=== PATIENT | male | born 1990 | race Caucasian/White ===

== ENCOUNTER 2016-05-25 19:27 | Emergency (ER) | payer MEDICARE, MEDICAID ==
[2016-05-25 19:42] VITALS: BP 166/86
[2016-05-25] MEDS ORDERED: NS 0.9% 1000 ML* 2,000 ML IV ONE (20:24)
[2016-05-25 20:45] LABS: Comments Flag Yes; Hematocrit 37 % (42-52); Hemoglobin 12.3 g/dl (14.0-18.0); Mean Corpuscular HGB Conc 33 g/dl (31-36); Mean Corpuscular Hemoglobin 24 pg (27-31); Mean Platelet Volume 8 um3 (7.4-10.4); Red Blood Count 5.07 10^6/ul (4.0-5.4); Red Cell Distribution Width 15 % (10.5-15); White Blood Count 4.5 10^3/ul (3.5-10.8)
[2016-05-25 20:46] LABS: Mean Corpuscular Volume 74 fL (80-94)
[2016-05-25 20:56] LABS: ALT 237 U/L (7-52); AST 94 U/L (13-39); Albumin 3.8 g/dL (3.2-5.2); Alkaline Phosphatase 223 U/L (34-104); Anion Gap 8 mmol/L (2-11); BUN/Creatinine Ratio 11.4 (8-20); Blood Urea Nitrogen 9 mg/dL (6-24); C Reactive Protein 17.75 mg/L (< 5.00); CO2 Carbon Dioxide 28 mmol/L (22-32); Calcium 9.4 mg/dL (8.6-10.3); Chloride 97 mmol/L (101-111); Creatine Kinase 63 U/L (10-223); EGFR Non-African American 120.5 (>60); Globulin 3.5 g/dL (2-4); Glucose 148 mg/dL (70-100); Lipase 14 U/L (11.0-82.0); Potassium 3.7 mmol/L (3.5-5.0); Sodium 133 mmol/L (133-145); Total Protein 7.3 g/dL (6.4-8.9)
[2016-05-25 20:56] LABS: Urine Bacteria Absent (Absent); Urine Bilirubin 2+ (Negative); Urine Glucose Negative (Negative); Urine Nitrite Negative (Negative)
[2016-05-25 20:59] LABS: Acetaminophen < 15 mcg/mL
[2016-05-25] MEDS ORDERED: Iodixanol 320 (CONTRAST) 100 ML SDV IV ONE (21:17)
--- NOTE | 2016-05-25 21:47 | RAD ---
INDICATION: Painless jaundice, history of hepatitis. COMPARISON: There are no prior studies available for comparison. TECHNIQUE: A CT scan of the abdomen and pelvis was performed with intravenous and without oral contrast following intravenous injection of 141 ml of Visipaque 320 nonionic contrast. Contiguous axial sections were obtained from the lung bases through the symphysis pubis. Images were reconstructed in the coronal and sagittal planes. FINDINGS: The lung bases are clear. No pleural effusion is present. The liver and spleen are markedly enlarged. The liver is decreased in attenuation consistent with fatty infiltration. No significant focal abnormality is seen. There appear to be varices in the splenic hilum. No calcified gallstones are seen. There is mild gallbladder wall thickening. The pancreas appears to be within normal limits. The kidneys and adrenal glands are normal in size. No hydronephrosis is seen. No significant focal renal abnormality is seen. The aorta is normal in caliber and demonstrates homogeneous contrast opacification. There are enlarged periportal lymph nodes measuring up to 2.5 cm in transverse dimension. There are also mildly prominent retroperitoneal lymph nodes in the upper abdomen measuring up to 1.0 cm in transverse dimension. The stomach, small and large bowel appear nondistended. The appendix is within normal limits. There is mild descending and sigmoid diverticulosis without evidence for diverticulitis. No free intraperitoneal air or fluid is seen. No significant focal osseous abnormality is seen. IMPRESSION: MARKED HEPATOSPLENOMEGALY. THERE IS MILD GALLBLADDER WALL THICKENING AND PERIPORTAL AND MILD RETROPERITONEAL LYMPHADENOPATHY. THESE FINDINGS ARE NONSPECIFIC ALTHOUGH WOULD RAISE THE POSSIBILITY OF HEPATITIS. IN ADDITION SPLENIC HILUM VARICES CONCERNING FOR THE POSSIBILITY OF PORTAL HYPERTENSION. AN ALTERNATIVE AND LESS LIKELY POSSIBILITY THAT WOULD ACCOUNT FOR MOST OF THESE FINDINGS WOULD BE LYMPHOMA. RECOMMEND CLINICAL CORRELATION.
--- NOTE | 2016-05-25 23:59 | ED ---
Lee Raza Billy, scribed for Sage Dumont MD on 05/25/16 at 2002 . GI/ HPI - HPI Summary HPI Summary: Patient is a 25 year-old male coming to [facility] for evaluation of dark, tea- colored urine for the last 2 days. Patient also reports that he has been constipated for a similar duration. He also noticed recently that his eyes appear to have a yellowish tint. Patient states that he has been using IV opiates intermittently for the last several years. He was also tested positive for hepatitis in the past. - History of Current Complaint Chief Complaint: EDUrogenitalProblems Time Seen by Provider: 05/25/16 19:54 Stated Complaint: DARK URINATION/JOINT PAIN Hx Obtained From: Patient Onset/Duration: Started Days Ago Timing: Constant Severity: Moderate Current Severity: Moderate Pain Intensity: 0 Associated Signs and Symptoms: Positive: Constipation, Other: - discolored urine , yellowish tint in eyes, Aggravating Factor(s): Nothing Alleviating Factor(s): Nothing - Additional Pertinent History Primary Care Physician: [id number] - Allergy/Home Medications Allergies/Adverse Reactions: Allergies Allergy/AdvReac Type Severity Reaction Status Date / Time Acetaminophen [From Tylenol] Allergy Intermediate Hives Verified 05/25/16 19:40 PMH/Surg Hx/FS Hx/Imm Hx Endocrine/Hematology History: Reports: Hx Diabetes - Type II Denies: Hx Thyroid Disease Cardiovascular History: Denies: Hx Hypertension Respiratory History: Denies: Hx Asthma, Hx Chronic Obstructive Pulmonary Disease (COPD) GI History: Denies: Hx Ulcer Musculoskeletal History: Reports: Hx Back Problems Denies: Hx Scoliosis Neurological History: Denies: Hx Headaches, Other Neuro Impairments/Disorders Psychiatric History: Reports: Hx Substance Abuse - IV drug use - Surgical History Surgery Procedure, Year, and Place: Abcess I+D bilateral AC's. Pleuracentesis Infectious Disease History: Yes Infectious Disease History: Reports: Hx of Known/Suspected MRSA - Left AC, History Other Infectious Disease - MRSA Denies: Hx Hepatitis, Hx Human Immunodeficiency Virus (HIV), Traveled Outside the [place] in Last 30 Days - Family History Known Family History: Positive: Hypertension, Diabetes - Social History Alcohol Use: None Alcohol Amount: pt denies alcohol use Substance Use Type: Reports: None, Heroin Substance Use Comment - Amount & Last Used: recent use, exact date unknown to SW Hx Tobacco Use: Yes Smoking Status (MU): Never Smoked Tobacco Type: Smokeless Tobacco Have You Smoked in the Last Year: No Review of Systems Positive: Other - yellow tint Positive: Other - constipation Positive: see HPI All Other Systems Reviewed And Are Negative: Yes Physical Exam Triage Information Reviewed: Yes Vital Signs On Initial Exam: Initial Vitals Temp Pulse Resp BP Pulse Ox 98 F 101 18 166/86 99 05/25/16 19:37 05/25/16 19:37 05/25/16 19:37 05/25/16 19:37 05/25/16 19:37 Vital Signs Reviewed: Yes Appearance: Positive: Well-Appearing, No Pain Distress Skin: Positive: Warm, Skin Color Reflects Adequate Perfusion, Dry Head/Face: Positive: Normal Head/Face Inspection Eyes: Positive: Other: - Scleral icterus. ENT: Positive: Normal ENT inspection Respiratory/Lung Sounds: Positive: Clear to Auscultation, Breath Sounds Present Cardiovascular: Positive: Tachycardia Abdomen Description: Positive: Nontender, Soft Musculoskeletal: Positive: Strength/ROM Intact, Edema Left - trace pedal edema, Edema Right - trace pedal edema Neurological: Positive: Normal, Sensory/Motor Intact, Alert, Oriented to Person Place, Time Psychiatric: Positive: Affect/Mood Appropriate - Josy Coma Scale Coma Scale Total: 15 Diagnostics - Vital Signs Vital Signs Temp Pulse Resp BP Pulse Ox 05/25/16 19:37 98 F 101 18 166/86 99 - Laboratory Lab Results: Lab Results 05/25/16 05/25/16 05/25/16 Range/Units 20:00 20:21 20:21 WBC 4.5 (3.5-10.8) 10^3/ul RBC 5.07 (4.0-5.4) 10^6/ul Hgb 12.3 L (14.0-18.0) g/dl Hct 37 L (42-52) % MCV 74 L (80-94) fL MCH 24 L (27-31) pg MCHC 33 (31-36) g/dl RDW 15 (10.5-15) % Plt Count 153 (150-450) 10^3/ul MPV 8 (7.4-10.4) um3 Neut % (Auto) 45.6 (38-83) % Lymph % (Auto) 41.2 (25-47) % [place] % (Auto) 10.1 H (1-9) % Eos % (Auto) 2.4 (0-6) % Baso % (Auto) 0.7 (0-2) % Absolute Neuts (auto) 2.0 (1.5-7.7) 10^3/ul Absolute Lymphs (auto) 1.8 (1.0-4.8) 10^3/ul Absolute Monos (auto) 0.5 (0-0.8) 10^3/ul Absolute Eos (auto) 0.1 (0-0.6) 10^3/ul Absolute Basos (auto) 0 (0-0.2) 10^3/ul Absolute Nucleated RBC 0 10^3/ul Nucleated RBC % 0 INR (Anticoag Therapy) 1.05 (0.89-1.11) APTT 28.3 (26.0-36.3) seconds Sodium (133-145) mmol/L Potassium (3.5-5.0) mmol/L Chloride (101-111) mmol/L Carbon Dioxide (22-32) mmol/L Anion Gap (2-11) mmol/L BUN (6-24) mg/dL Creatinine (0.67-1.17) mg/dL Est GFR ( Amer) (>60) Est GFR (Non-Af Amer) (>60) BUN/Creatinine Ratio (8-20) Glucose (70-100) mg/dL Lactic Acid (0.5-2.0) mmol/L Calcium (8.6-10.3) mg/dL Total Bilirubin (0.2-1.0) mg/dL AST (13-39) U/L ALT (7-52) U/L Alkaline Phosphatase (34-104) U/L Total Creatine Kinase (10-223) U/L C-Reactive Protein (< 5.00) mg/L Total Protein (6.4-8.9) g/dL Albumin (3.2-5.2) g/dL Globulin (2-4) g/dL Albumin/Globulin Ratio (1-3) Lipase (11.0-82.0) U/L Urine Color [place] Urine Appearance Turbid Urine pH 5.0 (5-9) Ur Specific [place] 1.025 (1.010-1.030) Urine Protein 1+(30 mg/dl) H (Negative) Urine Ketones Negative (Negative) Urine Blood Negative (Negative) Urine Nitrate Negative (Negative) Urine Bilirubin 2+ (Negative) Urine Urobilinogen Positive H (Negative) Ur Leukocyte Esterase Negative (Negative) Urine WBC (Auto) Absent (Absent) Urine RBC (Auto) Trace(0-2/hpf) (Absent) Ur Squamous Epith Cells Present H (Absent) Amorphous Crystals Present H (Absent) Urine Bacteria Absent (Absent) Urine Glucose Negative (Negative) Urine Ascorbic Acid Not Reportable Acetaminophen mcg/mL 05/25/16 05/25/16 Range/Units 20:21 20:21 WBC (3.5-10.8) 10^3/ul RBC (4.0-5.4) 10^6/ul Hgb (14.0-18.0) g/dl Hct (42-52) % MCV (80-94) fL MCH (27-31) pg MCHC (31-36) g/dl RDW (10.5-15) % Plt Count (150-450) 10^3/ul MPV (7.4-10.4) um3 Neut % (Auto) (38-83) % Lymph % (Auto) (25-47) % [place] % (Auto) (1-9) % Eos % (Auto) (0-6) % Baso % (Auto) (0-2) % Absolute Neuts (auto) (1.5-7.7) 10^3/ul Absolute Lymphs (auto) (1.0-4.8) 10^3/ul Absolute Monos (auto) (0-0.8) 10^3/ul Absolute Eos (auto) (0-0.6) 10^3/ul Absolute Basos (auto) (0-0.2) 10^3/ul Absolute Nucleated RBC 10^3/ul Nucleated RBC % INR (Anticoag Therapy) (0.89-1.11) APTT (26.0-36.3) seconds Sodium 133 (133-145) mmol/L Potassium 3.7 (3.5-5.0) mmol/L Chloride 97 L (101-111) mmol/L Carbon Dioxide 28 (22-32) mmol/L Anion Gap 8 (2-11) mmol/L BUN 9 (6-24) mg/dL Creatinine 0.79 (0.67-1.17) mg/dL Est GFR ( Amer) 155.0 (>60) Est GFR (Non-Af Amer) 120.5 (>60) BUN/Creatinine Ratio 11.4 (8-20) Glucose 148 H (70-100) mg/dL Lactic Acid 0.8 (0.5-2.0) mmol/L Calcium 9.4 (8.6-10.3) mg/dL Total Bilirubin 3.80 H (0.2-1.0) mg/dL AST 94 H (13-39) U/L ALT 237 H (7-52) U/L Alkaline Phosphatase 223 H (34-104) U/L Total Creatine Kinase 63 (10-223) U/L C-Reactive Protein 17.75 H (< 5.00) mg/L Total Protein 7.3 (6.4-8.9) g/dL Albumin 3.8 (3.2-5.2) g/dL Globulin 3.5 (2-4) g/dL Albumin/Globulin Ratio 1.1 (1-3) Lipase 14 (11.0-82.0) U/L Urine Color Urine Appearance Urine pH (5-9) Ur Specific [place] (1.010-1.030) Urine Protein (Negative) Urine Ketones (Negative) Urine Blood (Negative) Urine Nitrate (Negative) Urine Bilirubin (Negative) Urine Urobilinogen (Negative) Ur Leukocyte Esterase (Negative) Urine WBC (Auto) (Absent) Urine RBC (Auto) (Absent) Ur Squamous Epith Cells (Absent) Amorphous Crystals (Absent) Urine Bacteria (Absent) Urine Glucose (Negative) Urine Ascorbic Acid Acetaminophen < 15 mcg/mL Result Diagrams: 05/25/16 20:21 05/25/16 20:21 Lab Statement: Any lab studies that have been ordered have been reviewed, and results considered in the medical decision making process. - CT abd/pel CT Interpretation Completed By: Radiologist - MARKED HEPATOSPLENOMEGALY. THERE IS MILD GALLBLADDER WALL THICKENING AND PERIPORTAL AND MILD RETROPERITONEAL LYMPHADENOPATHY. THESE FINDINGS ARE NONSPECIFIC ALTHOUGH WOULD RAISE THE POSSIBILITY OF HEPATITIS. IN ADDITION SPLENIC HILUM VARICES CONCERNING FOR THE POSSIBILITY OF PORTAL HYPERTENSION. AN ALTERNATIVE AND LESS LIKELY POSSIBILITY THAT WOULD ACCOUNT FOR MOST OF THESE FINDINGS WOULD BE LYMPHOMA. RECOMMEND CLINICAL CORRELATION. GIGU Course/Dx - Course Course Of Treatment: NO CRITICAL CARE TIME Assessment/Plan: DISCUSSED RESULTS WITH THE PATIENT AND CAMILLE ANDERSON. PATIENT HAS NO PAIN AT THIS TIME. THE PLAN IS FOR THE PATIENT TO FOLLOW UP OUT PATIENT. HE WAS TOLD TO RETURN TO THE EMERGENCY DEPARTMENT IF HE FELT WORSE; PAIN, CONFUSION, HE FELT ILL OR ANY QUESTIONS OR CONCERNS. DISCHARGE HOME STABLE. - Diagnoses Provider Diagnoses: Hepatitis Discharge - Discharge Plan Condition: Stable Disposition: HOME Patient Education Materials: Hepatitis C (ED) Referrals: [facility] [place] [facility]FERRAL [Outside] [facility] [Provider Group] Additional Instructions: CALL THE PHYSICIAN REFERRAL NUMBER ON 05/27/16, TO FIND A DOCTOR TO FOLLOW UP WITH FOR YOUR HEPATITIS. FOLLOW UP WITH [facility], [phone]. CALL 05/27/16, IN THE MORNING FOR FOLLOW UP. RETURN TO THE EMERGENCY DEPARTMENT FOR ANY WORSENING OF YOUR CONDITION; PAIN, FEVER, CONFUSION, YOU FEEL ILL, YOU HAVE BLOOD IN YOUR STOOL OR VOMIT OR QUESTIONS OR CONCERNS. The documentation as recorded by the Lee lang Billy accurately reflects the service I personally performed and the decisions made by me, Sage Dumont MD.
[2016-05-26 12:15] LABS: Call Hep C TO BE CALLED
== END 2016-05-26 00:26 | disposition home or self-care (01) ==
LOC: ED 19:27
DX: K75.9 Inflammatory liver disease, unspecified (principal); K59.00 Constipation, unspecified
CPT/HCPCS: 36415; 74177; 80053; 80074; 80329; 81003; 81015; 82550; 83605; 83690; 85025; 85610; 85730; 86140; 99282; G0480; Q9967

== ENCOUNTER 2016-11-05 13:46 | Emergency (ER) | payer MEDICARE, MEDICAID ==
[2016-11-05 14:13] VITALS: BP 143/87
--- NOTE | 2016-11-05 16:29 | UC ---
Skin Complaint HPI - HPI Summary HPI Summary: 26 yo male with expanding red rash left popliteal fossa not painful or itchy no know bite or sting he is a diabetic who has been non compliant with meds and follow up hx of IV drug abuse hx of MRSA - History of Current Complaint Chief Complaint: UCRash Time Seen by Provider: 11/05/16 15:56 Stated Complaint: RASH Hx Obtained From: Patient Onset/Duration: Gradual Onset, Lasting Weeks - 3 Timing: Constant Onset Severity: Mild Current Severity: Moderate Pain Intensity: 0 Pain Scale Used: 0-10 Numeric Location: Other - left popliteal fossa Character: Redness Aggravating: Nothing Alleviating: Nothing Associated Signs & Symptoms: Positive: Rash. Negative: Nausea, Vomiting, Numbness, Thirst, Diaphoresis, Weakness, Pallor, Shivering, Difficulty Breathing , Fever, Chills, Cough, Wheezing, Chest Pain, Hoarseness, Throat Tightening, Abdominal Pain, Lightheadedness, Syncope, Drainage, Bruising, Tenderness, Red Streaks, Joint Swelling - Allergy/Home Medications Allergies/Adverse Reactions: Allergies Allergy/AdvReac Type Severity Reaction Status Date / Time Acetaminophen [From Tylenol] Allergy Intermediate Hives Verified 05/25/16 19:40 Home Medications: Home Medications Buprenorphine/Naloxone SL TAB* [Suboxone 8-2 mg SL TAB*] 1 tab SL 11/05/16 [ History] Review of Systems Constitutional: Negative Skin: Rash Eyes: Negative ENT: Negative Respiratory: Negative Cardiovascular: Negative Gastrointestinal: Negative Genitourinary: Negative Motor: Negative Neurovascular: Negative Musculoskeletal: Negative Neurological: Negative Psychological: Negative Is Patient Immunocompromised?: No All Other Systems Reviewed And Are Negative: Yes PMH/Surg Hx/FS Hx/Imm Hx Previously Healthy: Yes Endocrine History: Diabetes - Surgical History Surgical History: Yes Surgery Procedure, Year, and Place: Abcess I+D bilateral AC's. 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 Negative: Nasal congestion, Nasal drainage, Tonsillar exudate, Trismus, Muffled/hoarse voice Neck: Positive: Supple, Nontender, No Lymphadenopathy Respiratory: Positive: Lungs clear, Normal breath sounds, No respiratory distress, No accessory muscle use Cardiovascular: Positive: RRR, No Murmur. Negative: Tachycardia - p 88 during my exam Abdomen Description: Positive: Nontender, No Organomegaly. Negative: CVA Tenderness (R), CVA Tenderness (L) Musculoskeletal: Positive: ROM Intact, No Edema Neurological: Positive: Alert Psychological Exam: Normal Skin Exam: Other - see image Course/Dx - Course Course Of Treatment: patient states he doesn't see MDs for his medical problems because he doesn't like going to appts and doesn't like paying copays. Aware of the serious nature of DM and potenital complications - Diagnoses Provider Diagnoses: rash left popliteal fossa-? erthyema migrans Discharge - Discharge Plan Condition: Stable Disposition: HOME Prescriptions: DOXYcycline CAP(*) [DOXYcycline 100MG CAP(*)] 100 mg PO BID #42 cap Patient Education Materials: Lyme Disease (ED) Referrals: [facility] [place] [facility] [Outside] - As Soon As Possible Additional Instructions: you need to find a dinking machine operator to follow your diabetes and Images Front/Back of Body, Lg ([place]hea): 1 - 12 x 26 cm area of erthyema with hint of expanding rings/not raised/no palpitable flutuance or mass or venous cords
[2016-11-08 15:41] LABS: Lyme Disease IgG Ab WB Negative (Negative)
--- NOTE | 2016-11-09 13:57 | UC ---
Progress - Progress Note Progress Note: please call and inform pt of positive test for lyme dz. continue doxy and f/u with pcp. encourage probiotics.
== END 2016-11-05 16:32 | disposition home or self-care (01) ==
LOC: UCEAST 13:46
DX: A69.20 Lyme disease, unspecified (principal)
CPT/HCPCS: 86617; 86618; 99212; G0463

== ENCOUNTER 2017-02-07 18:50 | Emergency (ER) | payer MEDICARE, MEDICAID ==
[2017-02-07 18:57] VITALS: BP 149/91
[2017-02-07] MEDS ORDERED: Lidocaine 2% PF * 5 ML VIAL INJ ONE (20:44)
[2017-02-07] MEDS ORDERED: Cephalexin CAP* 500 MG PO ONE ×2 (21:06)
[2017-02-07] MEDS ORDERED: Sulfamethox/Trimethoprim DS 800/160* TAB PO ONE ×2 (21:06→21:07)
--- NOTE | 2017-02-07 21:12 | UC ---
Skin Complaint HPI - HPI Summary HPI Summary: 26 YO MALE WITH HX OF IVDA SHOT UP 4 DAYS AGO AFTER ABOUT A YEAR OF SOBRIETY TURNED RED/SWOLLEN TO SOME LEFT OVER DOXY AND REDNESS IMPROVED NO F/C NO HX HEART MURMUR WAS ANXIOUS EARLY BUT THIS HAS COMPLETELY RESOLVED - History of Current Complaint Chief Complaint: UCUpperExtremity Time Seen by Provider: 02/07/17 20:34 Stated Complaint: POSSIBLE ANXIETY ATTACK Hx Obtained From: Patient Onset/Duration: Gradual Onset, Lasting Days - 4 Timing: Constant Onset Severity: Mild Current Severity: Moderate Pain Intensity: 6 Pain Scale Used: 0-10 Numeric Character: Redness, Raised, Painful Aggravating Factor(s): Touch Alleviating Factor(s): Nothing Associated Signs & Symptoms: Positive: Tenderness - Allergy/Home Medications Allergies/Adverse Reactions: Allergies Allergy/AdvReac Type Severity Reaction Status Date / Time Acetaminophen [From Tylenol] Allergy Intermediate Hives Verified 02/07/17 18:58 Review of Systems Constitutional: Negative Skin: Negative Eyes: Negative ENT: Negative Respiratory: Negative Cardiovascular: Negative Gastrointestinal: Negative Genitourinary: Negative Motor: Negative Neurovascular: Negative Musculoskeletal: Negative Neurological: Negative Psychological: Negative Is Patient Immunocompromised?: No All Other Systems Reviewed And Are Negative: Yes PMH/Surg Hx/FS Hx/Imm Hx Previously Healthy: Yes - EXCEPT IVDA/ABSCESSES - Surgical History Surgical History: Yes Surgery Procedure, Year, and Place: Abcess I+D bilateral AC's. Pleuracentesis - Family History Known Family History: Positive: Hypertension, Diabetes - Social History Alcohol Use: None Alcohol Amount: pt denies alcohol use Substance Use Type: None Substance Use Comment - Amount & Last Used: recovering addict. no use in over 1 year Smoking Status (MU): Never Smoked Tobacco Type: Smokeless Tobacco Have You Smoked in the Last Year: No - Immunization History Most Recent Influenza Vaccination: 2008 Most Recent Tetanus Shot: unk Most Recent Pneumonia Vaccination: 2010, per pt Physical Exam Triage Information Reviewed: Yes Appearance: Well-Appearing, No Pain Distress, Well-Nourished Vital Signs: Initial Vital Signs Temp 96.6 F 02/07/17 18:52 Pulse 112 02/07/17 18:52 Resp 18 02/07/17 18:52 BP 149/91 02/07/17 18:52 Pulse Ox 99 02/07/17 18:52 Vital Signs Reviewed: Yes Eyes: Positive: Conjunctiva Clear ENT: Positive: Hearing grossly normal, Uvula midline. Negative: Nasal congestion, Nasal drainage, Trismus, Muffled voice, Hoarse voice Neck: Positive: Supple, Nontender, No Lymphadenopathy Respiratory: Positive: Lungs clear, Normal breath sounds, No respiratory distress, No accessory muscle use Cardiovascular: Positive: RRR Musculoskeletal: Positive: ROM Intact Neurological: Positive: Alert Skin Exam: Other - SEE IMAGE Course/Dx - Diagnoses Provider Diagnoses: RIGHT ELBOW ABSCESS WITH OVERLING CELLULITIS Procedures - Incision and Drainage Site: DISTAL TO RIGHT ELBOW Anesthesia: Local Instrument(s): Scalpel, Other - SEROSANGINOUS D/C...NO BRENDA PUS...C&S OBTAINED Packing: Other - NO PACKING/STERILE DRESSING WAS APPLIED/TOLERATED PROCEDURE WELL Discharge - Discharge Plan Condition: Stable Disposition: HOME Prescriptions: Cephalexin CAP* [Keflex CAP*] 500 mg PO QID #28 cap Sulfamethox/Trimethoprim DS* [Bactrim DS 800/160 TAB*] 1 tab PO BID #14 tab Patient Education Materials: Abscess (ED) Referrals: [facility] [place] [facility]ERR[facility] [Outside] - As Soon As Possible Additional Instructions: warm compresses 4x day until better TO ER FOR WORSENING SYMPTOMS RECHECK IN 48-72 HOURS IF NOT BETTER A CULTURE IS PENDING Images Front/Back of Body, Lg ([place]): 1 - 2X2CM AREA OF INDURATION WITH 4 X 4 CM AREA OF OVERLYING CELLULITIS. NO FLUTUANCE
--- NOTE | 2017-02-08 16:02 | ED ---
Progress - Progress Note Progress Note: no change Course/Dx - Diagnoses Provider Diagnoses: Wound discharge
--- NOTE | 2017-02-09 17:25 | ED ---
Progress - Progress Note Progress Note: no change 02/09/17 no change Course/Dx - Diagnoses Provider Diagnoses: Wound discharge
== END 2017-02-07 21:33 | disposition home or self-care (01) ==
LOC: UCEAST 18:50
DX: F19.11 Other psychoactive substance abuse, in remission (principal); L02.413 Cutaneous abscess of right upper limb; L03.113 Cellulitis of right upper limb
CPT/HCPCS: 10060; 87070; 87205; 99213; A9270-GY; G0463

== ENCOUNTER 2017-04-19 21:30 | Emergency (ER) | payer MEDICARE, MEDICAID ==
[2017-04-19 21:43] VITALS: BP 139/83
--- NOTE | 2017-04-19 22:19 | UC ---
Vanessa Raza Emily, scribed for Sage Dumont MD on 04/19/17 at 2201 . Back Pain HPI - HPI Summary HPI Summary: This patient is a 26 year old M presenting to urgent care with a chief complaint of waxing and waning L flank pain that began 2 days ago. The patient rates the pain 6/10 in severity. Symptoms aggravated by movement. Symptoms alleviated by nothing. Patient reports difficulty passing stool. Patient denies fever, chills, testicular pain, and hematuria. - History of Current Complaint Chief Complaint: UCBackPain Stated Complaint: BACK PAIN Time Seen by Provider: 04/19/17 21:52 Hx Obtained From: Patient Onset/Duration: Sudden Onset, Lasting Days, Still Present Timing: Constant Severity Initially: Moderate Severity Currently: Moderate Pain Intensity: 4 Pain Scale Used: 0-10 Numeric Back Pain: Is Discrete @ - L flank Aggravating Factor(s): Movement Alleviating Factor(s): Nothing Associated Signs And Symptoms: Positive: Other - Positive difficulty passing stool. Negative fever, chills, testicular pain, and hematuria. - Allergies/Home Medications Allergies/Adverse Reactions: Allergies Allergy/AdvReac Type Severity Reaction Status Date / Time acetaminophen [From Tylenol] Allergy Severe Hives Verified 04/19/17 21:43 Home Medications: Home Medications Insulin GLARGINE(*) [Lantus(*)] 20 units SUBCUT BEDTIME 04/19/17 [History Confirmed 04/19/17] Sinus Relief Med* 04/19/17 [History] PMH/Surg Hx/FS Hx/Imm Hx Previously Healthy: No Endocrine History: Diabetes GI/ History: Other Other GI/ History: Negative kidney stones - Surgical History Surgical History: Yes Surgery Procedure, Year, and Place: Abcess I+D bilateral AC's. Pleuracentesis - Family History Known Family History: Positive: Hypertension, Diabetes - Social History Occupation: Disabled Lives: Alone Alcohol Use: None Alcohol Amount: pt denies alcohol use Substance Use Type: Other Substance Use Comment - Amount & Last Used: SUBOXONE Smoking Status (MU): Never Smoked Tobacco Type: Smokeless Tobacco Have You Smoked in the Last Year: No - Immunization History Most Recent Influenza Vaccination: 2008 Most Recent Tetanus Shot: unk Most Recent Pneumonia Vaccination: 2010, per pt Review of Systems Constitutional: Other - Negative fever and chills Genitourinary: Other - Negative hematuria and testicular pain Musculoskeletal: Other: - Positive L flank pain All Other Systems Reviewed And Are Negative: Yes Physical Exam - Summary Physical Exam Summary: General: well-appearing, no pain distress Skin: warm, color reflects adequate perfusion, dry Head: normal Eyes: EOMI, ESTER ENT: normal Neck: supple, nontender Respiratory: CTA, breath sounds present Cardiovascular: RRR Abdomen: soft, Mild tenderness to percussion L flank Bowel: present Musculoskeletal: normal, strength/ROM intact Neurological: normal, sensory/motor intact, A&O x3 Psychological: affect/mood appropriate Triage Information Reviewed: Yes Vital Signs: Initial Vital Signs Temp 99.4 F 04/19/17 21:38 Pulse 92 04/19/17 21:38 Resp 16 04/19/17 21:38 BP 139/83 04/19/17 21:38 Pulse Ox 97 04/19/17 21:38 Vital Signs Reviewed: Yes Back Pain Course/Dx - Course Course Of Treatment: BP noted and advised to follow up with PCP. PATIENT REPORTS HE HAS AN APPOINTMENT WITH GI FOR HIS HEPATITIS C ON 04/21/17. PAIN 5/ 10 IN CLINIC. AFEBRILE. UA NORMAL. NO ABDOMINAL TENDERNESS TO EXAM. DISCUSSED GOING TO THE EMRGENCY DEPARTMENT FOR FURTHER EVALUATION/LABS/CT. THE PATIENT DECLINED GOING TO THE ED. HE WILL F/U WITH HIS PMD/GI AND GO TO THE ED IF HIS SX PERSIST OR WORSEN. - Differential Dx/Diagnosis Provider Diagnoses: LEFT FLANK PAIN. Elevated BP without diagnosis of HTN Discharge - Discharge Plan Condition: Stable Disposition: HOME Patient Education Materials: Flank Pain (ED) Referrals: Maranda Novoa MD [Primary Care Provider] - Additional Instructions: FOLLOW UP WITH YOUR DOCTOR. GO TO THE EMERGENCY DEPARTMENT FOR ANY WORSENING OF YOUR CONDITION; PAIN, FEVER , YOU FEEL ILL OR QUESTIONS OR CONCERNS. YOUR BLOOD PRESSURE WAS ELEVATED DURING TODAY'S VISIT; FOLLOW UP WITH YOUR PCP WITHIN ONE WEEK FOR FURTHER EVALUATION. The documentation as recorded by the Vanessa lang Emily accurately reflects the service I personally performed and the decisions made by me, Sage Dumont MD.
[2017-04-20 14:28] LABS: ABS Basophils 0.1 10^3/ul (0-0.2); ABS Eosinophils 0.1 10^3/ul (0-0.6); ABS Monocytes 0.5 10^3/ul (0-0.8); ABS Neutrophils 2.8 10^3/ul (1.5-7.7); ABS Nucleated RBC 0 10^3/ul; Eosinophil % 2.1 % (0-6); Hematocrit 41 % (42-52); Hemoglobin 13.7 g/dl (14.0-18.0); Lymphocyte % 37.3 % (25-47); Mean Corpuscular HGB Conc 33 g/dl (31-36); Mean Corpuscular Hemoglobin 25 pg (27-31); Mean Corpuscular Volume 75 fL (80-94); Mean Platelet Volume 8 um3 (7.4-10.4); Nucleated Red Blood Cells % 0.3; Platelet Count 275 10^3/ul (150-450); Red Blood Count 5.49 10^6/ul (4.0-5.4); Red Cell Distribution Width 15 % (10.5-15); White Blood Count 5.5 10^3/ul (3.5-10.8)
[2017-04-20 14:34] LABS: INR 0.94 (0.77-1.02)
[2017-04-20 14:38] LABS: EGFR Non-African American 137.4 (>60)
--- NOTE | 2017-04-21 07:39 | UC ---
- Progress Note Progress Note: NORMAL H/H BUT LOW INDICES ROUTINE FOLLOW UP WITH PMD IF NOT PMD GIVE HIM CRISTINA LINARES'S #
== END 2017-04-19 22:40 | disposition home or self-care (01) ==
LOC: UCEAST 21:30
DX: R10.9 Unspecified abdominal pain (principal); M54.9 Dorsalgia, unspecified; Z88.6 Allergy status to analgesic agent; E11.9 Type 2 diabetes mellitus without complications; Z79.4 Long term (current) use of insulin
CPT/HCPCS: 36415; 80053; 81003; 83690; 85025; 85610; 99211; G0463

== ENCOUNTER 2017-07-15 16:56 | Emergency (ER) | payer MEDICARE, MEDICAID ==
[2017-07-15 17:48] VITALS: BP 119/65
--- NOTE | 2017-07-15 17:57 | UC ---
Skin Complaint HPI - HPI Summary HPI Summary: 27 yo male presents with abscess to left hand right forearm. He tells me that he recently "relapsed" and was injecting IV drugs into his hands and arms a few days ago. He has had many abscesses in the past - at one point had a "whole right arm infection" and was hospitalized for a week. First noticed some redness and pain earlier today so he wanted to "get ahead of it" and get an antibiotic. Denies fever, chills, or decreased ROM. - History of Current Complaint Chief Complaint: UCUpperExtremity Time Seen by Provider: 07/15/17 17:57 Stated Complaint: SORE ON ARM Hx Obtained From: Patient Onset/Duration: Sudden Onset Onset Severity: Mild Current Severity: Moderate Pain Intensity: 6 Pain Scale Used: 0-10 Numeric - Allergy/Home Medications Allergies/Adverse Reactions: Allergies Allergy/AdvReac Type Severity Reaction Status Date / Time acetaminophen [From Tylenol] Allergy Severe Hives Verified 07/15/17 17:48 Home Medications: Home Medications Furosemide TAB* [Lasix TAB*] 20 mg PO DAILY 07/15/17 [History Confirmed 07/15/17 ] metFORMIN* [Glucophage 1000 MG TAB *] 1,000 mg PO BID 07/15/17 [History Confirmed 07/15/17] Review of Systems Constitutional: Negative Skin: Other - Abscess b/l arm Respiratory: Negative Cardiovascular: Negative Neurovascular: Negative Musculoskeletal: Negative Neurological: Negative Psychological: Negative All Other Systems Reviewed And Are Negative: Yes PMH/Surg Hx/FS Hx/Imm Hx Endocrine History: Diabetes Cardiovascular History: Hypertension - Surgical History Surgical History: Yes Surgery Procedure, Year, and Place: Abcess I+D bilateral AC's. Pleuracentesis - Family History Known Family History: Positive: Hypertension, Diabetes - Social History Occupation: Employed Full-time Lives: With Family Alcohol Use: Rare Alcohol Amount: pt denies alcohol use Substance Use Type: Other Substance Use Comment - Amount & Last Used: SUBOXONE, relapsed on 07/10/17 Smoking Status (MU): Never Smoked Tobacco Type: Smokeless Tobacco Have You Smoked in the Last Year: No - Immunization History Most Recent Influenza Vaccination: 2008 Most Recent Tetanus Shot: unk Most Recent Pneumonia Vaccination: 2010, per pt Physical Exam - Summary Physical Exam Summary: GENERAL: NAD. WDWN. No pain distress. SKIN: Right forearm: approx 2.0cm area of mild TTP WITHOUT appreciable induration, edema, or erythema. No streaking, bleeding, or drainage. Left hand/ wrist: at the ulnar aspect of the wrist there is a 1.0cm mildly erythematous abscess. No induration, streaking, drainage, or bleeding. NTTP. NECK: Supple. Nontender. No lymphadenopathy. CHEST: No accessory muscle use. Breathing comfortably and in no distress. CV: RRR. Without m/r/g. NEURO: Alert. CN II-XII grossly intact. PSYCH: Age appropriate behavior. Triage Information Reviewed: Yes Vital Signs: Initial Vital Signs Temp 98.2 F 07/15/17 17:40 Pulse 99 07/15/17 17:40 Resp 18 07/15/17 17:40 BP 119/65 07/15/17 17:40 Pulse Ox 96 07/15/17 17:40 Course/Dx - Course Course Of Treatment: Skin abscess. Rx for Bactrim. Likely will need these incised and drained, but are not appreciable enough yet - he will return if they do not improve with anbx alone. - Diagnoses Provider Diagnoses: Skin abscess Discharge - Sign-Out/Discharge Documenting (check all that apply): Discharge/Admit/Transfer - Discharge Plan Condition: Stable Disposition: HOME Prescriptions: Sulfamethox/Trimethoprim DS* [Bactrim DS 800/160 TAB*] 1 tab PO BID #20 tab Patient Education Materials: Abscess (ED) Referrals: No Primary Care Phys,NOPCP [Primary Care Provider] - Additional Instructions: If you develop a fever, shortness of breath, chest pain, new or worsening symptoms - please call your PCP or go to the ED. - Billing Disposition and Condition Condition: STABLE Disposition: HOME
== END 2017-07-15 18:25 | disposition home or self-care (01) ==
LOC: UCEAST 16:56
DX: L02.413 Cutaneous abscess of right upper limb (principal); L02.512 Cutaneous abscess of left hand; E11.9 Type 2 diabetes mellitus without complications; Z79.84 Long term (current) use of oral hypoglycemic drugs; I10 Essential (primary) hypertension; Z88.6 Allergy status to analgesic agent
CPT/HCPCS: 99212; G0463

== ENCOUNTER 2017-09-02 17:45 | Emergency (ER) | payer MEDICARE, MEDICAID ==
[2017-09-02 18:03] VITALS: BP 115/59
[2017-09-02] MEDS ORDERED: Ibuprofen TAB* 600 MG PO ONE (18:18)
--- NOTE | 2017-09-02 18:26 | UC ---
HPI Febrile Illness - HPI Summary HPI Summary: This patient is a 27 year old M presenting to [facility] with a chief complaint of fever since 16:30. The patient reports that his peak temperature was measured at 102 using his thermometer from home. The patient rates the pain 0/10 in severity. Symptoms aggravated by heat. Symptoms alleviated by nothing. Patient reports rapid heart rate, headache, diaphoresis, chills, tremors, constipation, muscle pain in his left arm, and swollen lymph nodes. Patient denies any recent bug bites. The patient takes Metformin and suboxone. The patient reports that he took his regular dose of suboxone at his regular time today. The patient reports that he took Tylenol earlier. The patient has hx of type II diabetes and notes that he checked his sugar at 17:30 and it was 153 after eating ice cream. - History of Current Complaint Chief Complaint: UCGeneralIllness Time Seen by Provider: 09/02/17 18:08 Hx Obtained From: Patient Onset/Duration: Started Hours Ago - 2 hours, Atraumatic, Still Present Timing: Constant, Lasting Hours Temperature: 102 F Current Severity: None Pain Intensity: 0 Pain Scale Used: 0-10 Numeric Aggravating Factors: Other: - heat exposure Alleviating Factors: Nothing Associated Signs and Symptoms: Chills, Diaphoresis, Headache, Myalgia - left arm pain, Other: - tremors, constipation, rapid heart rate, swollen lymph nodes - Additional Pertinent History Primary Care Physician: [id number] - Allergy/Home Medications Allergies/Adverse Reactions: Allergies Allergy/AdvReac Type Severity Reaction Status Date / Time acetaminophen [From Tylenol] Allergy Severe Hives Verified 09/02/17 17:51 PMH/Surg Hx/FS Hx/Imm Hx Endocrine History: Diabetes - type II - Surgical History Surgical History: Yes Surgery Procedure, Year, and Place: Abcess I+D bilateral AC's. Pleuracentesis - Family History Known Family History: Positive: Hypertension, Diabetes - Social History Alcohol Use: None Alcohol Amount: pt denies alcohol use Substance Use Type: None Substance Use Comment - Amount & Last Used: SUBOXONE, relapsed on 07/10/17 Smoking Status (MU): Never Smoked Tobacco Type: Smokeless Tobacco Amount Used/How Often: 1 can/ day Have You Smoked in the Last Year: No - Immunization History Most Recent Influenza Vaccination: 2008 Most Recent Tetanus Shot: unk Most Recent Pneumonia Vaccination: 2010, per pt Review of Systems Constitutional: Fever, Chills, Other - diaphoresis ENT: Other - swollen lymph nodes Cardiovascular: Palpitations - rapid heart rate Gastrointestinal: Other - constipation Musculoskeletal: Myalgia - left arm pain Neurological: Headache, Other - tremors All Other Systems Reviewed And Are Negative: Yes Physical Exam - Summary Physical Exam Summary: General: well-appearing, no pain distress Skin: warm, color reflects adequate perfusion, sweating profusely Head: normal Eyes: EOMI, ESTER ENT: normal Neck: supple, nontender Respiratory: CTA, breath sounds present Cardiovascular: tachycardia, regular rhythm Abdomen: soft, nontender Bowel: present Musculoskeletal: normal, strength/ROM intact Neurological: sensory/motor intact, A&O x3 Psychological: affect/mood appropriate Triage Information Reviewed: Yes Vital Signs: Initial Vital Signs Temp 99.3 F 09/02/17 17:55 Pulse 132 09/02/17 17:55 Resp 22 09/02/17 17:55 BP 115/59 09/02/17 17:55 Pulse Ox 97 09/02/17 17:55 Vital Signs Reviewed: Yes Course/Dx - Course Course Of Treatment: IMPROVED IN CLINIC AFTER BEING IN AN AIR CONDITIONED ROOM AND DRINKING COLD WATER. F/U PMD; RECHECK SOONER IF WORSE. - Diagnoses Clinic Provider Diagnoses: HEAT EXHAUSTION. DEHYDRATION Discharge - Sign-Out/Discharge Documenting (check all that apply): Patient Departure - Discharge Plan Condition: Stable Disposition: HOME Patient Education Materials: Dehydration (ED), Heat Exhaustion (ED) Referrals: [facility]ICIAN REFERRAL [Outside] Additional Instructions: FOLLOW UP WITH YOUR DOCTOR. GET RECHECKED FOR ANY WORSENING OF YOUR CONDITION OR QUESTIONS OR CONCERNS. - Billing Disposition and Condition Condition: STABLE Disposition: Home
== END 2017-09-02 19:10 | disposition home or self-care (01) ==
LOC: UCEAST 17:45
DX: T67.5XXA Heat exhaustion, unspecified, initial encounter (principal); X30.XXXA Exposure to excessive natural heat, initial encounter; Y93.9 Activity, unspecified; Y92.9 Unspecified place or not applicable; E86.0 Dehydration; R61 Generalized hyperhidrosis; R51 Headache; M79.1 Myalgia; R25.1 Tremor, unspecified; K59.00 Constipation, unspecified; R00.0 Tachycardia, unspecified; R59.1 Generalized enlarged lymph nodes; E11.9 Type 2 diabetes mellitus without complications; Z88.6 Allergy status to analgesic agent; Z82.49 Family history of ischemic heart disease and other diseases of the circulatory system; Z83.3 Family history of diabetes mellitus; F17.220 Nicotine dependence, chewing tobacco, uncomplicated
CPT/HCPCS: 93005; 99212; A9270-GY; G0463

== ENCOUNTER 2017-10-06 13:39 | Emergency (ER) | payer MEDICARE, MEDICAID ==
[2017-10-06 13:59] VITALS: BP 163/96
--- NOTE | 2017-10-06 14:04 | UC ---
Skin Complaint HPI - HPI Summary HPI Summary: This is scribe, Ben Poe, documenting for attending Dr. Fermin Avina MD. A 27 y/o [place] [facility] [place] pain and erythema onset two days ago. Denies fever, shakes and chills. Aggravating factors: ambulation. He says he squeezed the area two days ago because it looked like a blister. He denies tick bite. Pt was sent from his work at [employer] [facility] [place] to be checked. 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 Took Bactrim this AM. Chews tobacco. I, Dr. Avina, personally performed the services described in this documentation as scribed in my presence and it is both accurate and complete. - History of Current Complaint Chief Complaint: [facility] Time Seen by Provider: 10/06/17 13:57 Stated Complaint: BUG BITE LEG Hx Obtained From: Patient Onset/Duration: Gradual Onset, Lasting Days, Still Present Timing: Constant Onset Severity: Mild Current Severity: Mild Pain Intensity: 2 Pain Scale Used: 0-10 Numeric Location: Other - LLE Character: Pain, Redness Associated Signs & Symptoms: Negative: Shivering - shakes, Fever, Chills - Allergy/Home Medications Allergies/Adverse Reactions: Allergies Allergy/AdvReac Type Severity Reaction Status Date / Time acetaminophen [From Tylenol] Allergy Severe Hives Verified 09/02/17 17:51 Home Medications: Home Medications Buprenorphine HCl/Naloxone HCl [Suboxone 12 mg-3 mg Sl Film] 12 mg PO DAILY [History Confirmed 10/06/17] Review of Systems Constitutional: Other - neg: shaking, fever, chills Skin: Other - LLE pain and redness All Other Systems Reviewed And Are Negative: Yes PMH/Surg Hx/FS Hx/Imm Hx Previously Healthy: No - pos: back pain Endocrine History: Diabetes - Surgical History Surgical History: Yes Surgery Procedure, Year, and Place: Abcess I+D bilateral AC's. Pleuracentesis - Family History Known Family History: Positive: Hypertension, Diabetes, Other - neg: MRSA - Social History Occupation: Employed Part-time Lives: Alone Alcohol Use: None Alcohol Amount: pt denies alcohol use Substance Use Type: None Substance Use Comment - Amount & Last Used: SUBOXONE, relapsed on 07/10/17 Smoking Status (MU): Never Smoked Tobacco Type: Smokeless Tobacco Amount Used/How Often: 1 can/ day Have You Smoked in the Last Year: No - Immunization History Most Recent Influenza Vaccination: 2008 Most Recent Tetanus Shot: unk Most Recent Pneumonia Vaccination: 2010, per pt Physical Exam - Summary Physical Exam Summary: Appearance: Well appearing, no pain distress. Skin: warm, dry, reflects adequate perfusion. There is a small open wound on the lateral aspect of mid L mckay with mild surrounding erythema. There is no induration, no palpable abscess. It is mildly purulent. Head/face: normal Eyes: EOMI, ESTER ENT: normal Neck: supple, non-tender Respiratory: CTA, breath sounds present Cardiovascular: RRR, pulses symmetrical Abdomen: non-tender, soft Bowel Sounds: present Musculoskeletal: normal, strength/ROM intact Neuro: normal, sensory motor intact, A&Ox3 Triage Information Reviewed: Yes Vital Signs: Initial Vital Signs Temp 99 F 10/06/17 13:57 Pulse 92 10/06/17 13:57 Resp 18 10/06/17 13:57 BP 163/96 10/06/17 13:57 Pulse Ox 98 10/06/17 13:57 Vital Signs Reviewed: Yes Course/Dx - Course Course Of Treatment: BP noted and advised to follow up with PCP. Patient with possible insect bite with small area of erythema in the left lateral lower leg. There is no significant induration. The area in the center is a little dark likely from him squeezing. Very minimal purulence from it. Cover with doxycycline. Wound was cleansed here with alcohol and dressed with Kerlix. He will follow up with his primary care physician. - Diagnoses Provider Diagnoses: 1. Left lower leg cellulitis. 2. HTN Discharge - Sign-Out/Discharge Documenting (check all that apply): Patient Departure - Discharge Plan Condition: Improved Disposition: HOME Prescriptions: DOXYcycline CAP(*) [DOXYcycline 100MG CAP(*)] 100 mg PO BID #20 cap Patient Education Materials: Cellulitis (ED) Forms: *Work Release Referrals: Manav Rocha DO [Doctor of Osteopathy] - Additional Instructions: Keep the area clean and dry. Wash with soap and water and a few times a day. Apply Neosporin or Bacitracin. Apply warm compresses. Your blood pressure was elevated during todays visit; please follow up with your primary care provider within a week for further evaluation. - Billing Disposition and Condition Condition: IMPROVED Disposition: Home
== END 2017-10-06 14:35 | disposition home or self-care (01) ==
LOC: UCEAST 13:39
DX: L03.116 Cellulitis of left lower limb (principal); I10 Essential (primary) hypertension; Z88.6 Allergy status to analgesic agent; Z82.49 Family history of ischemic heart disease and other diseases of the circulatory system; Z83.3 Family history of diabetes mellitus; F17.220 Nicotine dependence, chewing tobacco, uncomplicated
CPT/HCPCS: 99212; G0463

== ENCOUNTER 2017-10-31 21:44 | Emergency (ER) | payer MEDICARE, MEDICAID ==
--- NOTE | 2017-10-31 23:43 | ED ---
HPI Chest Pain - HPI Summary HPI Summary: This patient is a 27 year old M presenting to [facility] accompanied by family with a chief complaint of intermittent mid-sternal CP radiating to back, lasting one hour that began 2 days ago. The patient rates the pain 5/10 in severity. Symptoms aggravated by nothing. Symptoms alleviated by nothing. Pt reports having similar symptoms previously with anxiety. - History of Current Complaint Chief Complaint: EDChestPainROMI Time Seen by Provider: 10/31/17 23:32 Hx Obtained From: Patient Onset/Duration: Started Days Ago, Still Present Timing: Intermittent, Lasting Hours Initial Severity: Moderate Current Severity: Moderate Pain Intensity: 5 Pain Scale Used: 0-10 Numeric Chest Pain Location: Mid Sternal Chest Pain Radiates: Yes Chest Pain Radiates To:: Back Aggravating Factor(s): Nothing Alleviating Factor(s): Nothing - Additional Pertinent History Primary Care Physician: MISBAH - Allergy/Home Medications Allergies/Adverse Reactions: Allergies Allergy/AdvReac Type Severity Reaction Status Date / Time acetaminophen [From Tylenol] Allergy Severe Hives Verified 10/31/17 21:56 PMH/Surg Hx/FS Hx/Imm Hx Previously Healthy: No Endocrine/Hematology History: Reports: Hx Diabetes - Type II Denies: Hx Thyroid Disease Cardiovascular History: Denies: Hx Hypertension Respiratory History: Denies: Hx Asthma, Hx Chronic Obstructive Pulmonary Disease (COPD) GI History: Denies: Hx Ulcer Musculoskeletal History: Reports: Hx Back Problems Denies: Hx Scoliosis Neurological History: Denies: Hx Headaches, Other Neuro Impairments/Disorders Psychiatric History: Reports: Hx Substance Abuse - IV drug use - Surgical History Surgery Procedure, Year, and Place: Abcess I+D bilateral AC's. Pleuracentesis Infectious Disease History: No Infectious Disease History: Reports: Hx of Known/Suspected MRSA - Left AC, History Other Infectious Disease - MRSA Denies: Hx Hepatitis, Hx Human Immunodeficiency Virus (HIV), Traveled Outside the [place] in Last 30 Days - Family History Known Family History: Positive: Hypertension, Diabetes, Other - neg: MRSA - Social History Occupation: Disabled Lives: Alone Alcohol Use: None Alcohol Amount: pt denies alcohol use Hx Substance Use: Yes Substance Use Type: Reports: Prescribed Substance Use Comment - Amount & Last Used: SUBOXONE, relapsed on 07/10/17 Hx Tobacco Use: No Smoking Status (MU): Never Smoked Tobacco Type: Smokeless Tobacco Amount Used/How Often: 1 can/ day Have You Smoked in the Last Year: No Review of Systems Positive: Chest Pain Negative: Headache All Other Systems Reviewed And Are Negative: Yes Physical Exam - Summary Physical Exam Summary: VITAL SIGNS: Reviewed. GENERAL: Patient is a well-developed and morbidly obese male who is lying comfortable in the stretcher. Patient is not in any acute respiratory distress. HEAD AND FACE: No signs of trauma. No ecchymosis, hematomas or skull depressions. No sinus tenderness. EYES: PERRLA, EOMI x 2, No injected conjunctiva, no nystagmus. EARS: Hearing grossly intact. Ear canals and tympanic membranes are within normal limits. MOUTH: Oropharynx within normal limits. NECK: Supple, trachea is midline, no adenopathy, no JVD, no carotid bruit, no c- spine tenderness, neck with full ROM. CHEST: Symmetric, no tenderness at palpation LUNGS: Clear to auscultation bilaterally. No wheezing or crackles. CVS: Regular rate and rhythm, S1 and S2 present, no murmurs or gallops appreciated. ABDOMEN: Soft, non-tender. No signs of distention. No rebound no guarding, and no masses palpated. Bowel sounds are normal. EXTREMITIES: FROM in all major joints, no edema, no cyanosis or clubbing. NEURO: Alert and oriented x 3. No acute neurological deficits. Speech is normal and follows commands. SKIN: Dry and warm Triage Information Reviewed: Yes Vital Signs On Initial Exam: Initial Vitals Temp Pulse Resp BP Pulse Ox 100.0 F 82 20 151/83 98 10/31/17 21:53 10/31/17 21:53 10/31/17 21:53 10/31/17 21:53 10/31/17 21:53 Vital Signs Reviewed: Yes Diagnostics - Vital Signs Vital Signs Temp Pulse Resp BP Pulse Ox 10/31/17 21:53 100.0 F 82 20 151/83 98 - Laboratory Result Diagrams: 10/31/17 23:53 10/31/17 23:53 Lab Statement: Any lab studies that have been ordered have been reviewed, and results considered in the medical decision making process. - EKG 2147 Cardiac Rate: NL EKG Rhythm: Sinus Rhythm - 77 BPM EKG Interpretation: Nml axis. Nml interval. No ischemic changes. Chest Pain Course/Dx - Course Course Of Treatment: This patient is a 27 year old M presenting to [facility] accompanied by family with a chief complaint of intermittent mid-sternal CP radiating to back, lasting one hour that began 2 days ago. Physical Exam Findings: Morbidly obese. An EKG taken at 2147 reveals sinus rhythm at 77 BPM, nml axis, nml interval, and no ischemic changes. Blood work obtained. Patient will be and follow up from PCP. The patient is agreeable with this plan. - Diagnoses Provider Diagnoses: Atypical chest pain Discharge - Sign-Out/Discharge Documenting (check all that apply): Patient Departure - Discharge home - Discharge Plan Condition: Stable Disposition: HOME Patient Education Materials: Chest Pain (ED) Referrals: Manav Rocha DO [Primary Care Provider] - 2 Days Additional Instructions: RETURN TO THE EMERGENCY DEPARTMENT FOR NEW OR WORSENING SYMPTOMS - Attestation Statements Document Initiated by Scribe: Yes Documenting Scribe: Carmen Mendez Provider For Whom Scribe is Documenting (Include Credential): Altaf Chairez MD Scribe Attestation: Carmen Raza, scribed for Altaf Chairez MD on 11/01/17 at 0043.
[2017-11-01 00:29] LABS: EGFR Non-African American 115.2 (>60)
[2017-11-01 00:30] LABS: INR 0.91 (0.77-1.02)
[2017-11-01 00:33] LABS: ABS Basophils 0 10^3/ul (0-0.2); ABS Eosinophils 0.3 10^3/ul (0-0.6); ABS Lymphocytes 2.8 10^3/ul (1.0-4.8); ABS Monocytes 0.4 10^3/ul (0-0.8); ABS Neutrophils 3.1 10^3/ul (1.5-7.7); ABS Nucleated RBC 0 10^3/ul; Hematocrit 38 % (42-52); Hemoglobin 12.5 g/dl (14.0-18.0); Lymphocyte % 42.3 % (25-47); Mean Corpuscular HGB Conc 33 g/dl (31-36); Mean Corpuscular Hemoglobin 25 pg (27-31); Mean Corpuscular Volume 75 fL (80-94); Mean Platelet Volume 7.5 um3 (7.4-10.4); Nucleated Red Blood Cells % 0.2; Platelet Count 232 10^3/ul (150-450); Red Blood Count 5.03 10^6/ul (4.00-5.40); Red Cell Distribution Width 16 % (10.5-15); White Blood Count 6.6 10^3/ul (3.5-10.8)
[2017-11-01 01:04] VITALS: BP 138/83
== END 2017-11-01 01:03 | disposition home or self-care (01) ==
LOC: ED 21:44
DX: R07.89 Other chest pain (principal); Z88.6 Allergy status to analgesic agent; F17.220 Nicotine dependence, chewing tobacco, uncomplicated; I20.9 Angina pectoris, unspecified; R11.2 Nausea with vomiting, unspecified; R61 Generalized hyperhidrosis; E11.9 Type 2 diabetes mellitus without complications; Z79.84 Long term (current) use of oral hypoglycemic drugs
CPT/HCPCS: 36415; 80053; 82550; 82553; 83735; 84484; 85025; 85610; 85730; 93005; 99283

== ENCOUNTER 2017-11-11 11:20 | Emergency (ER) | payer MEDICARE, MEDICAID ==
[2017-11-11 11:42] VITALS: BP 125/71
--- NOTE | 2017-11-11 12:38 | UC ---
Abdominal Pain Male HPI - HPI Summary HPI Summary: 27-year-old male history of type 2 diabetes presents with onset of epigastric pain last night after eating pizza. He had some mild nausea at the onset of symptoms that has since resolved. Describes the pain as gnawing and having the need to belch but not able. States earlier today he also had a single episode of sharp left flank pain that lasted a few minutes as well as a single episode of loose stool. Denies fever, chills, chest pain, palpitations, shortness of breath, or vomiting. Patient did start Trulicity 3 days ago. - History of Current Complaint Chief Complaint: UCGeneralIllness Stated Complaint: L SIDE PAIN Time Seen by Provider: 11/11/17 12:10 Hx Obtained From: Patient Onset/Duration: Lasting Days - 2 Severity Initially: Moderate Severity Currently: Mild Pain Intensity: 0 Location: Epigastric Character: Other - See HPI Aggravating Factor(s): Deep Breaths Alleviating Factor(s): Nothing Associated Signs And Symptoms: Positive: Nausea. Negative: Fever, Chest Pain, Back Pain, Constipation, Blood in Stool, Urinary Symptoms, Decreased Appetite, Vomiting - Allergies/Home Medications Allergies/Adverse Reactions: Allergies Allergy/AdvReac Type Severity Reaction Status Date / Time acetaminophen [From Tylenol] Allergy Severe Hives Verified 11/11/17 11:33 Home Medications: Home Medications Dulaglutide [Trulicity] 0.75 mg SQ WEEKLY 11/11/17 [History Confirmed 11/11/17] PMH/Surg Hx/FS Hx/Imm Hx Endocrine History: Diabetes Other Psychological History: Substance abuse disorder - Surgical History Surgical History: Yes Surgery Procedure, Year, and Place: Abcess I+D. Pleuracentesis - Family History Known Family History: Positive: Hypertension, Diabetes - Social History Occupation: Disabled Lives: With Family Alcohol Use: None Alcohol Amount: pt denies alcohol use Substance Use Type: None Substance Use Comment - Amount & Last Used: SUBOXONE, relapsed on 07/10/17 Smoking Status (MU): Never Smoked Tobacco Type: Smokeless Tobacco Amount Used/How Often: 1 can/ day Have You Smoked in the Last Year: No - Immunization History Most Recent Influenza Vaccination: 2008 Most Recent Tetanus Shot: unk Most Recent Pneumonia Vaccination: 2010, per pt Review of Systems Constitutional: Negative Respiratory: Negative Cardiovascular: Negative Gastrointestinal: Abdominal Pain, Nausea Genitourinary: Negative Is Patient Immunocompromised?: No All Other Systems Reviewed And Are Negative: Yes Physical Exam Triage Information Reviewed: Yes Appearance: Well-Appearing, No Pain Distress, Obese Vital Signs: Initial Vital Signs Temp 97.6 F 11/11/17 11:36 Pulse 101 11/11/17 11:36 Resp 20 11/11/17 11:36 BP 125/71 11/11/17 11:36 Pulse Ox 97 11/11/17 11:36 Vital Signs Reviewed: Yes Respiratory: Positive: Lungs clear, Normal breath sounds, No respiratory distress Cardiovascular: Positive: RRR, No Murmur Abdomen Description: Positive: No Organomegaly, Soft, Other: - Mild epigastric tenderness. Negative: CVA Tenderness (R), CVA Tenderness (L), Distended, Guarding Bowel Sounds: Positive: Present Neurological: Positive: Alert Skin Exam: Normal Diagnostics - Laboratory Diagnostic Studies Completed/Ordered: UA trace protein otherwise within normal limits Abd Pain Male Course/Dx - Course Course Of Treatment: 27 year old male with onset of epigastric pain after eating pizza. His history is supicious for biliary colic however cannot rule out GERD or PUD. The report of flank pain and a normal UA makes renal colic unlikely. Since VSS are stable and exam revealed a non-surgical abdomen discussed with patient having an urgent evaluation in the ED vs outpatient work up with PCP. Patient elects to pursue an outpatient evaluation. Will start him on a PPI to see if this improves symptoms making PUD vs GERD more likely. Warning symptoms requiring immediate medical attention were discussed. Patient verbalizes understanding and agrees with POC. - Differential Dx/Clinical Impression Differential Diagnosis/HQI/PQRI: Gall Bladder Disease, Pancreatitis, Peptic Ulcer Disease, Renal Colic, Ureteral Stone, Other - Medication reaction Provider Diagnoses: Acute epigastric pain Discharge - Sign-Out/Discharge Documenting (check all that apply): Patient Departure All imaging exams completed and their final reports reviewed: No Studies - Discharge Plan Condition: Stable Disposition: HOME Prescriptions: Omeprazole 20 mg PO DAILY #30 capsule. Patient Education Materials: Epigastric Pain (ED) Referrals: Manav Rocha DO [Primary Care Provider] - 7 Days Additional Instructions: Start taking omeprazole 1 capsule daily. Avoid eating greasy or fatty foods as this may provoke her symptoms. Follow-up with your primary care provider within the next 7 days. Seek immediate medical attention the emergency room if he develops fever greater than 100.5 F, have worsening abdominal pain, persistent vomiting, or any worsening of symptoms. - Billing Disposition and Condition Condition: STABLE Disposition: Home - Attestation Statements Provider Attestation: I was available for consult. This patient was seen by the [facility]GR[facility]. The patient was not presented to, seen by, or examined by me. -Mau
== END 2017-11-11 12:40 | disposition home or self-care (01) ==
LOC: UCEAST 11:20
DX: R10.13 Epigastric pain (principal); E11.9 Type 2 diabetes mellitus without complications; Z87.891 Personal history of nicotine dependence; Z88.5 Allergy status to narcotic agent
CPT/HCPCS: 81003; 99212; G0463

== ENCOUNTER 2018-01-17 16:05 | Emergency (ER) | payer MEDICARE, MEDICAID ==
[2018-01-17 16:31] VITALS: BP 139/83
[2018-01-17] MEDS ORDERED: Amoxicillin/Clavulanate TAB* 875 MG PO ONE (16:38)
--- NOTE | 2018-01-17 16:41 | UC ---
Throat Pain/Nasal Pratik HPI - HPI Summary HPI Summary: 27 yo male presents with tongue pain and swelling and "swollen glands". He tells me that about a month ago he got a tongue ring placed and was doing well until 2 days ago when he noticed increased pain and swelling of his tongue. His pain and swelling worsened yesterday so he removed the piercing. This morning noticed some clear/yellow tinged drainage from his tongue at the piercing site and felt that his glands were swollen. He is able to eat and drink, but does have pain. Denies fever, chills, SOB, rash. - History of Current Complaint Chief Complaint: UCRespiratory Stated Complaint: SWOLLEN TONGUE, AND SORE THROAT Time Seen by Provider: 01/17/18 16:38 Hx Obtained From: Patient Onset/Duration: Gradual Onset Severity: Mild Pain Intensity: 4 Pain Scale Used: 0-10 Numeric - Allergies/Home Medications Allergies/Adverse Reactions: Allergies Allergy/AdvReac Type Severity Reaction Status Date / Time acetaminophen [From Tylenol] Allergy Severe Hives Verified 11/11/17 11:33 PMH/Surg Hx/FS Hx/Imm Hx Endocrine History: Diabetes Cardiovascular History: Hypertension Other History Of: Hepatitis C - Surgical History Surgical History: Yes Surgery Procedure, Year, and Place: Abcess I+D. Pleuracentesis - Family History Known Family History: Positive: Hypertension, Diabetes, Other - neg: MRSA - Social History Lives: With Family Alcohol Use: None Alcohol Amount: pt denies alcohol use Substance Use Type: Prescribed Substance Use Comment - Amount & Last Used: SUBOXONE, relapsed on 07/10/17 Smoking Status (MU): Never Smoked Tobacco Type: Smokeless Tobacco Amount Used/How Often: 1 can/ day Have You Smoked in the Last Year: No - Immunization History Most Recent Influenza Vaccination: 2008 Most Recent Tetanus Shot: unk Most Recent Pneumonia Vaccination: 2010, per pt Review of Systems All Other Systems Reviewed And Are Negative: Yes Constitutional: Positive: Negative Skin: Positive: Negative Eyes: Positive: Negative ENT: Positive: Other - Tongue pain/swelling Respiratory: Positive: Negative Cardiovascular: Positive: Negative Neurovascular: Positive: Negative Neurological: Positive: Negative Psychological: Positive: Negative Physical Exam - Summary Physical Exam Summary: GENERAL: NAD. WDWN. No pain distress. SKIN: No rashes, sores, lesions, or open wounds. HEENT: Head: AT/NC Eyes: Conjunctiva clear without inflammation or discharge. Throat: Tongue with central piercing hole - moderate surrounding erythema and edema. Moderate TTP. No drainage able to be expressed. Posterior oropharynx without erythema. 2+ tonsillar enlargement. No exudates. Uvula midline. No hoarse voice or muffled voice. NECK: Supple. Nontender. No lymphadenopathy. CHEST: No accessory muscle use. Breathing comfortably and in no distress. CV: Pulses intact. Cap refill <2seconds NEURO: Alert. PSYCH: Age appropriate behavior. Triage Information Reviewed: Yes Vital Signs: Initial Vital Signs Temp 98.5 F 01/17/18 16:29 Pulse 92 01/17/18 16:29 Resp 18 01/17/18 16:29 BP 139/83 01/17/18 16:29 Pulse Ox 99 01/17/18 16:29 Vital Signs Reviewed: Yes Throat Pain/Nasal Course/Dx - Course Course Of Treatment: Given his hx of IV drug abuse and DM - will cover him with Augmentin and chlorhexidine mouth wash. Advised to keep piercing removed. - Differential Dx/Diagnosis Provider Diagnoses: Tongue piercing infection Discharge - Sign-Out/Discharge Documenting (check all that apply): Patient Departure All imaging exams completed and their final reports reviewed: No Studies - Discharge Plan Condition: Stable Disposition: HOME Prescriptions: Amoxicillin/Clavulanate TAB* [Augmentin TAB 875*] 875 mg PO BID #14 tab Chlorhexidine MW 0.12% 473ML* [Peridex Mouth Wash 0.12%] 15 ml SWISH SPIT BID # 1 btl Patient Education Materials: Pierced Earlobe Infection (ED) Referrals: Manav Rocha DO [Primary Care Provider] - Additional Instructions: If you develop a fever, shortness of breath, chest pain, new or worsening symptoms - please call your PCP or go to the ED. Your blood pressure was high at todays visit. Please see your primary provider within 4 weeks for recheck and re-evaluation. 1) Please keep the tongue piercing out until your infection is well healed - Billing Disposition and Condition Condition: STABLE Disposition: Home
== END 2018-01-17 16:49 | disposition home or self-care (01) ==
LOC: UCEAST 16:05
DX: K14.0 Glossitis (principal); Z88.6 Allergy status to analgesic agent; F17.220 Nicotine dependence, chewing tobacco, uncomplicated
CPT/HCPCS: 99212; A9270-GY; G0463

== ENCOUNTER 2018-02-06 09:51 | Emergency (ER) | payer MEDICARE, MEDICAID ==
[2018-02-06 10:16] VITALS: BP 135/80
--- NOTE | 2018-02-06 10:39 | UC ---
Throat Pain/Nasal Pratik HPI - HPI Summary HPI Summary: 27 y/o male presents to the urgent care c/o sore throat for the past 2 days. Pain w/ swallowing is 8/101. he has taken Motrin and Dayquill PO last night to alleviate symptoms. Pt states his HR is usually elevated, but his PCP told him his BP is always normal. pt denies fever, SOB, chest pain, abdominal pain, N/V/D , cough, MCFADDEN or dizziness. - History of Current Complaint Chief Complaint: UCGeneralIllness Stated Complaint: SORE THROAT Time Seen by Provider: 02/06/18 10:18 Hx Obtained From: Patient Onset/Duration: Gradual Onset, Lasting Days - 2 days, Still Present, Worse Since - today Severity: Moderate Pain Intensity: 5 Pain Scale Used: 0-10 Numeric Cough: None Associated Signs & Symptoms: Positive: Dysphagia. Negative: Wheezing, Sinus Discomfort, Nasal Discharge, Fever, Vomiting, Rash, Other - Epiglottits Risk Factors Epiglottis Risk Factors: Negative - Allergies/Home Medications Allergies/Adverse Reactions: Allergies Allergy/AdvReac Type Severity Reaction Status Date / Time acetaminophen [From Tylenol] Allergy Severe Hives Verified 02/06/18 10:16 PMH/Surg Hx/FS Hx/Imm Hx Previously Healthy: Yes Endocrine History: Diabetes GI/ History: Gastroesophageal Reflux Other History Of: Hepatitis C - Surgical History Surgical History: Yes Surgery Procedure, Year, and Place: Abcess I+D. Pleuracentesis - Family History Known Family History: Positive: Hypertension, Diabetes, Other - neg: MRSA - Social History Occupation: Employed Full-time Lives: With Family Alcohol Use: None Alcohol Amount: pt denies alcohol use Substance Use Type: Prescribed Substance Use Comment - Amount & Last Used: SUBOXONE, relapsed on 07/10/17 Smoking Status (MU): Never Smoked Tobacco Type: Smokeless Tobacco Amount Used/How Often: 1 can/ day Have You Smoked in the Last Year: No - Immunization History Most Recent Influenza Vaccination: 2008 Most Recent Tetanus Shot: unk Most Recent Pneumonia Vaccination: 2010, per pt Review of Systems All Other Systems Reviewed And Are Negative: Yes Constitutional: Positive: Chills, Fatigue, Other - decrease appetite Skin: Positive: Negative Eyes: Positive: Negative ENT: Positive: Sore Throat Respiratory: Positive: Negative Cardiovascular: Positive: Negative Gastrointestinal: Positive: Negative Genitourinary: Positive: Negative Motor: Positive: Negative Neurovascular: Positive: Negative Musculoskeletal: Positive: Negative Neurological: Positive: Negative Psychological: Positive: Negative Is Patient Immunocompromised?: No Physical Exam - Summary Physical Exam Summary: VITAL SIGNS: Reviewed. GENERAL: Patient is a well developed and nourished obese male who is sitting comfortable in the examining table. Patient is not in any acute respiratory distress. HEAD AND FACE: No signs of trauma. No ecchymosis, hematomas or skull depressions. No sinus tenderness. EYES: PERRLA, EOMI x 2, No injected conjunctiva, no nystagmus. No photophobia. EARS: Hearing grossly intact. Ear canals and tympanic membranes are within normal limits. MOUTH: Positive pharynx with erythema, exudates, palatal petechiae. B/L tonsillar enlargement with exudate. Uvula in midline. NECK: Supple, trachea is midline, Positive anterior cervical lymphadenopathy, no JVD, no carotid bruit, no c-spine tenderness, neck with full ROM. No meningeal signs, no Kernig's or brudzinskis signs. CHEST: Symmetric, no tenderness at palpation LUNGS: Clear to auscultation bilaterally. No wheezing or crackles. CVS: Regular rate and rhythm, S1 and S2 present, no murmurs or gallops appreciated. ABDOMEN: Soft, non-tender. No signs of distention. No rebound no guarding, and no masses palpated. Bowel sounds are normal. EXTREMITIES: FROM in all major joints, no edema, no cyanosis or clubbing. NEURO: Alert and oriented x 3. No acute neurological deficits. Speech is normal and follows commands. SKIN: Dry and warm Triage Information Reviewed: Yes Vital Signs: Initial Vital Signs Temp 98.2 F 02/06/18 10:13 Pulse 116 02/06/18 10:13 Resp 15 02/06/18 10:13 BP 135/80 02/06/18 10:13 Pulse Ox 99 02/06/18 10:13 Throat Pain/Nasal Course/Dx - Course Course Of Treatment: 27 y/o male presents to the urgent care c/o sore throat for the past 2 days. Pain w/ swallowing is 8/101. he has taken Motrin and Dayquill PO last night to alleviate symptoms. Pt states his HR is usually elevated, but his PCP told him his BP is always normal. pt denies fever, SOB, chest pain, abdominal pain, N/V/D, cough, MCFADDEN or dizziness. Hx obtained. Pt w/ pharyngitis on examination.Rapid strep ordered: result: positive. Strep pharyngitis. Rx Amoxicillin PO and Ibuprofen PO for pain and swelling. PT Advised on hand washing to avoid spreading. Also advised to rest, eat well and avoid strenuous exercise. If symptoms do not improve or worsen advised to return to the urgent care or f/u with her PCP for further evaluation and treatment. Pt also advised to f/u w/ his PCP for further work up in his HR since he has Hx of anxiety. PT understood and agreed w/ plan of care. - Differential Dx/Diagnosis Differential Diagnosis/HQI/PQRI: Laryngitis, Mononucleosis, Pharyngitis, Sinusitis, Tonsillitis, URI Provider Diagnosis: Strep pharyngitis Discharge - Sign-Out/Discharge Documenting (check all that apply): Patient Departure - D/C home All imaging exams completed and their final reports reviewed: No Studies - Discharge Plan Condition: Stable Disposition: HOME Prescriptions: Amoxicillin PO (*) [Amoxicillin 500 MG CAP*] 500 mg PO Q12H #20 cap Ibuprofen TAB* [Motrin TAB* 800 MG] 800 mg PO Q6H PRN #30 tab PRN Reason: Pain Patient Education Materials: Strep Throat (ED) Forms: *Work Release Referrals: Manav Rocha DO [Primary Care Provider] - 3 Days Additional Instructions: 1- Please take the full course of the antibiotic to avoid resistance. 2-Please take ibuprofen PO q6-8hrs prn as instructed after meals to alleviate pain and swelling. Increase fluid intake, eat well, rest and avoid strenuous exercise 3-If symptoms do not improve or worsen please return to the urgent care or f/u with your PCP in 3 days for further evaluation and treatment. - Billing Disposition and Condition Condition: STABLE Disposition: Home
== END 2018-02-06 10:50 | disposition home or self-care (01) ==
LOC: UCEAST 09:51
DX: J02.0 Streptococcal pharyngitis (principal); B95.0 Streptococcus, group A, as the cause of diseases classified elsewhere; E11.9 Type 2 diabetes mellitus without complications; F17.220 Nicotine dependence, chewing tobacco, uncomplicated
CPT/HCPCS: 87651; 99212; G0463

== ENCOUNTER 2018-03-01 18:10 | Emergency (ER) | payer MEDICARE, MEDICAID ==
[2018-03-01 18:25] VITALS: BP 133/83
[2018-03-01] MEDS ORDERED: Amoxicillin/Clavulanate TAB* 875 MG PO ONE (18:56)
--- NOTE | 2018-03-01 19:08 | UC ---
Throat Pain/Nasal Pratik HPI - HPI Summary HPI Summary: ONSET THIS MORNING OF ST AND PAIN WITH SWALLOWING. HAS LOW GRADE TEMP. HAD POSITIVE STREP TEST 3 WEEKS AGO AND WAS TX WITH AMOX 500MG BID X 10 DAYS. PT STATES HE WAS A BIT LATE FOR SOME OF HIS DOSES BUT TOOK THE FULL 10 DAYS AND FELT COMPLETELY RECOVERED UNTIL TODAY. DOES NOT HAVE A H/O RECURRENT STREP. - History of Current Complaint Chief Complaint: UCGeneralIllness Stated Complaint: SORE THROAT Time Seen by Provider: 03/01/18 18:29 Hx Obtained From: Patient Onset/Duration: Gradual Onset, Lasting Hours, Still Present Severity: Moderate Pain Intensity: 2 Pain Scale Used: 0-10 Numeric Cough: None Associated Signs & Symptoms: Positive: Fever - Allergies/Home Medications Allergies/Adverse Reactions: Allergies Allergy/AdvReac Type Severity Reaction Status Date / Time acetaminophen [From Tylenol] Allergy Severe Hives Verified 03/01/18 18:27 PMH/Surg Hx/FS Hx/Imm Hx Endocrine History: Diabetes Other History Of: Hepatitis C - Surgical History Surgical History: Yes Surgery Procedure, Year, and Place: Abcess I+D. Pleuracentesis - Family History Known Family History: Positive: Hypertension, Diabetes, Other - neg: MRSA - Social History Alcohol Use: None Alcohol Amount: pt denies alcohol use Substance Use Type: Prescribed Substance Use Comment - Amount & Last Used: SUBOXONE, relapsed on 07/10/17 Smoking Status (MU): Never Smoked Tobacco Type: Smokeless Tobacco Amount Used/How Often: 1 can/ day Have You Smoked in the Last Year: No - Immunization History Most Recent Influenza Vaccination: 2008 Most Recent Tetanus Shot: unk Most Recent Pneumonia Vaccination: 2010, per pt Review of Systems All Other Systems Reviewed And Are Negative: Yes Constitutional: Positive: Fever ENT: Positive: Sore Throat Respiratory: Positive: Negative Cardiovascular: Positive: Negative Gastrointestinal: Positive: Negative Physical Exam Triage Information Reviewed: Yes Appearance: Well-Appearing, No Pain Distress, Well-Nourished Vital Signs: Initial Vital Signs Temp 100.2 F 03/01/18 18:21 Pulse 116 03/01/18 18:21 Resp 16 03/01/18 18:21 BP 133/83 03/01/18 18:21 Pulse Ox 99 03/01/18 18:21 Laboratory Tests 03/01/18 18:39 Group A Strep Rapid Positive A Vital Signs Reviewed: Yes Eyes: Positive: Conjunctiva Clear ENT: Positive: Hearing grossly normal, Pharyngeal erythema, TMs normal, Tonsillar swelling, Tonsillar exudate, Muffled voice Neck: Positive: Supple, Nontender, No Lymphadenopathy Respiratory Exam: Normal Cardiovascular Exam: Normal Abdomen Description: Positive: Soft Musculoskeletal: Positive: No Edema Neurological: Positive: Alert Psychological: Positive: Age Appropriate Behavior Skin: Negative: Rashes Throat Pain/Nasal Course/Dx - Differential Dx/Diagnosis Provider Diagnosis: Strep pharyngitis Discharge - Sign-Out/Discharge Documenting (check all that apply): Patient Departure All imaging exams completed and their final reports reviewed: No Studies - Discharge Plan Condition: Stable Disposition: HOME Prescriptions: Amoxicillin/Clavulanate TAB* [Augmentin TAB 875*] 875 mg PO BID #19 tab Patient Education Materials: Strep Throat (ED) Referrals: Manav Rocha DO [Primary Care Provider] - If Needed Additional Instructions: YOUR STREP TEST WAS POSITIVE AGAIN TODAY. WE WILL TREAT YOU WITH A STRONGER ANTIBIOTIC THIS TIME. TAKE IT FOR THE FULL 10 DAYS. OTC CHLORASEPTIC OR CEPACOL LOZENGES AND/OR IBUPROFEN FOR SORE THROAT NEEDED ONCE SYMPTOMS RESOLVED - NEW TOOTHBRUSH DO NOT SHARE FOOD, DRINK, UTENSILS IF YOUR SYMPTOMS RETURN AGAIN THIS SEASON CONSIDER EVALUATION BY ENT. [facility] IN [place] [address] [facility] [phone] - Billing Disposition and Condition Condition: STABLE Disposition: Home
== END 2018-03-01 19:10 | disposition home or self-care (01) ==
LOC: UCEAST 18:10
DX: J02.0 Streptococcal pharyngitis (principal); Z88.6 Allergy status to analgesic agent; E11.9 Type 2 diabetes mellitus without complications
CPT/HCPCS: 87651; 99212; A9270-GY; G0463

== ENCOUNTER 2018-04-15 11:21 | Emergency (ER) | payer MEDICARE, MEDICAID ==
[2018-04-15 11:54] VITALS: BP 148/79
--- NOTE | 2018-04-15 12:15 | UC ---
UC General HPI - HPI Summary HPI Summary: Pt presents with enlarged areas of bilateral inner thighs. Pt noticed them last night. Also, pt c/o reddened tender area on right LE lateral mid shaft. - History of Current Complaint Chief Complaint: UCSkin Stated Complaint: SWOLLEN GLANDS ON INNER THIGHS Time Seen by Provider: 04/15/18 12:07 Hx Obtained From: Patient Onset/Duration: Sudden Onset, Gradual Onset Timing: Constant Onset Severity: Mild Current Severity: Mild Pain Intensity: 0 Associated Signs & Symptoms: Positive: Cough Related Hx: Recent Illness - Allergy/Home Medications Allergies/Adverse Reactions: Allergies Allergy/AdvReac Type Severity Reaction Status Date / Time acetaminophen [From Tylenol] Allergy Severe Hives Verified 04/15/18 11:54 Home Medications: Home Medications Omeprazole 40 mg PO DAILY 04/15/18 [History Confirmed 04/15/18] PMH/Surg Hx/FS Hx/Imm Hx Previously Healthy: Yes Other History Of: Hepatitis C - Surgical History Surgical History: Yes Surgery Procedure, Year, and Place: Abcess I+D. Pleuracentesis - Family History Known Family History: Positive: Hypertension, Diabetes, Other - neg: MRSA - Social History Occupation: Employed Full-time Lives: With Family Alcohol Use: None Alcohol Amount: pt denies alcohol use Substance Use Type: Prescribed Substance Use Comment - Amount & Last Used: SUBOXONE, relapsed on 07/10/17 Smoking Status (MU): Never Smoked Tobacco Type: Smokeless Tobacco Amount Used/How Often: 1 can/ day Have You Smoked in the Last Year: No - Immunization History Most Recent Influenza Vaccination: 2008 Most Recent Tetanus Shot: unk Most Recent Pneumonia Vaccination: 2010, per pt Review of Systems All Other Systems Reviewed And Are Negative: Yes Constitutional: Positive: Negative Skin: Positive: Negative Eyes: Positive: Negative ENT: Positive: Negative Respiratory: Positive: Negative Cardiovascular: Positive: Negative Gastrointestinal: Positive: Negative Genitourinary: Positive: Negative Motor: Positive: Negative Neurovascular: Positive: Negative Musculoskeletal: Positive: Negative Neurological: Positive: Negative Psychological: Positive: Negative Is Patient Immunocompromised?: No Physical Exam Triage Information Reviewed: Yes Appearance: Well-Appearing Vital Signs: Initial Vital Signs Temp 98 F 04/15/18 11:51 Pulse 77 04/15/18 11:51 Resp 17 04/15/18 11:51 BP 148/79 04/15/18 11:51 Pulse Ox 99 04/15/18 11:51 Vital Signs Reviewed: Yes Eye Exam: Normal ENT Exam: Normal Dental Exam: Normal Neck exam: Normal Respiratory Exam: Normal Cardiovascular Exam: Normal Musculoskeletal Exam: Normal, Other - no lymphadenopathy palpable, no masses appreciate on either inner thig Pt is obese and appears to be folds of skins and possibly cahgne in leg shape associated to obesity. Neurological Exam: Normal Psychological Exam: Normal Skin Exam: Other - right lateral LE mid shaft circular erythematous area ~ 3 cm in diameter Course/Dx - Diagnoses Provider Diagnosis: Cellulitis Discharge - Sign-Out/Discharge Documenting (check all that apply): Patient Departure All imaging exams completed and their final reports reviewed: No Studies - Discharge Plan Condition: Stable Disposition: HOME Prescriptions: Cephalexin CAP* [Keflex 500 CAP*] 500 mg PO Q8H #21 cap Patient Education Materials: Cellulitis (ED), Lymphedema (ED) Referrals: Manav Rocha DO [Primary Care Provider] - 04/28/18 Additional Instructions: PLEASE KEEP YOUR APPOINTMENT SCHEDULE FOR April. - Billing Disposition and Condition Condition: STABLE Disposition: Home
== END 2018-04-15 12:31 | disposition home or self-care (01) ==
LOC: UCEAST 11:21
DX: L03.115 Cellulitis of right lower limb (principal); R05 Cough; Z88.8 Allergy status to other drugs, medicaments and biological substances
CPT/HCPCS: 99211; 99212; G0463

== ENCOUNTER 2018-09-14 13:01 | Emergency (ER) | payer MEDICARE, MEDICAID ==
[2018-09-14 13:14] VITALS: BP 124/86
--- NOTE | 2018-09-14 13:47 | UC ---
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 WOrked for several hours, noted numbness after completing. No decrease in strength, no injury, trauma. No prior occurence of forearm numbness. R hand h/o ? CP- wakes at night with feeling of hand being swollen with numbness, tingling of fingers 1-3 x several months, worsening over time. Presents today with similar symptoms as before. no work up in past. Denies chest pain, GI symptoms, lightheadedness, dizziness. NO other symptoms. no h/o neck trauma. - History of Current Complaint Chief Complaint: UCUpperExtremity Stated Complaint: ARM NUMB Time Seen by Provider: 09/14/18 13:25 Hx Obtained From: Patient ?: No Onset/Duration: Sudden Onset, Lasting Minutes Severity Initially: Moderate Severity Currently: Moderate Pain Intensity: 18 - patient comfortable in room, no complaints Pain Scale Used: 0-10 Numeric Location Of Pain: Is Discrete @ - left forearm Character: Unable to Describe - numbness Alleviating Factor(s): Nothing Associated Signs And Symptoms: Positive: Numbness/Tingling Related History: Similar Episode/Dx As - R hand with numbness/ tingling multiple times before - Allergies/Home Medications Allergies/Adverse Reactions: Allergies Allergy/AdvReac Type Severity Reaction Status Date / Time acetaminophen [From Tylenol] Allergy Severe Hives Verified 09/14/18 13:15 PMH/Surg Hx/FS Hx/Imm Hx Previously Healthy: No Other History Of: Hepatitis C - Surgical History Surgical History: Yes Surgery Procedure, Year, and Place: Abcess I+D. Pleuracentesis - Family History Known Family History: Positive: Hypertension, Diabetes, Other - neg: MRSA - Social History Alcohol Use: None Alcohol Amount: pt denies alcohol use Substance Use Type: Prescribed Substance Use Comment - Amount & Last Used: SUBOXONE Smoking Status (MU): Heavy Every Day Tobacco Smoker Type: Smokeless Tobacco Amount Used/How Often: 1 can/ day Have You Smoked in the Last Year: No - Immunization History Most Recent Influenza Vaccination: 2008 Most Recent Tetanus Shot: unk Most Recent Pneumonia Vaccination: 2010, per pt Review of Systems All Other Systems Reviewed And Are Negative: Yes Constitutional: Positive: Negative Musculoskeletal: Positive: Edema Neurological: Positive: Paresthesia, Numbness Is Patient Immunocompromised?: No Physical Exam Triage Information Reviewed: Yes Appearance: Well-Appearing, No Pain Distress, Well-Nourished Vital Signs: Initial Vital Signs Temp 98.4 F 09/14/18 13:11 Pulse 88 09/14/18 13:11 Resp 18 09/14/18 13:11 BP 124/86 09/14/18 13:11 Pulse Ox 98 09/14/18 13:11 Vital Signs Reviewed: Yes Eyes: Positive: Conjunctiva Clear ENT: Positive: Normal ENT inspection Neck: Positive: Supple, No Lymphadenopathy, Tenderness @ - paraspinal on right side, + spurling with pressure on extension on right.. 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 rad/ unlar pulses 2+ b/l, cap refill < 2 secs.. Negative: Strength Limited @, ROM Limited @, Edema @ Neurological: Positive: Alert, Muscle Tone Normal, Other: - decreased sensation to light touch over R T1 dermatone, fingers 1-3 on right hand. full sensation throughout rest of fingers, forearm. Psychological Exam: Normal Skin Exam: Normal Upper Extremity Course/Dx - Course Course Of Treatment: Radiograph- neg for fx. Cervical Strain presenting with radiculopathy in T1 dermatone. - Naproxen every 12 hours x 5-7 days as tolerated - Rest, ice area - iF no improvement or worsening, weakness, develop go to ER for further work up - WOrk note given - - Differential Dx/Diagnosis Differential Diagnosis/HQI/PQRI: Bursitis, Laceration, Strain, Sprain Provider Diagnosis: Radiculopathy Discharge - Sign-Out/Discharge Documenting (check all that apply): Patient Departure All imaging exams completed and their final reports reviewed: Yes - Discharge Plan Condition: Good Disposition: HOME Prescriptions: Naproxen [Naproxen 250 mg tab] 250 mg PO BID #60 tablet Patient Education Materials: Cervical Radiculopathy (ED), Acute Neck Pain (ED) Forms: *Work Release Referrals: Avis Pelaez MD [Primary Care Provider] - Rachel Watters MD [Medical Doctor] - 2 Weeks (FOr carpal TUnnel ) Austyn Menjivar MD [Medical Doctor] - 1 Week (For neck pain ) Additional Instructions: Carpal Tunnel- - FOllow up with orthopedics within 1-2 weeks for treatment. Rest, wrist splint at night to help with symptoms. - Ice, elevate, rest when possible Cervical Strain presenting with radiculopathy in T1 dermatone. - Naproxen every 12 hours x 5-7 days as tolerated - Rest, ice area - iF no improvement or worsening, weakness, develop go to ER for further work up - WOrk note given - Billing Disposition and Condition Condition: GOOD Disposition: Home
== END 2018-09-14 14:31 | disposition home or self-care (01) ==
LOC: UCEAST 13:01
DX: M54.14 Radiculopathy, thoracic region (principal); F17.210 Nicotine dependence, cigarettes, uncomplicated
CPT/HCPCS: 72050; 99213; G0463

== ENCOUNTER 2019-02-16 21:15 | Emergency (ER) | payer MEDICARE, MEDICAID ==
[2019-02-16 21:31] VITALS: BP 135/89
--- NOTE | 2019-02-16 21:39 | UC ---
Skin Complaint HPI - HPI Summary HPI Summary: 28yo diabetic with onset of leg blisters today. He states that he has been treated for bilateral leg infection conservatively over the past month, cleansing the areas, particularly an open wound on the left lateral calf. Slept most of yesterday because he felt unwell. Today he because aware of blisters on the legs, but he has ertyhema and induration extending for the ankle almost the knee, with several open areas of drainage with a foul smell. He has pain at rest and with walking. Denies fever, chills, or increse above his baseline blood sugars. Denies any hx of DVT. 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 - History of Current Complaint Chief Complaint: UCLowerExtremity Time Seen by Provider: 02/16/19 21:32 Stated Complaint: BLISTERS ON LEGS,DIABETIC Hx Obtained From: Patient Onset/Duration: Sudden Onset, Lasting Days Timing: Constant Onset Severity: Moderate Current Severity: Severe Pain Intensity: 8 Location: Discrete - right lower extremity. Aggravating Factor(s): Touch Alleviating Factor(s): Nothing Associated Signs & Symptoms: Positive: Drainage, Red Streaks Related History: Trauma - none specific, but states that he scrapes his legs a lot outdoors. - Allergy/Home Medications Allergies/Adverse Reactions: Allergies Allergy/AdvReac Type Severity Reaction Status Date / Time acetaminophen [From Tylenol] Allergy Severe Hives Verified 02/16/19 21:31 PMH/Surg Hx/FS Hx/Imm Hx - Additional Past Medical History Additional PMH: obesity. Endocrine History: Diabetes Other History Of: Hepatitis C - Surgical History Surgical History: Yes Surgery Procedure, Year, and Place: Abcess I+D. Pleuracentesis - Family History Known Family History: Positive: Hypertension, Diabetes, Other - neg: MRSA - Social History Occupation: Unemployed Alcohol Use: None Alcohol Amount: pt denies alcohol use Substance Use Type: Prescribed Substance Use Comment - Amount & Last Used: SUBOXONE Smoking Status (MU): Heavy Every Day Tobacco Smoker Type: Smokeless Tobacco Amount Used/How Often: 1 can/ day Have You Smoked in the Last Year: No - Immunization History Most Recent Influenza Vaccination: 2008 Most Recent Tetanus Shot: unk Most Recent Pneumonia Vaccination: 2010, per pt Review of Systems All Other Systems Reviewed And Are Negative: Yes Constitutional: Positive: Fatigue Skin: Positive: Rash Eyes: Positive: Negative ENT: Positive: Negative Respiratory: Positive: Negative Motor: Positive: Negative Neurovascular: Positive: Negative Musculoskeletal: Positive: Calf Tenderness, Edema Neurological: Positive: Negative Psychological: Positive: Negative Is Patient Immunocompromised?: No - possibly Physical Exam Triage Information Reviewed: Yes Appearance: Ill-Appearing, Pain Distress - moderate. Vital Signs: Initial Vital Signs Temp 96.7 F 02/16/19 21:21 Pulse 132 02/16/19 21:21 Resp 18 02/16/19 21:21 BP 135/89 02/16/19 21:21 Pulse Ox 97 02/16/19 21:21 Eye Exam: Normal ENT: Positive: Pharynx normal, TMs normal Respiratory: Positive: Lungs clear, Normal breath sounds Cardiovascular: Positive: No Murmur, Tachycardia Abdomen Description: Positive: Nontender, No Organomegaly Musculoskeletal: Positive: ROM Intact Neurological: Positive: Alert, Muscle Tone Normal Skin Exam: Other - Tense indurated swelling of the right foreleg from ankle to knee with 3 areas of large blisters, which, with verbal consent, were opened with an 18 gauge needle and drained straw colored fluid. Anterior leg with area of shallow pocket of pus. + tenderness in calf, negative Barry's. Skin: Positive: Other - LEFT leg also has a crusted open wound lateral calf. Course/Dx - Course Course Of Treatment: Advised that the extent of this infection warranted emergency room evaluation with labs and likely need for iv antibiotics. Aditionally, the level of swelling and induration suggest possible DVT. ER transfer refused. I advised that I would treat to the best of my ability here, but that he is in need of snf management of his infection and wounds Advised that leg be reassessed tomorrow, and my advice would be in the emergency room. IM ceftriaxone given. - Differential Diagnoses - Skin Complaint Differential Diagnoses: Cellulitis, Other - dvt - Diagnoses Provider Diagnosis: Cellulitis of right leg Discharge ED - Sign-Out/Discharge Documenting (check all that apply): Patient Departure All imaging exams completed and their final reports reviewed: No Studies - Discharge Plan Condition: Stable Disposition: HOME Prescriptions: Amoxicillin/Clavulanate TAB* [Augmentin TAB 875*] 875 mg PO BID #20 tab Sulfamethox/Trimethoprim DS* [Bactrim DS 800/160 TAB*] 1 tab PO BID #20 tab Patient Education Materials: Cellulitis (ED) Referrals: Avis Pelaez MD [Primary Care Provider] - Additional Instructions: You have extensive cellulitis in the right leg, and there could be a clot in the leg. You have declined to go to the emergency room for further work up, so we are starting treatment here. Cultures have been obtained. Leg clots can break away and travel to the lung --this is called pulmonary embolus. You have had rocephin given in the muscle, and will begin oral treatment with bactrim and augmentin, take the first dose of bactrim tonight, and take BOTH oral antibiotcs tomorrow morning. Please have the wounds rechecked tomorrow. If the redness has improved, it is ok to come here for a recheck, but if the leg appears the same , I advise that you go to the emergency room. - Billing Disposition and Condition Condition: STABLE Disposition: Home
[2019-02-16] MEDS ORDERED: cefTRIAXone VIAL(*) 1,000 MG VIAL IM ONE (21:49)
[2019-02-16] MEDS ORDERED: Lidocaine 1% MPF ** 5 ML VIAL IM ONE (21:50)
[2019-02-16] MEDS ORDERED: Amoxicillin/Clavulanate TAB* 875 MG PO ONE (22:12)
[2019-02-16] MEDS ORDERED: Mupirocin 2% OINT* TUBE TOPICAL ONE (22:14)
[2019-02-16] MEDS ORDERED: Sulfamethox/Trimethoprim DS 800/160* TAB PO ONE (22:16)
== END 2019-02-16 22:55 | disposition home or self-care (01) ==
LOC: UCEAST 21:15
DX: L03.115 Cellulitis of right lower limb (principal); R53.83 Other fatigue; F17.290 Nicotine dependence, other tobacco product, uncomplicated; Z88.6 Allergy status to analgesic agent
CPT/HCPCS: 10060; 87070; 87205; 96372; 99213; A9270-GY; G0463; J0696

== ENCOUNTER 2019-02-17 07:40 | Inpatient (IN) | payer MEDICARE, MEDICAID ==
[2019-02-17 08:26] LABS: ABS Lymphocytes 1.2 10^3/ul (1.0-4.8); ABS Monocytes 0.7 10^3/ul (0-0.8); ABS Neutrophils 5.1 10^3/ul (1.5-7.7); Eosinophil % 0.3 %; Hematocrit 34 % (42-52); Hemoglobin 11.4 g/dL (14.0-18.0); Lymphocyte % 16.9 %; Mean Corpuscular HGB Conc 33 g/dL (31-36); Mean Corpuscular Hemoglobin 25 pg (27-31); Mean Corpuscular Volume 75 fL (80-94); Platelet Count 139 10^3/uL (150-450); Red Blood Count 4.55 10^6 /uL (4.18-5.48); Red Cell Distribution Width 15 % (10-15)
[2019-02-17] MEDS ORDERED: Clindamycin 600 MG/D5W BAG(*) 600 MG/50 ML BAG IV ONE (08:30)
--- NOTE | 2019-02-17 08:35 | ED ---
Skin Complaint - HPI Summary HPI Summary: This patient is a 28-year-old male with a history of type 2 diabetes, cellulitis and pneumonia presenting to the ED with bilateral lower extremity erythema, worse to the right side. He endorses RLE erythema, warmth, with open and closed blisters measuring from 1 cm up to 7 cm, some draining foul-smelling serous fluid. Symptoms have been present times approximately 2 days, however patient is unsure when symptoms began as he has been "sleeping for 2 days." He states he has not felt well for a few days, just with fatigue. Denies any nausea, vomiting, diarrhea. He states he had a temperature yesterday and was able to stop be seen at urgent care. He was encouraged to come to the ED at that time, however patient refused. He was subsequently given Augmentin and Bactrim for his cellulitis. He awoke this morning with a 103.1 temperature and erythema now extending past the knee and to the R medial thigh. - History of Current Complaint Chief Complaint: EDRashSkinAbscess Time Seen by Provider: 02/17/19 07:41 Stated Complaint: CELLULITIS PER EMS Hx Obtained From: Patient Onset/Duration: Started Hours Ago Skin Exposure Onset/Duration: Hours Ago Timing: Constant Onset Severity: Moderate Current Severity: Moderate Pain Intensity: 7 Pain Scale Used: 0-10 Numeric Skin Location: Discrete - RLE Aggravating Symptom(s): Nothing Alleviating Symptom(s): Nothing Associated Signs & Symptoms: Negative Related History: Trauma - Additional Pertinent History Primary Care Physician: [id number] - Allergy/Home Medications Allergies/Adverse Reactions: Allergies Allergy/AdvReac Type Severity Reaction Status Date / Time No Known Allergies Allergy Verified 02/17/19 07:51 Home Medications: Home Medications Naproxen [Naproxen 250 mg tab] 250 mg PO BID PRN 02/17/19 [History Confirmed ] PMH/Surg Hx/FS Hx/Imm Hx Previously Healthy: Yes Endocrine/Hematology History: Reports: Hx Diabetes - Type II po meds Denies: Hx Thyroid Disease Cardiovascular History: Denies: Hx Hypertension Respiratory History: Denies: Hx Asthma, Hx Chronic Obstructive Pulmonary Disease (COPD) GI History: Denies: Hx Ulcer Musculoskeletal History: Reports: Hx Back Problems Denies: Hx Scoliosis Neurological History: Denies: Hx Headaches, Other Neuro Impairments/Disorders Psychiatric History: Reports: Hx Substance Abuse - IV drug use - Surgical History Surgery Procedure, Year, and Place: Abcess I+D. Pleuracentesis - Immunization History Hx Pertussis Vaccination: No Immunizations Up to Date: Yes Infectious Disease History: No Infectious Disease History: Reports: Hx of Known/Suspected MRSA - Left AC, History Other Infectious Disease - MRSA Denies: Hx Hepatitis, Hx Human Immunodeficiency Virus (HIV), Traveled Outside the [place] in Last 30 Days - Family History Known Family History: Positive: Hypertension, Diabetes, Other - neg: MRSA - Social History Occupation: Employed Full-time Lives: With Family Alcohol Use: None Alcohol Amount: pt denies alcohol use Hx Substance Use: Yes Substance Use Type: Reports: None Substance Use Comment - Amount & Last Used: SUBOXONE Hx Tobacco Use: No Smoking Status (MU): Light Every Day Tobacco Smoker Type: Smokeless Tobacco Amount Used/How Often: 1 can/ day Have You Smoked in the Last Year: No Review of Systems Negative: Fever, Chills, Fatigue, Skin Diaphoresis Negative: Palpitations, Chest Pain Negative: Shortness Of Breath, Cough Genitourinary: Negative Positive: no symptoms reported, see HPI Positive: Other - open and closed large serous filled blisters to the RLE with surrounding induration and erythema extending to just BTK with erythemaous large streaking to the medial thigh without lymphangitis. All Other Systems Reviewed And Are Negative: Yes Physical Exam Triage Information Reviewed: Yes Vital Signs On Initial Exam: Initial Vitals Temp Pulse Resp BP Pulse Ox 99.7 F 122 16 118/79 95 02/17/19 07:45 02/17/19 07:45 02/17/19 07:45 02/17/19 07:45 02/17/19 07:45 Vital Signs Reviewed: Yes Appearance: Positive: Well-Appearing Skin: Positive: Other - erythematous RLE with blisters Head/Face: Positive: Normal Head/Face Inspection Eyes: Positive: EOMI, Conjunctiva Clear Neck: Positive: Supple, No Lymphadenopathy Respiratory/Lung Sounds: Positive: Clear to Auscultation, Breath Sounds Present Cardiovascular: Positive: Pulses are Symmetrical in both Upper and Lower Extremities Musculoskeletal: Positive: Strength/ROM Intact Neurological: Positive: Speech Normal Psychiatric: Positive: Affect/Mood Appropriate AVPU Assessment: Alert Procedures - Sedation Patient Received Moderate/Deep Sedation with Procedure: No Diagnostics - Vital Signs Vital Signs Temp Pulse Resp BP Pulse Ox 02/17/19 07:48 125 93 02/17/19 07:47 125 118/79 92 02/17/19 07:45 99.7 F 122 16 118/79 95 - Laboratory Lab Results: Lab Results 02/17/19 Range/Units 08:04 WBC 7.0 (3.5-10.8) 10^3/uL RBC 4.55 (4.18-5.48) 10^6 /uL Hgb 11.4 L (14.0-18.0) g/dL Hct 34 L (42-52) % MCV 75 L (80-94) fL MCH 25 L (27-31) pg MCHC 33 (31-36) g/dL RDW 15 (10-15) % Plt Count 139 L (150-450) 10^3/uL MPV 8.0 (7.4-10.4) fL Neut % (Auto) 73.0 % Lymph % (Auto) 16.9 % Swift % (Auto) 9.4 % Eos % (Auto) 0.3 % Baso % (Auto) 0.4 % Absolute Neuts (auto) 5.1 (1.5-7.7) 10^3/ul Absolute Lymphs (auto) 1.2 (1.0-4.8) 10^3/ul Absolute Monos (auto) 0.7 (0-0.8) 10^3/ul Absolute Eos (auto) 0.0 (0-0.6) 10^3/ul Absolute Basos (auto) 0.0 (0-0.2) 10^3/ul Absolute Nucleated RBC 0.0 10^3/ul Nucleated RBC % 0.0 Result Diagrams: 02/17/19 08:04 02/17/19 08:04 Lab Statement: Any lab studies that have been ordered have been reviewed, and results considered in the medical decision making process. Course/Dx - Course Course Of Treatment: On arrival into the ED, the patient appears well however he is tachycardic at 125 with a temperature of 99.7. This is following 1000 mg Tylenol just prior to arrival. Patient states he still feels somewhat ill, and fatigued. He does endorse pain in the RLE and has a closed abrasion wound to the LLE still healing but does not appear to have an extending cellulitis surrounding. RLE with erythema from ankle extending to just BTK with small amount of erythema streaking to the medial thigh. Denies other pain. Denies chills, but endorses intermittent sweats. Open blisters to the RLE with serous filled fluid. He is given 1 L normal saline and clindamycin 600 mg IV in the ED. Discussed case with hospitalist, Dr. Merritt for admission due to febrile illness and tachycardia associated with cellulitis. - Differential Diagnoses - Skin Complaint Differential Diagnoses: Cellulitis, Lymphangitis, MRSA - Diagnoses Provider Diagnoses: Cellulitis - Physician Notifications Discussed Care Of Patient With: Ezekiel Merritt Instructed by Provider To: Admit As Inpatient Discharge ED - Sign-Out/Discharge Documenting (check all that apply): Patient Departure - Discharge Plan Condition: Fair Disposition: ADMITTED TO [facility] Referrals: Avis Pelaez MD [Primary Care Provider] - - Billing Disposition and Condition Condition: FAIR Disposition: Admitted to [facility]
[2019-02-17 08:36] LABS: Albumin 3.4 g/dL (3.2-5.2); Albumin/Globulin Ratio 0.9 (1-3); BUN/Creatinine Ratio 18.8 (8-20); C Reactive Protein 327.14 mg/L (<8.01); Calcium 8.6 mg/dL (8.6-10.3); EGFR African American 140.3 (>60); Globulin 3.8 g/dL (2-4); Potassium 3.6 mmol/L (3.5-5.0); Total Bilirubin 0.6 mg/dL (0.2-1.0); Total Protein 7.2 g/dL (6.4-8.9)
[2019-02-17] MEDS ORDERED: NS 0.9% 1000 ML** 1,000 ML IV ONE (08:45)
[2019-02-17] MEDS ORDERED: Vancomycin(*) 2,000 MG in NS 0.9% 500 ML* 500 ML IVPB ONE (10:05)
[2019-02-17] MEDS ORDERED: Buprenorp/Nalox 8-2 MG SL TAB SL PRN ×2 (10:07→11:38)
[2019-02-17] MEDS ORDERED: Docusate CAP* 100 MG PO PRN (10:07)
[2019-02-17] MEDS ORDERED: Dextrose 50% VIAL 50 ml IV PUSH PRN (10:07)
[2019-02-17] MEDS ORDERED: Ondansetron INJ* 2 MG/ML VIAL IV PRN (10:19)
[2019-02-17] MEDS ORDERED: Vancomycin per Pharmacy* NOTE FOLLOW UP SCH (11:00)
[2019-02-17] MEDS: NS 0.9% 1000 ML** 2,000 ML IV ONE ×2 (11:03→14:37)
[2019-02-17] MEDS: Acetaminophen TAB* 325 MG PO PRN ×2 (11:51→18:16)
[2019-02-17] MEDS: Insulin LISPRO* 1 UNITS UNIT SUBCUT SCH ×3 (11:52→21:05)
--- NOTE | 2019-02-17 12:15 | HP ---
CC: Avis Pelaez MD* ADMISSION HISTORY AND PHYSICAL: DATE OF ADMISSION: 02/17/19 PRIMARY CARE PROVIDER: Avis Pelaez MD, at [facility]. HEALTHCARE PROXY: His stepmother. CODE STATUS: Full. SOURCE OF INFORMATION: History obtained from interview with the patient, discussion with the ER provider. RELIABILITY: Good. CHIEF COMPLAINT: Right lower extremity pain and redness. HISTORY OF PRESENT ILLNESS: This is a 28-year-old man with past medical history of morbid obesity and type 2 diabetes, felt in his usual state of health until approximately Friday, after which he woke overnight, and on Friday , noticed that his right leg was in pain. He slept for most of the day, Friday and Friday, with increasing pain and erythema of his right lower extremity and his cousin advised him to go get checked. He went to [facility], was seen , was started on Augmentin and Bactrim, which he started; however, today the day admission 3 days after initiation of his first symptoms, had a temperature of 103.7 and activated EMS to proceed to the emergency room. He does note after starting the Augmentin and Bactrim from yesterday, his pain and redness felt a little bit better, but he denies any subjective or objective fevers prior to presentation. He denies any chest pain, shortness of breath, nausea, vomiting, lightheadedness, diarrhea, or loss of consciousness over the course of these days. He does note that since he has been feeling sick since Friday, he was inconsistently taking this medication including his Lantus. The patient does have a history of intravenous drug use for which he takes Suboxone and has not used in over 4 years. PAST MEDICAL HISTORY: Includes type 2 diabetes, GERD, history of substance use disorder on Suboxone. MEDICATIONS: Reviewed with the patient. Reports takin. Suboxone 12 mg twice daily with 4 mg p.r.n. as needed. 2. Metformin 1000 mg twice daily. 3. Furosemide 20 mg as needed, which is different than what is reported in the chart. 4. Colace. 5. Omeprazole 40 mg daily. 6. Lantus 15 units at night. ALLERGIES: To nothing. He reports in the past has had an allergy to TYLENOL, but took TYLENOL prior to presentation without any adverse effects. FAMILY HISTORY: His mother from complication of type 2 diabetes. SOCIAL HISTORY: Chews tobacco and no alcohol. History of substance use disorder, 4 years clean on Suboxone. 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 REVIEW OF SYSTEMS: As per HPI, otherwise all other systems negative. PHYSICAL EXAMINATION GENERAL: He is an obese man, lying flat, but interactive, pleasant, in no apparent distress. VITAL SIGNS: When seen by this author, 119/70, heart rate 106, respiratory rate of 16, T-max in the emergency room was 99.7, and he is on 100% on room air. HEENT: Oropharynx is clear. He has moist mucous membranes. Sclerae are anicteric. LUNGS: Clear to auscultation. HEART: He has regular rate and rhythm. There are no murmurs, rubs, or gallops. ABDOMEN: Soft, nontender, nondistended. LOWER EXTREMITIES: Have some bilateral trace edema. SKIN: Notable for skin breakdown with nonpurulent drainage from pretibial region on his right. He has some scarring wounds healing on his left pretibial region with some surrounding erythema. The erythema of his right leg extends from proximally his ankle up to 2 to 3 inches below his right knee. There is some streaking erythema posterior thigh as well as medial thigh, although it is unclear to me whether this is associated with infection or from the pressure of his leg on the way he is lying on a pillow at that time. There is additional drainage of the right lateral aspect of the wound. DIAGNOSTIC STUDIES/LAB DATA: Labs were reviewed, notable for white blood cell count of 7.0, hemoglobin of 11.4, MCV of 75, platelets of 139. Sodium of 130, chloride of 93, glucose 306, CRP is 327. ASSESSMENT AND PLAN: This is a 28-year-old man with type 2 diabetes, presenting with sepsis secondary to cellulitis, predominantly right lower extremity. 1. Sepsis. The patient does have tachycardia, fever reported at home, thrombocytopenia, otherwise no other end organ dysfunction. Receiving sepsis bolus from the emergency room, approximately 1 L already delivered. He has responded well. I will add a lactic acid, another 2 L, which is less than 30 cc /kg, as he is already responding to 1 L and did not want a risk volume overload. He received clindamycin. We will continue vancomycin given skin breakdown concern for purulent cellulitis. Check wound culture. Blood cultures have already been obtained and monitor for improvement. 2. Type 2 diabetes. Fingerstick glucose a.c. and h.s. with sliding scale insulin. We will restart his metformin as well as home Lantus at reported dose. His hemoglobin A1c in December of this year was 9.6%. The patient reports that he takes glipizide, which he believes is 4 mg daily, but is unclear. We will hold this medication at this time. I need to query his primary care provider for actual dose and restart prior to discharge. 3. History of substance use disorder. Continue home Suboxone 12 mg twice daily with 4 mg breakthrough. 4. Hyponatremia. Suspect in the setting of volume depletion. Volume replete for sepsis as above. Recheck labs in the morning. 5. Microcytic anemia. Check iron studies tomorrow including ferritin, iron, transferrin, and binding. 6. Thrombocytopenia, suspect in the setting of sepsis, repeat tomorrow. 7. DVT prophylaxis. Heparin subcutaneously. [id number]/[facility] #: [id number] JOAN
[2019-02-17] MEDS: Heparin VIAL(*) 5000 UNITS/ML VIAL (FIVE THOUSAND) SUBCUT SCH ×2 (14:37→20:45)
[2019-02-17] MEDS: metFORMIN* 1,000 MG TAB PO SCH (18:17)
[2019-02-17] MEDS: Vancomycin(*) 1,000 MG in NS 0.9% 250 ML* 250 ML IV SCH (19:18)
[2019-02-17] MEDS: Buprenorp/Nalox 8-2 MG SL TAB PO SCH (20:43)
[2019-02-17] MEDS: Buprenorp/Nalox 2-0.5 MG SL TAB PO SCH (20:44)
[2019-02-17] MEDS: Insulin GLARGINE(*) 1 UNITS UNIT SUBCUT SCH (21:05)
[2019-02-18] MEDS: Acetaminophen TAB* 325 MG PO PRN ×3 (00:40→17:38)
[2019-02-18] MEDS: Vancomycin(*) 1,000 MG in NS 0.9% 250 ML* 250 ML IV SCH ×2 (00:41→09:37)
[2019-02-18 05:06] LABS: Anion Gap 8 mmol/L (2-11); BUN/Creatinine Ratio 21.5 (8-20); Blood Urea Nitrogen 14 mg/dL (6-24); CO2 Carbon Dioxide 24 mmol/L (22-32); Calcium 8.1 mg/dL (8.6-10.3); Chloride 100 mmol/L (101-111); EGFR African American 178.3 (>60); EGFR Non-African American 147.4 (>60); Glucose 195 mg/dL (70-100); Potassium 4.1 mmol/L (3.5-5.0); Sodium 132 mmol/L (135-145)
[2019-02-18 05:53] LABS: Total Iron Binding Capacity 221 mcg/dL (250-450); Transferrin 158 mg/dL (203-362)
[2019-02-18] MEDS: Heparin VIAL(*) 5000 UNITS/ML VIAL (FIVE THOUSAND) SUBCUT SCH ×3 (06:05→22:11)
[2019-02-18 06:11] LABS: Ferritin 266.1 ng/mL (24-336)
[2019-02-18] MEDS: Pantoprazole TAB * 40 MG TAB PO SCH (08:03)
[2019-02-18] MEDS: Buprenorp/Nalox 8-2 MG SL TAB PO SCH (09:10)
[2019-02-18] MEDS: Insulin LISPRO* 1 UNITS UNIT SUBCUT SCH ×4 (09:10→20:25)
[2019-02-18] MEDS: Buprenorp/Nalox 2-0.5 MG SL TAB PO SCH (09:10)
[2019-02-18] MEDS: metFORMIN* 1,000 MG TAB PO SCH ×2 (09:10→17:34)
--- NOTE | 2019-02-18 09:49 | PN ---
Subjective Date of Service: 02/18/19 Interval History: Right arm was red with vanco infusion. Infusion slowed with success. Pain in right leg improved but still present No complaints Objective Active Medications: Acetaminophen (Tylenol Tab*) 650 mg PO Q4H PRN PRN Reason: MILD PAIN or TEMP > 100.4 Last Admin: 02/18/19 06:04 Dose: 650 mg Buprenorphine/Naloxone (Suboxone 8-2 Mg Sl Tab*) 1 tab.sl PO BID [facility] Last Admin: 02/18/19 09:10 Dose: 1 tab.sl Buprenorphine/Naloxone (Suboxone 2-0.5 Mg Sl Tab*) 2 each PO BID [facility] Last Admin: 02/18/19 09:10 Dose: 2 each Buprenorphine/Naloxone (Suboxone 8-2 Mg Sl Tab*) 4 tab.sl SL Q24H PRN PRN Reason: Withdrawal Last Admin: 02/17/19 11:51 Dose: 4 tab.sl Dextrose (Dextrose 50% Vial 50 Ml*) 25 ml IV PUSH .FOR FS < 60 - SS PRN PRN Reason: FS < 60 Docusate Sodium (Colace Cap*) 100 mg PO BID PRN PRN Reason: CONSTIPATION Last Admin: 02/18/19 06:05 Dose: 100 mg Heparin Sodium (Porcine) (Heparin Vial(*)) 5,000 units SUBCUT Q8HR [facility] Last Admin: 02/18/19 06:05 Dose: 5,000 units Clindamycin HCl/Dextrose (Cleocin 600 Mg/50 Ml(*)) 600 mg in 50 mls @ 100 mls/ hr IV Q8H [facility] Insulin Glargine (Lantus(*)) 15 units SUBCUT BEDTIME [facility] Last Admin: 02/17/19 21:05 Dose: 15 units Insulin Human Lispro (Humalog*) 0 units SUBCUT ACHS [facility]; Protocol Last Admin: 02/18/19 09:10 Dose: 9 unit Metformin HCl (Glucophage*) 1,000 mg PO BID WITH MEALS [facility] Last Admin: 02/18/19 09:10 Dose: 1,000 mg Ondansetron HCl (Zofran Inj*) 4 mg IV Q4H PRN PRN Reason: NAUSEA/VOMITING Pantoprazole Sodium (Protonix Tab*) 40 mg PO DAILY [facility] Last Admin: 02/18/19 08:03 Dose: 40 mg Vital Signs - 8 hr 02/18/19 02/18/19 03:15 09:10 Temperature 97.6 F Pulse Rate 86 Respiratory 17 20 Rate Blood Pressure 123/71 (mmHg) O2 Sat by Pulse 98 Oximetry Oxygen Devices in Use Now: None Appearance: NAD Eyes: No Scleral Icterus Ears/Nose/Mouth/Throat: NL Teeth, Lips, Gums, Clear Oropharnyx Neck: NL Appearance and Movements; NL JVP Respiratory: Symmetrical Chest Expansion and Respiratory Effort, Clear to Auscultation Cardiovascular: RRR Abdominal: NL Sounds; No Tenderness; No Distention Skin: - - right erythema improved, draining serosangenous fluid, area of left erythema improved Neurological: Alert and Oriented x 3 Result Diagrams: 02/17/19 08:04 02/18/19 04:33 Additional Lab and Data: Lab Results 02/17/19 Range/Units 08:04 WBC 7.0 (3.5-10.8) 10^3/uL RBC 4.55 (4.18-5.48) 10^6 /uL Hgb 11.4 L (14.0-18.0) g/dL Hct 34 L (42-52) % MCV 75 L (80-94) fL MCH 25 L (27-31) pg MCHC 33 (31-36) g/dL RDW 15 (10-15) % Plt Count 139 L (150-450) 10^3/uL MPV 8.0 (7.4-10.4) fL Neut % (Auto) 73.0 % Lymph % (Auto) 16.9 % [place] % (Auto) 9.4 % Eos % (Auto) 0.3 % Baso % (Auto) 0.4 % Absolute Neuts (auto) 5.1 (1.5-7.7) 10^3/ul Absolute Lymphs (auto) 1.2 (1.0-4.8) 10^3/ul Absolute Monos (auto) 0.7 (0-0.8) 10^3/ul Absolute Eos (auto) 0.0 (0-0.6) 10^3/ul Absolute Basos (auto) 0.0 (0-0.2) 10^3/ul Absolute Nucleated RBC 0.0 10^3/ul Nucleated RBC % 0.0 Microbiology and Other Data: Microbiology 02/17/19 09:05 Blood Culture - Preliminary Blood Venous No Growth Day 1 02/17/19 07:46 Aerobic Blood Culture - Final Blood Venous Not Reportable Anaerobic Blood Culture - Final Not Reportable Blood Culture - Preliminary No Growth Day 1 02/17/19 12:50 Gram Stain - Final Leg Right Assess/Plan/Problems-Billing Assessment: 28 yo M h/o DM2, 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
[2019-02-18] MEDS ORDERED: Vancomycin Trough Check NOTE FOLLOW UP ONE (10:30)
[2019-02-18 11:01] LABS: ABS Eosinophils 0.1 10^3/ul (0-0.6); ABS Lymphocytes 1.2 10^3/ul (1.0-4.8); ABS Monocytes 0.4 10^3/ul (0-0.8); ABS Neutrophils 2.9 10^3/ul (1.5-7.7); Eosinophil % 1.7 %; Hematocrit 31 % (42-52); Hemoglobin 10.5 g/dL (14.0-18.0); Lymphocyte % 26.3 %; Mean Corpuscular HGB Conc 33 g/dL (31-36); Mean Corpuscular Hemoglobin 25 pg (27-31); Mean Corpuscular Volume 76 fL (80-94); Mean Platelet Volume 8.1 fL (7.4-10.4); Platelet Count 153 10^3/uL (150-450); Red Blood Count 4.14 10^6 /uL (4.18-5.48); Red Cell Distribution Width 15 % (10-15); White Blood Count 4.5 10^3/uL (3.5-10.8)
[2019-02-18 11:20] LABS: % Iron Saturation 9 % (15-55); Iron < 20 ug/dL (50-212); Total Iron Binding Capacity 221 mcg/dL (250-450); Transferrin 158 mg/dL (203-362)
[2019-02-18] MEDS: Clindamycin 600 MG/D5W BAG(*) 600 MG/50 ML BAG IV SCH ×2 (11:44→20:13)
[2019-02-18] MEDS ORDERED: Buprenorp/Nalox 8-2 MG SL TAB SL PRN ×2 (17:52→17:55)
[2019-02-18] MEDS ORDERED: Buprenorp/Nalox 4-1 MG FILM SL FILM PRN (18:47)
[2019-02-18] MEDS: Insulin GLARGINE(*) 1 UNITS UNIT SUBCUT SCH (20:17)
[2019-02-18] MEDS: Buprenorp/Nalox 4-1 MG FILM SL FILM SCH (21:58)
[2019-02-19] MEDS: Clindamycin 600 MG/D5W BAG(*) 600 MG/50 ML BAG IV SCH (02:55)
[2019-02-19] MEDS: Acetaminophen TAB* 325 MG PO PRN (03:05)
[2019-02-19] MEDS: Heparin VIAL(*) 5000 UNITS/ML VIAL (FIVE THOUSAND) SUBCUT SCH (05:01)
[2019-02-19] MEDS: Pantoprazole TAB * 40 MG TAB PO SCH (08:58)
[2019-02-19] MEDS: metFORMIN* 1,000 MG TAB PO SCH (08:58)
[2019-02-19] MEDS: Buprenorp/Nalox 4-1 MG FILM SL FILM SCH (08:58)
[2019-02-19] MEDS: Insulin LISPRO* 1 UNITS UNIT SUBCUT SCH (08:58)
[2019-02-19 09:28] VITALS: BP 124/80
--- NOTE | 2019-02-20 01:50 | DS ---
CC: Avis Pelaez MD* DISCHARGE SUMMARY: DATE OF ADMISSION: 02/17/19 DATE OF DISCHARGE: 02/19/19 PRIMARY CARE PROVIDER: Avis Pelaez MD at [facility]. PRIMARY DIAGNOSIS: Cellulitis of the right lower extremity, also involving the left lower extremity. SECONDARY DIAGNOSES: Include: 1. History of substance use disorder. 2. Obesity. 3. Type 2 diabetes. 4. Iron deficiency. MEDICATIONS AT DISCHARGE: Include: 1. Metformin 1000 mg twice daily. 2. Omeprazole 40 mg daily. 3. Naproxen 250 mg twice daily as needed. 4. Glargine 15 units at bedtime. 5. Lasix 50 mg daily. 6. Docusate 100 mg twice daily as needed for constipation. 7. Clindamycin 600 mg 3 times a day for 8 additional days. 8. Suboxone 01/26 twice daily as well as 05/25 daily as needed. 9. Glipizide, unknown dose, to continue his home dose. Please note the addition of antibiotics to the patient's home medications. HISTORY OF PRESENT ILLNESS AND HOSPITAL COURSE: This is a 28-year-old man with past medical history as outlined in the history of present illness, who on the day of admission presented to the hospital with fatigue, fever, and with extensive right lower extremity cellulitis as well as a small area of cellulitis over the pretibial region of his left leg, surrounding area of skin breakdown. The patient was started on vancomycin, transitioned to clindamycin. Wound culture grew group A strep. He had brisk improvement on clindamycin and will be discharged with 8 additional days of oral antibiotics to complete a 10-day course. The patient does have a followup with Avis Pelaez in 7 days, at which time extension of antibiotics could be considered. Discussed at length wound care including cleaning gently with soap and water and patting dry. The patient acknowledged understanding. Additionally discussed better control of diabetes. At the time of discharge, the patient's erythema extended from the ankle of his right leg circumferentially to approximately 6 to 8 inches below his right knee and he has much smaller area on the pretibial region on his left leg that has almost completely healed while on antibiotics. At followup please; 1. Extend antibiotics as necessary. 2. Consider starting iron for iron deficiency anemia. Also would recommend colonoscopy given his iron deficiency in young age. 3. Adjust diabetic medications as necessary, may need up titration of Lantus and/or initiation of third agent. 4. No other specific labs or vitals that need followup. Reasons to return to the hospital included, but not limited to, worsening erythema, pain, fever, chills, night sweats, inability to obtain or tolerate medications were discussed with the patient. He acknowledged understanding. TIME SPENT: Greater than 60 minutes was spent discharging the patient, greater than half was spent [id number] with the patient. [id number]/[facility] #: [id number] JOAN
== END 2019-02-19 09:50 | disposition home or self-care (01) | DRG 603 ==
LOC: ED 07:40 → MEDTELE 10:20 → OBSVTOIN 02-18 11:00
PROVIDERS: ADMIT Internal Medicine; ATTEND Internal Medicine
DX: L03.116 Cellulitis of left lower limb (principal); E87.1 Hypo-osmolality and hyponatremia; Z68.42 Body mass index [BMI] 45.0-49.9, adult; L03.115 Cellulitis of right lower limb; D50.9 Iron deficiency anemia, unspecified; E66.01 Morbid (severe) obesity due to excess calories; K21.9 Gastro-esophageal reflux disease without esophagitis; D69.6 Thrombocytopenia, unspecified; F17.220 Nicotine dependence, chewing tobacco, uncomplicated; E11.65 Type 2 diabetes mellitus with hyperglycemia; F19.11 Other psychoactive substance abuse, in remission; Z28.21 Immunization not carried out because of patient refusal; Z79.4 Long term (current) use of insulin; Z79.899 Other long term (current) drug therapy; Z88.6 Allergy status to analgesic agent; Z86.14 Personal history of Methicillin resistant Staphylococcus aureus infection
CPT/HCPCS: 36415; 80048; 80053; 80202; 82728; 83540; 83550; 83605; 85025; 86140; 87040; 87070; 87077; 87205; 96365; 96367; 99284; A9270-GY; G0378; J1644; J3370

== ENCOUNTER 2019-03-13 10:38 | Emergency (ER) | payer MEDICARE, MEDICAID ==
[2019-03-13 10:58] VITALS: BP 156/76
--- NOTE | 2019-03-13 11:17 | UC ---
Respiratory Complaint HPI - HPI Summary HPI Summary: started with cough yesterday. today cough is burning chest, no SOB or wheezing. has tried no meds. He is concerned about flu since he has DM and possible exposure - History of Current Complaint Chief Complaint: UCRespiratory Stated Complaint: COUGH Time Seen by Provider: 03/13/19 10:56 Hx Obtained From: Patient Onset/Duration: Gradual Onset Severity Initially: Mild Severity Currently: None Pain Intensity: 0 Associated Signs And Symptoms: Positive: Fever, Nasal Congestion. Negative: Wheezing, Hemoptysis, Calf Pain, Calf Swelling - Allergies/Home Medications Allergies/Adverse Reactions: Allergies Allergy/AdvReac Type Severity Reaction Status Date / Time bee venom protein (honey bee) Allergy Anaphylatic Verified 03/13/19 10:58 Shock PMH/Surg Hx/FS Hx/Imm Hx Previously Healthy: Yes Endocrine History: Diabetes Other History Of: Hepatitis C - Surgical History Surgical History: Yes Surgery Procedure, Year, and Place: Abcess I+D. Pleuracentesis - Family History Known Family History: Positive: Hypertension, Diabetes, Other - neg: MRSA - Social History Occupation: Employed Part-time Lives: With Family Alcohol Use: None Alcohol Amount: pt denies alcohol use Substance Use Type: None, Other - past hx heroin Substance Use Comment - Amount & Last Used: SUBOXONE Smoking Status (MU): Current Some Day Smoker Type: Smokeless Tobacco Amount Used/How Often: 1 can/ day Have You Smoked in the Last Year: No Cessation Counseling: Patient Advised to Stop - Immunization History Most Recent Influenza Vaccination: 2008 Most Recent Tetanus Shot: unk Most Recent Pneumonia Vaccination: 2010, per pt Review of Systems All Other Systems Reviewed And Are Negative: Yes Constitutional: Positive: Fever Skin: Positive: Negative Eyes: Positive: Negative ENT: Positive: Sinus Congestion. Negative: Sore Throat, Sinus Pain/Tenderness Respiratory: Positive: Cough Cardiovascular: Positive: Negative Neurovascular: Positive: Negative Musculoskeletal: Positive: Negative Neurological: Positive: Negative Psychological: Positive: Negative Is Patient Immunocompromised?: No Physical Exam Triage Information Reviewed: Yes Appearance: Well-Appearing, No Pain Distress, Obese Vital Signs: Initial Vital Signs Temp 99.7 F 03/13/19 10:53 Pulse 117 03/13/19 10:53 Resp 16 03/13/19 10:53 BP 156/76 03/13/19 10:53 Pulse Ox 99 03/13/19 10:53 Vital Signs Reviewed: Yes Eye Exam: Normal Eyes: Positive: Conjunctiva Clear ENT Exam: Normal ENT: Positive: Pharynx normal, Nasal congestion, TMs normal Neck exam: Normal Respiratory: Positive: Lungs clear, Other: - no cough heard during exam. Negative: Wheezing Cardiovascular Exam: Normal Neurological Exam: Normal Psychological Exam: Normal Skin Exam: Normal Respiratory Course/Dx - Differential Dx/Diagnosis Differential Diagnosis/HQI/PQRI: Bronchitis, Influenza, Lower Resp Infection, Sinusitis Provider Diagnosis: Sinusitis Discharge ED - Sign-Out/Discharge Documenting (check all that apply): Patient Departure All imaging exams completed and their final reports reviewed: No Studies - Discharge Plan Condition: Good Disposition: HOME Prescriptions: Azithromyxin RENE (NF) [Z-Rene (Zithromax) 250 mg tabs #6] 2 tab PO .TODAY, THEN 1 DAILY #6 tab Patient Education Materials: Sinusitis (ED) Referrals: Avis Pelaez MD [Primary Care Provider] - 2 Days (if no better) Additional Instructions: drink plenty of fluids and rest start z-rene today and take as directed Use ibuprofen as directed for pain and fever - Billing Disposition and Condition Condition: GOOD Disposition: Home
[2019-03-13 11:35] LABS: Influenza A Molecular NEGATIVE (Negative); Influenza B Molecular NEGATIVE (Negative)
== END 2019-03-13 11:52 | disposition home or self-care (01) ==
LOC: UCEAST 10:38
DX: J32.9 Chronic sinusitis, unspecified (principal); R05 Cough; E11.9 Type 2 diabetes mellitus without complications; B19.20 Unspecified viral hepatitis C without hepatic coma; Z91.030 Bee allergy status; F17.200 Nicotine dependence, unspecified, uncomplicated
CPT/HCPCS: 99212; G0463

== ENCOUNTER 2019-04-22 14:02 | Emergency (ER) | payer MEDICARE, MEDICAID ==
[2019-04-22 14:27] VITALS: BP 151/88
--- NOTE | 2019-04-22 14:42 | UC ---
Dental HPI - HPI Summary HPI Summary: 28 yo diabetic with one day history of upper gum swelling at the site of a broken tooth. He has not had fever, and has scheduled a dental check, but has to wait for 2 weeks. Blood sugar control has been good and he has stopped insulin which he was taking in the past. - History of Current Complaint Chief Complaint: UCDentalProblem Stated Complaint: TOOTH COMPLAINT Time Seen by Provider: 04/22/19 14:35 Hx Obtained From: Patient Onset/Duration: Sudden Onset, Lasting Hours Severity: Mild Pain Intensity: 0 Aggravating Factor(s): Nothing Alleviating Factor(s): OTC Meds Related History: Other - dental decay and fracture - Allergies/Home Medications Allergies/Adverse Reactions: Allergies Allergy/AdvReac Type Severity Reaction Status Date / Time bee venom protein (honey bee) Allergy Anaphylatic Verified 04/22/19 14:27 Shock Home Medications: Home Medications metFORMIN* [Glucophage 1000 MG TAB *] 1,000 mg PO BID 07/15/17 [History Confirmed 04/22/19] Docusate Sodium [Colace] 100 mg PO BID PRN 10/31/17 [History Confirmed 04/22/19] Furosemide TAB* [Lasix TAB*] 15 mg PO DAILY PRN 10/31/17 [History Confirmed ] Omeprazole 40 mg PO DAILY 04/15/18 [History Confirmed 04/22/19] Buprenorp/Nalox 8-2 MG SL TAB [Suboxone 8-2 mg SL TAB*] 0.5 tab SL DAILY PRN #0 02/19/19 [Rx Confirmed 04/22/19] Penicillin VK 500 MG TAB(NF) [Penicillin VK 500 mg Tab] 500 mg PO QID #28 tab [Rx] PMH/Surg Hx/FS Hx/Imm Hx Endocrine History: Diabetes GI/ History: Gastroesophageal Reflux Other History Of: Hepatitis C - Surgical History Surgical History: Yes Surgery Procedure, Year, and Place: Abcess I+D. Pleuracentesis - Family History Known Family History: Positive: Hypertension, Diabetes, Other - neg: MRSA - Social History Occupation: Unemployed Lives: With Family Alcohol Use: None Alcohol Amount: pt denies alcohol use Substance Use Type: None Substance Use Comment - Amount & Last Used: SUBOXONE Smoking Status (MU): Current Some Day Smoker Type: Smokeless Tobacco Amount Used/How Often: 1 can/ day Have You Smoked in the Last Year: No - Immunization History Most Recent Influenza Vaccination: 2008 Most Recent Tetanus Shot: unk Most Recent Pneumonia Vaccination: 2010, per pt Review of Systems All Other Systems Reviewed And Are Negative: Yes Constitutional: Positive: Negative Skin: Positive: Other - treatment of right leg cellulitis--currently wound has healed on right foreleg. Eyes: Positive: Negative ENT: Positive: Negative Respiratory: Positive: Negative Cardiovascular: Positive: Negative Gastrointestinal: Positive: Negative Genitourinary: Positive: Negative Motor: Positive: Negative Neurovascular: Positive: Negative Musculoskeletal: Positive: Negative Neurological/Mental Status: Positive: Negative Psychological: Positive: Negative Is Patient Immunocompromised?: No Physical Exam Triage Information Reviewed: Yes Appearance: Well-Appearing, No Pain Distress, Obese Vital Signs: Initial Vital Signs Temp 98.1 F 04/22/19 14:24 Pulse 104 04/22/19 14:24 Resp 18 04/22/19 14:24 BP 151/88 04/22/19 14:24 Pulse Ox 98 04/22/19 14:24 Eyes: Positive: Conjunctiva Clear ENT: Positive: Pharynx normal Dental: Positive: Gross Decay/Caries @ - --gum swollen, no drainage. Negative: Cellulitis @, Cervical Lymphadenopathy Neck: Positive: Supple, Nontender, No Lymphadenopathy Respiratory: Positive: Lungs clear, Normal breath sounds Cardiovascular: Positive: RRR, No Murmur Neurological Exam: Normal Psychological Exam: Normal Skin Exam: Other - persistent foreleg erythema, wound healed Images Dental: 1 - deep decay and gum swelling. Dental Complaint Course/Dx - Course Course Of Treatment: Pen VK for treatment of early abscess. Dental check is pending. - Differential Dx/Diagnosis Differential Diagnosis/Dx: Dental Caries, Fractured Tooth Provider Diagnosis: Dental abscess Discharge ED - Sign-Out/Discharge Documenting (check all that apply): Patient Departure All imaging exams completed and their final reports reviewed: No Studies - Discharge Plan Condition: Stable Disposition: HOME Prescriptions: Penicillin VK 500 MG TAB(NF) [Penicillin VK 500 mg Tab] 500 mg PO QID #28 tab Patient Education Materials: Dental Abscess (ED) Referrals: Avis Pelaez MD [Primary Care Provider] - Additional Instructions: Begin use of penicillin to prevent increasing infection in the affected tooth. Use warm water and salt gargles to decrease swelling --swish and spit three times daily. Use ibuprofen 600mg up to 3 times per day if you develop pain. Follow up with your dentist as arranged. - Billing Disposition and Condition Condition: STABLE Disposition: Home
== END 2019-04-22 14:54 | disposition home or self-care (01) ==
LOC: UCEAST 14:02
DX: K04.7 Periapical abscess without sinus (principal); E11.9 Type 2 diabetes mellitus without complications; K21.9 Gastro-esophageal reflux disease without esophagitis; F17.290 Nicotine dependence, other tobacco product, uncomplicated; Z79.84 Long term (current) use of oral hypoglycemic drugs; Z91.030 Bee allergy status; Z79.899 Other long term (current) drug therapy
CPT/HCPCS: 99212; G0463

== ENCOUNTER 2019-04-30 13:55 | Emergency (ER) | payer MEDICARE, MEDICAID ==
[2019-04-30 15:18] LABS: ABS Eosinophils 0.1 10^3/ul (0-0.6); ABS Lymphocytes 1.7 10^3/ul (1.0-4.8); ABS Monocytes 0.4 10^3/ul (0-0.8); ABS Neutrophils 2.4 10^3/ul (1.5-7.7); Eosinophil % 2.5 %; Hematocrit 35 % (42-52); Hemoglobin 11.7 g/dL (14.0-18.0); Lymphocyte % 36.5 %; Mean Corpuscular HGB Conc 33 g/dL (31-36); Mean Corpuscular Hemoglobin 25 pg (27-31); Mean Corpuscular Volume 75 fL (80-94); Mean Platelet Volume 7.5 fL (7.4-10.4); Platelet Count 209 10^3/uL (150-450); Red Blood Count 4.74 10^6 /uL (4.18-5.48); Red Cell Distribution Width 17 % (10-15); White Blood Count 4.6 10^3/uL (3.5-10.8)
[2019-04-30 15:36] LABS: Albumin/Globulin Ratio 1.3 (1-3); BUN/Creatinine Ratio 20.9 (8-20); C Reactive Protein 7.69 mg/L (<8.01); Calcium 9.8 mg/dL (8.6-10.3); EGFR African American 172.2 (>60); EGFR Non-African American 142.3 (>60); Globulin 3.2 g/dL (2-4); Potassium 4.1 mmol/L (3.5-5.0); Total Bilirubin 0.4 mg/dL (0.2-1.0); Total Protein 7.2 g/dL (6.4-8.9)
[2019-04-30 15:42] LABS: INR 1.06 (0.82-1.09)
[2019-04-30 16:22] VITALS: BP 138/80
--- NOTE | 2019-05-01 06:27 | ED ---
Neurological HPI - HPI Summary HPI Summary: This patient is a 28-year-old male who presents to the ED with concern for left- sided cheek "tightness" and decreased sensation to this area x 2 days. Currently on penicillin for R sided dental pain and has a hx of cellulitis which he using creams. Hx of diabetes, HTN, recurrent cellulitis. PCP is Dr. Avis Pelaez. Patient states he was able to call his PCP today and due to his symptoms, she sent the patient in for further evaluation. Patient did endorse feeling a moment of weakness in his left hand yesterday, but this was brief, lasting a few minutes and then resolves. He denied any bilateral upper or lower extremity numbness or tingling. Denies any visual changes, headache, facial droop, weakness, unsteady gait, loss of sensation to other parts of the body. Has never had these sxs in the past. Since yesterday, pt now endorsing a movement of the decreased sensation feeling to just below the eye. Denies any decreased cheek sensation at this time. Denies any eye involvement, eye twitching or warm feeling or swelling to the area or just below the eye. Feels at his baseline otherwise. Concerned on arrival as his father had a hx of strokes. Denies any allergies to medications. Denies any medication changes other than recent penicillin (has been on for 7 days). Pt chews tobacco daily. - History of Current Complaint Chief Complaint: EDNeurologicalDeficit Stated Complaint: POSSIBLE STOKE Time Seen by Provider: 04/30/19 14:24 Hx Obtained From: Patient Onset/Duration: Sudden Onset Timing: Constant Onset Severity: Mild Current Severity: Mild Pain Intensity: 0 Pain Scale Used: 0-10 Numeric - Additional Pertinent History Primary Care Physician: [id number] - Allergy/Home Medications Allergies/Adverse Reactions: Allergies Allergy/AdvReac Type Severity Reaction Status Date / Time bee venom protein (honey bee) Allergy Anaphylatic Verified 04/30/19 14:02 Shock Home Medications: Home Medications metFORMIN* [Glucophage 1000 MG TAB *] 1,000 mg PO BID 07/15/17 [History Confirmed 04/30/19] Docusate Sodium [Colace] 100 mg PO BID PRN 10/31/17 [History Confirmed 04/30/19] Buprenorphine TAB* [Subutex TAB*] 8 mg SL TID 04/30/19 [History Confirmed ] Glimepiride (NF) 4 mg PO BID 04/30/19 [History Confirmed 04/30/19] Omeprazole (Nf) [Prilosec (NF)] 40 mg PO DAILY 04/30/19 [History Confirmed 04/29] PMH/Surg Hx/FS Hx/Imm Hx Previously Healthy: Yes Endocrine/Hematology History: Reports: Hx Diabetes Denies: Hx Thyroid Disease Cardiovascular History: Denies: Hx Hypertension Respiratory History: Reports: Hx Pneumonia Denies: Hx Asthma, Hx Chronic Obstructive Pulmonary Disease (COPD) GI History: Denies: Hx Ulcer Musculoskeletal History: Reports: Hx Back Problems Denies: Hx Scoliosis Sensory History: Denies: Hx Contacts or Glasses, Hx Hearing Aid Opthamlomology History: Denies: Hx Contacts or Glasses Neurological History: Denies: Hx Headaches, Other Neuro Impairments/Disorders Psychiatric History: Reports: Hx Substance Abuse - IV drug use, Other Psychiatric Issues/Disorders - substance abuse history - Surgical History Surgery Procedure, Year, and Place: Abcess I+D. Pleuracentesis - Immunization History Hx Pertussis Vaccination: No Immunizations Up to Date: Yes Infectious Disease History: No Infectious Disease History: Reports: Hx of Known/Suspected MRSA, History Other Infectious Disease - MRSA Denies: Hx Hepatitis, Hx Human Immunodeficiency Virus (HIV), Traveled Outside the [place] in Last 30 Days - Family History Known Family History: Positive: Hypertension, Diabetes, Other - neg: MRSA - Social History Occupation: Employed Full-time Lives: With Family Alcohol Use: None Alcohol Amount: pt denies alcohol use Hx Substance Use: Yes Substance Use Type: Reports: None Substance Use Comment - Amount & Last Used: SUBOXONE Hx Tobacco Use: No Smoking Status (MU): Never Smoked Tobacco Type: Smokeless Tobacco Amount Used/How Often: 1 can/ day Have You Smoked in the Last Year: No Review of Systems Negative: Fever, Chills, Fatigue, Skin Diaphoresis Negative: Palpitations, Chest Pain Negative: Shortness Of Breath, Cough Genitourinary: Negative Positive: no symptoms reported, see HPI Negative: Arthralgia, Myalgia Neurological/Mental Status: Negative All Other Systems Reviewed And Are Negative: Yes Physical Exam Triage Information Reviewed: Yes Vital Signs On Initial Exam: Initial Vitals Temp Pulse Resp BP Pulse Ox 97.7 F 109 16 170/86 97 03/06/20 13:57 04/30/19 13:57 04/30/19 13:57 04/30/19 13:57 04/30/19 13:57 Vital Signs Reviewed: Yes Appearance: Positive: Well-Appearing, Well-Nourished Skin: Positive: Warm, Skin Color Reflects Adequate Perfusion Head/Face: Positive: Normal Head/Face Inspection Eyes: Positive: EOMI, ESTER, Conjunctiva Clear Neck: Positive: Supple, No Lymphadenopathy Respiratory/Lung Sounds: Positive: Clear to Auscultation, Breath Sounds Present Cardiovascular: Positive: RRR, Pulses are Symmetrical in both Upper and Lower Extremities Musculoskeletal: Positive: Normal, Strength/ROM Intact Neurological: Positive: Speech Normal, Other - left cheek tightness/decreased senation - no pain, no eye involvement Psychiatric: Positive: Normal, Affect/Mood Appropriate AVPU Assessment: Verbal (Reponds To) Procedures - Sedation Patient Received Moderate/Deep Sedation with Procedure: No Diagnostics - Vital Signs Vital Signs Temp Pulse Resp BP Pulse Ox 04/30/19 16:20 98.5 F 92 18 138/80 97 04/30/19 13:57 97.7 F 109 16 170/86 97 - Laboratory Lab Results: Lab Results 04/30/19 04/30/19 04/30/19 Range/Units 15:12 15:12 15:12 WBC 4.6 (3.5-10.8) 10^3/uL RBC 4.74 (4.18-5.48) 10^6 /uL Hgb 11.7 L (14.0-18.0) g/dL Hct 35 L (42-52) % MCV 75 L (80-94) fL MCH 25 L (27-31) pg MCHC 33 (31-36) g/dL RDW 17 H (10-15) % Plt Count 209 (150-450) 10^3/uL MPV 7.5 (7.4-10.4) fL Neut % (Auto) 52.1 % Lymph % (Auto) 36.5 % [place] % (Auto) 7.9 % Eos % (Auto) 2.5 % Baso % (Auto) 1.0 % Absolute Neuts (auto) 2.4 (1.5-7.7) 10^3/ul Absolute Lymphs (auto) 1.7 (1.0-4.8) 10^3/ul Absolute Monos (auto) 0.4 (0-0.8) 10^3/ul Absolute Eos (auto) 0.1 (0-0.6) 10^3/ul Absolute Basos (auto) 0.0 (0-0.2) 10^3/ul Absolute Nucleated RBC 0.0 10^3/ul Nucleated RBC % 0.0 INR (Anticoag Therapy) 1.06 (0.82-1.09) Sodium 138 (135-145) mmol/L Potassium 4.1 (3.5-5.0) mmol/L Chloride 104 (101-111) mmol/L Carbon Dioxide 26 (22-32) mmol/L Anion Gap 8 (2-11) mmol/L BUN 14 (6-24) mg/dL Creatinine 0.67 (0.67-1.17) mg/dL Est GFR ( Amer) 172.2 (>60) Est GFR (Non-Af Amer) 142.3 (>60) BUN/Creatinine Ratio 20.9 H (8-20) Glucose 168 H (70-100) mg/dL Calcium 9.8 (8.6-10.3) mg/dL Total Bilirubin 0.40 (0.2-1.0) mg/dL AST 45 H (13-39) U/L ALT 61 H (7-52) U/L Alkaline Phosphatase 46 (34-104) U/L C-Reactive Protein 7.69 (<8.01) mg/L Total Protein 7.2 (6.4-8.9) g/dL Albumin 4.0 (3.2-5.2) g/dL Globulin 3.2 (2-4) g/dL Albumin/Globulin Ratio 1.3 (1-3) Result Diagrams: 04/30/19 15:12 04/30/19 15:12 Lab Statement: Any lab studies that have been ordered have been reviewed, and results considered in the medical decision making process. NIH Scale - NIH Scale Level of Consciousness: Alert/Keenly Responsive Ask Patient the Month and His/Her Age: Both Correct Ask Pt to Open/Close Eyes and Stone Dresser/Release Non-Paretic Hand: Both Correctly Best Gaze (Only Horizontal Eye Movement): Normal Visual Field Testing: No Visual Loss Facial Paresis-Pt to Smile & Close Eyes or Grimace Symmetry: Normal/Symmetrical Motor Function - Right Arm: No Drift-Holds 10 Seconds Motor Function - Left Arm: No Drift-Holds 10 Seconds Motor Function - Right Leg: No Drift-Holds 10 Seconds Motor Function - Left Leg: No Drift-Holds 10 Seconds Sensory (Use Pinprick to Test Arms/Legs/Trunk/Face): Normal Best Language (Describe Picture, Name Items): No Aphasia Dysarthria (Read Several Words): Normal Extinction and Inattention: No Abnormality Course/Dx - Course Course Of Treatment: NIH stroke scale negative on arrival. Patient endorsing mild "tightness" to the L upper cheek under eye x 2 days. Denies any neuro symptoms. Denies any MCFADDEN. Has never had this before. Labs obtained and are WNL. Brain CT with no significant abnormalities. Patient will f/u with PCP. Will return for worsening symptoms. - Differential Dx Differential Diagnoses Neuro: Positive: Other - tobacco use, medication reaction , face tightness, tingling, atypical migraine - Diagnoses Provider Diagnoses: Decreased sensation Discharge ED - Sign-Out/Discharge Documenting (check all that apply): Patient Departure - Discharge Plan Condition: Stable Disposition: HOME Patient Education Materials: Paresthesia (ED) Referrals: Avis Pelaez MD [Primary Care Provider] - Additional Instructions: Please follow up with Dr. Pelaez for further evaluation If symptoms worsen or you notice any weakness - please return to the ED immediately - Billing Disposition and Condition Condition: STABLE Disposition: Home
== END 2019-04-30 16:20 | disposition home or self-care (01) ==
LOC: ED 13:55
DX: R20.9 Unspecified disturbances of skin sensation (principal); E11.9 Type 2 diabetes mellitus without complications; R94.31 Abnormal electrocardiogram [ECG] [EKG]; F17.220 Nicotine dependence, chewing tobacco, uncomplicated; I10 Essential (primary) hypertension; Z86.14 Personal history of Methicillin resistant Staphylococcus aureus infection; Z79.84 Long term (current) use of oral hypoglycemic drugs
CPT/HCPCS: 36415; 70450; 80053; 85025; 85610; 86140; 93005; 99282

== ENCOUNTER 2022-07-06 00:51 | Inpatient (IN) ==
[2022-07-06 02:04] LABS: Hematocrit 34.7 % (38-53); Hemoglobin 11.6 g/dL (13.2-16.3); Mean Corpuscular Hemoglobin 24.2 pg (27-33); Mean Corpuscular Hgb Conc 33.4 g/dL (31-36); Mean Corpuscular Volume 72.5 fL (80-97); Mean Platelet Volume 7.5 fL (7.5-11.2); Platelet Count 254 10^3/uL (150-450); Red Blood Count 4.78 10^6/uL (4.06-5.63); White Blood Count 10.7 10^3/uL (3.6-10.2)
[2022-07-06 02:12] LABS: Activated Partial Thrombo Time 30.2 seconds (26.0-38.0); INR 1.28 (0.88-1.18)
[2022-07-06 02:34] LABS: ABS Basophils 0.1 10^3/uL (0.0-0.1); ABS Eosinophils 0.3 10^3/uL (0.0-0.5); ABS Monocytes 0.8 10^3/uL (0.0-1.1); ABS Neutrophils 7.5 10^3/uL (1.5-7.6); Eosinophil % 2.9 %; Lymphocyte % 18.5 %
[2022-07-06 02:41] LABS: Albumin/Globulin Ratio 1.1 (1-3); C Reactive Protein 218.29 mg/L (<8.01); Calcium 9.4 mg/dL (8.6-10.3); Creatinine, Serum 0.81 mg/dL (0.67-1.17); Globulin 3.7 g/dL (2-4); Total Bilirubin 0.6 mg/dL (0.2-1.0); Total Protein 7.7 g/dL (6.4-8.9); eGFR CKD-EPI 120.9 (>60)
[2022-07-06] MEDS ORDERED: Vancomycin 1,000 MG in NS 0.9% 250 ml 250 ML IVPB ONE (03:08)
[2022-07-06] MEDS ORDERED: Cefepime 2 GM in Dextrose 2 GM/50 ML BAG IV ONE (03:08)
[2022-07-06] MEDS ORDERED: Dextrose 50% Syringe 50 ml 25 GM/50 ML SYRINGE IV PUSH PRN (03:17)
[2022-07-06] MEDS ORDERED: Vancomycin per Pharmacy 1 EA NOTE FOLLOW UP PRN (04:10)
[2022-07-06] MEDS ORDERED: Vancomycin 2,000 MG in NS 0.9% 500 ml BAG 500 ML IVPB ONE (05:00)
[2022-07-06 08:00] LABS: % Iron Saturation 8 % (15-55); .Transferrin 172 mg/dL (203-362); ALT 23 U/L (7-52); AST 12 U/L (13-39); Albumin 3.3 g/dL (3.2-5.2); Albumin/Globulin Ratio 1.1 (1-3); Alkaline Phosphatase 55 U/L (35-149); Anion Gap 6 mmol/L (2-16); Blood Urea Nitrogen 14 mg/dL (6-24); CO2 Carbon Dioxide 29 mmol/L (22-32); Calcium 8.5 mg/dL (8.6-10.3); Chloride 100 mmol/L (101-111); Creatinine, Serum 0.81 mg/dL (0.67-1.17); Globulin 3.1 g/dL (2-4); Glucose 243 mg/dL (70-100); Iron < 20 ug/dL (50-212); Magnesium 1.6 mg/dL (1.9-2.7); Sodium 135 mmol/L (135-145); Total Iron Binding Capacity 241 mcg/dL (250-450); Total Protein 6.4 g/dL (6.4-8.9); Transferrin 172 mg/dL (203-362); Unsaturated Iron Binding 221 ug/dL; eGFR CKD-EPI 120.9 (>60)
[2022-07-06 08:17] LABS: Ferritin 144.1 ng/mL (24-336)
[2022-07-06] MEDS ORDERED: Magnesium Sulfate IV 3 GM in NS 0.9% 100 ml BAG 100 ML IVPB ONE (08:17)
[2022-07-06] MEDS: CMCS: Doxepin 25 mg CAP (NF) PO SCH (09:12)
[2022-07-06] MEDS: CMCS: Glimepiride 2 mg TAB (NF) PO SCH ×2 (09:13→21:38)
[2022-07-06] MEDS: Insulin GLARGINE 100 un/ml 10 ml VIAL SUBCUT SCH ×2 (09:35→21:47)
[2022-07-06 11:04] LABS: ABS Basophils 0.1 10^3/uL (0.0-0.1); ABS Eosinophils 0.3 10^3/uL (0.0-0.5); ABS Lymphocytes 2.1 10^3/uL (1.0-4.8); ABS Monocytes 0.7 10^3/uL (0.0-1.1); ABS Neutrophils 5.8 10^3/uL (1.5-7.6); ABS Nucleated RBC 0.01 10^3/ul; Eosinophil % 3.7 %; Hematocrit 30.8 % (38-53); Hemoglobin 10.2 g/dL (13.2-16.3); Lymphocyte % 23.3 %; Mean Corpuscular Hemoglobin 24.1 pg (27-33); Mean Corpuscular Hgb Conc 33.2 g/dL (31-36); Mean Corpuscular Volume 72.7 fL (80-97); Mean Platelet Volume 7.7 fL (7.5-11.2); Nucleated Red Blood Cells % 0.1 /100 WBC (0.0-0.4); Platelet Count 221 10^3/uL (150-450); Red Blood Count 4.23 10^6/uL (4.06-5.63); Red Cell Distribution Width 16.2 % (12-17); White Blood Count 9.1 10^3/uL (3.6-10.2)
[2022-07-06] MEDS ORDERED: Vancomycin 1,750 MG in NS 0.9% 500 ml BAG 500 ML IVPB SCH (12:00)
[2022-07-06] MEDS ORDERED: Cefepime 2 GM in Dextrose 2 GM/50 ML BAG IV SCH (15:00)
[2022-07-06] MEDS: Vancomycin 1,250 MG in NS 0.9% 250 ml 250 ML IVPB SCH ×2 (16:14→21:40)
[2022-07-06] MEDS: Cefepime 2 GM in Dextrose 2 GM/50 ML BAG IV SCH (17:50)
[2022-07-07] MEDS ORDERED: Vancomycin Trough Check NOTE FOLLOW UP ONE ×2 (03:30→06:00)
[2022-07-07] MEDS: Cefepime 2 GM in Dextrose 2 GM/50 ML BAG IV SCH ×2 (05:05→17:51)
[2022-07-07 06:44] LABS: Potassium 4.3 mmol/L (3.5-5.0)
[2022-07-07 06:50] LABS: Creatinine, Serum 0.63 mg/dL (0.67-1.17); Vancomycin Trough 7.4 mcg/mL; eGFR CKD-EPI 130.4 (>60)
[2022-07-07] MEDS: Vancomycin 1,250 MG in NS 0.9% 250 ml 250 ML IVPB SCH (07:57)
[2022-07-07] MEDS: Insulin GLARGINE 100 un/ml 10 ml VIAL SUBCUT SCH ×2 (08:52→22:10)
[2022-07-07] MEDS: Vancomycin 1,500 MG in NS 0.9% 250 ml 250 ML IVPB SCH ×2 (09:31→15:26)
[2022-07-07] MEDS: CMCS: Doxepin 25 mg CAP (NF) PO SCH (09:41)
[2022-07-07] MEDS: CMCS: Glimepiride 2 mg TAB (NF) PO SCH ×2 (09:41→22:12)
[2022-07-08] MEDS: Vancomycin 1,500 MG in NS 0.9% 250 ml 250 ML IVPB SCH ×2 (00:10→09:08)
[2022-07-08] MEDS: Cefepime 2 GM in Dextrose 2 GM/50 ML BAG IV SCH (04:55)
[2022-07-08] MEDS ORDERED: Vancomycin Trough Check NOTE FOLLOW UP ONE (07:30)
[2022-07-08] MEDS: CMCS: Doxepin 25 mg CAP (NF) PO SCH (08:57)
[2022-07-08] MEDS: CMCS: Glimepiride 2 mg TAB (NF) PO SCH ×2 (08:58→21:55)
[2022-07-08] MEDS: Insulin GLARGINE 100 un/ml 10 ml VIAL SUBCUT SCH ×2 (09:01→21:56)
[2022-07-08 09:50] LABS: ABS Basophils 0.1 10^3/uL (0.0-0.1); ABS Eosinophils 0.3 10^3/uL (0.0-0.5); ABS Lymphocytes 1.7 10^3/uL (1.0-4.8); ABS Monocytes 0.5 10^3/uL (0.0-1.1); ABS Neutrophils 3.1 10^3/uL (1.5-7.6); ABS Nucleated RBC 0.01 10^3/ul; Eosinophil % 5.2 %; Hematocrit 34.4 % (38-53); Hemoglobin 11.3 g/dL (13.2-16.3); Lymphocyte % 30.2 %; Mean Corpuscular Hemoglobin 24.2 pg (27-33); Mean Corpuscular Volume 73.4 fL (80-97); Mean Platelet Volume 7.7 fL (7.5-11.2); Nucleated Red Blood Cells % 0.1 /100 WBC (0.0-0.4); Platelet Count 298 10^3/uL (150-450); Red Blood Count 4.69 10^6/uL (4.06-5.63); Red Cell Distribution Width 15.7 % (12-17); White Blood Count 5.7 10^3/uL (3.6-10.2)
[2022-07-08 10:19] LABS: Creatinine, Serum 0.67 mg/dL (0.67-1.17)
[2022-07-08 10:20] LABS: C Reactive Protein 84.47 mg/L (<8.01); Creatinine, Serum 0.65 mg/dL (0.67-1.17); Potassium 4.8 mmol/L (3.5-5.0); eGFR CKD-EPI 129.2 (>60)
[2022-07-08] MEDS ORDERED: cefTRIAXone 1 gm/50 mL D5W 1 GM/50 ML BAG IV SCH (17:00)
[2022-07-09 05:49] VITALS: BP 153/83
[2022-07-09] MEDS: Insulin GLARGINE 100 un/ml 10 ml VIAL SUBCUT SCH (08:12)
[2022-07-09] MEDS: CMCS: Doxepin 25 mg CAP (NF) PO SCH (08:13)
[2022-07-09] MEDS: CMCS: Glimepiride 2 mg TAB (NF) PO SCH (08:13)
== END 2022-07-09 10:25 | disposition home or self-care (01) | DRG 872 ==
LOC: ED 00:51 → SUATTDRO 03:08 → EDHOLD 03:08 → MEDTELE 12:56
PROVIDERS: ADMIT Hospitalist; ATTEND Internal Medicine

== ENCOUNTER 2022-11-04 10:27 | Inpatient (IN) ==
[~2022-11-04 10:27] MED LIST: metroNIDAZOLE IV 500 MG/100ML 500 MG/100 ML BAG IVPB SCH
[2022-11-04 12:54] LABS: INR 1.19 (0.83-1.13)
[2022-11-04 13:02] LABS: Albumin 3.6 g/dL (3.2-5.2); Magnesium 1.4 mg/dL (1.9-2.7); Potassium 4.3 mmol/L (3.5-5.0); Total Bilirubin 0.4 mg/dL (0.2-1.0)
[2022-11-04 13:08] LABS: Albumin/Globulin Ratio 0.9 (1-3); C Reactive Protein 145.67 mg/L (<8.01); Creatinine, Serum 0.71 mg/dL (0.67-1.17); Globulin 4.2 g/dL (2-4); Total Protein 7.8 g/dL (6.4-8.9); eGFR CKD-EPI 125.8 (>60)
[2022-11-04] MEDS ORDERED: Magnesium Sulfate 2 gm BAG 2 GM/50 ML BAG IVPB ONE (13:42)
[2022-11-04] MEDS ORDERED: Vancomycin 1,500 MG in NS 0.9% 250 ml 250 ML IVPB ONE (13:51)
[2022-11-04] MEDS ORDERED: cefTRIAXone 1 gm/50 mL D5W 1 GM/50 ML BAG IV ONE (13:51)
[2022-11-04] MEDS ORDERED: metroNIDAZOLE IV 500 MG/100ML 500 MG/100 ML BAG IVPB ONE (13:51)
[2022-11-04 14:34] LABS: Erythrocyte Sed Rate 67 mm/Hr (0-14)
[2022-11-04] MEDS: NS 0.9% 1000 ml BAG 1,000 ML IV ONE ×2 (14:36→18:42)
[2022-11-04] MEDS ORDERED: Vancomycin per Pharmacy 1 EA NOTE FOLLOW UP SCH (15:00)
[2022-11-04] MEDS ORDERED: metroNIDAZOLE IV 500 MG/100ML 500 MG/100 ML BAG IVPB SCH (15:00)
[2022-11-04] MEDS ORDERED: Dextrose 50% Syringe 50 ml 25 GM/50 ML SYRINGE IV PUSH PRN (15:24)
[2022-11-04 17:01] LABS: Activated Partial Thrombo Time 29.5 seconds (26.0-38.0); INR 1.18 (0.83-1.13)
[2022-11-04 17:05] LABS: Creatinine, Serum 0.64 mg/dL (0.67-1.17); eGFR CKD-EPI 129.8 (>60)
[2022-11-04 19:39] LABS: ABS Basophils 0.1 10^3/uL (0.0-0.1); ABS Eosinophils 0.3 10^3/uL (0.0-0.5); ABS Lymphocytes 1.5 10^3/uL (1.0-4.8); ABS Monocytes 0.8 10^3/uL (0.0-1.1); ABS Neutrophils 6.7 10^3/uL (1.5-7.6); ABS Nucleated RBC 0.01 10^3/ul; Eosinophil % 3.3 %; Hemoglobin 10.3 g/dL (13.2-16.3); Lymphocyte % 16.1 %; Mean Corpuscular Hemoglobin 24.1 pg (27-33); Mean Corpuscular Hgb Conc 33.2 g/dL (31-36); Mean Corpuscular Volume 72.7 fL (80-97); Mean Platelet Volume 7.7 fL (7.5-11.2); Nucleated Red Blood Cells % 0.1 /100 WBC (0.0-0.4); Platelet Count 309 10^3/uL (150-450); Red Blood Count 4.26 10^6/uL (4.06-5.63); Red Cell Distribution Width 15.5 % (12-17); White Blood Count 9.4 10^3/uL (3.6-10.2)
[2022-11-04] MEDS ORDERED: Vancomycin 1,500 MG in NS 0.9% 250 ml 250 ML IVPB SCH (22:00)
[2022-11-05] MEDS: CMCS:Doxepin 25 mg CAP (NF) PO SCH ×2 (00:51→20:48)
[2022-11-05] MEDS: Vancomycin 1,500 MG in NS 0.9% 250 ml 250 ML IVPB SCH ×2 (02:30→14:11)
[2022-11-05] MEDS ORDERED: Vancomycin per Pharmacy 1 EA NOTE FOLLOW UP SCH (03:00)
[2022-11-05 05:15] LABS: CO2 Carbon Dioxide 26 mmol/L (22-32); Calcium 8.4 mg/dL (8.6-10.3); Chloride 95 mmol/L (101-111); Magnesium 1.8 mg/dL (1.9-2.7); Sodium 132 mmol/L (135-145)
[2022-11-05 05:21] LABS: Blood Urea Nitrogen 11 mg/dL (6-24); Creatinine, Serum 0.69 mg/dL (0.67-1.17); Glucose 108 mg/dL (70-100); eGFR CKD-EPI 126.9 (>60)
[2022-11-05 05:24] LABS: Anion Gap 11 mmol/L (2-16)
[2022-11-05 06:15] LABS: ABS Basophils 0.1 10^3/uL (0.0-0.1); ABS Eosinophils 0.3 10^3/uL (0.0-0.5); ABS Lymphocytes 1.7 10^3/uL (1.0-4.8); ABS Monocytes 0.7 10^3/uL (0.0-1.1); ABS Nucleated RBC 0.01 10^3/ul; Eosinophil % 3.5 %; Hematocrit 33.3 % (38-53); Hemoglobin 11.1 g/dL (13.2-16.3); Lymphocyte % 19.5 %; Mean Corpuscular Hemoglobin 24.3 pg (27-33); Mean Corpuscular Hgb Conc 33.2 g/dL (31-36); Mean Platelet Volume 7.2 fL (7.5-11.2); Nucleated Red Blood Cells % 0.1 /100 WBC (0.0-0.4); Platelet Count 289 10^3/uL (150-450); Red Blood Count 4.56 10^6/uL (4.06-5.63); Red Cell Distribution Width 15.3 % (12-17); White Blood Count 8.8 10^3/uL (3.6-10.2)
[2022-11-05] MEDS: metroNIDAZOLE IV 500 MG/100ML 500 MG/100 ML BAG IVPB SCH ×2 (07:28→17:42)
[2022-11-05] MEDS: Heparin 5000 UNITS/ML 1 mL VIAL SUBCUT SCH ×2 (09:51→14:47)
[2022-11-05] MEDS: Insulin GLARGINE 100 un/ml 10 ml VIAL SUBCUT SCH (09:53)
[2022-11-05] MEDS ORDERED: Magnesium Sulfate 2 gm BAG 2 GM/50 ML BAG IVPB ONE (09:58)
[2022-11-05] MEDS ORDERED: Vancomycin Trough Check NOTE FOLLOW UP ONE (13:30)
[2022-11-05] MEDS ORDERED: ceFAZolin 2 GM in NS PREMIX 2 GM/100 ML BAG IVPB SCH (15:00)
[2022-11-05] MEDS ORDERED: cefTRIAXone 2 gm/50 mL D5W 2 GM/50 ML BAG IV SCH (17:00)
[2022-11-05] MEDS: ceFAZolin 2 GM PREMIX 2 GM/50 ML BAG IVPB SCH ×2 (17:40→23:19)
[2022-11-06] MEDS ORDERED: NS 0.9% 1000 ml BAG 1,000 ML IV SCH (06:00)
[2022-11-06] MEDS ORDERED: Buffered Lidocaine 1% SYRIN 1 ml INTRADERM ONE (06:00)
[2022-11-06 07:06] LABS: ABS Eosinophils 0.3 10^3/uL (0.0-0.5); ABS Lymphocytes 1.6 10^3/uL (1.0-4.8); ABS Monocytes 0.6 10^3/uL (0.0-1.1); ABS Neutrophils 3.5 10^3/uL (1.5-7.6); Calcium 8.8 mg/dL (8.6-10.3); Creatinine, Serum 0.7 mg/dL (0.67-1.17); Eosinophil % 4.5 %; Hematocrit 32.6 % (38-53); Hemoglobin 10.5 g/dL (13.2-16.3); Lymphocyte % 26.3 %; Magnesium 1.8 mg/dL (1.9-2.7); Mean Corpuscular Hemoglobin 24.6 pg (27-33); Mean Corpuscular Hgb Conc 32.1 g/dL (31-36); Mean Corpuscular Volume 76.5 fL (80-97); Mean Platelet Volume 7.3 fL (7.5-11.2); Nucleated Red Blood Cells % 0.1 /100 WBC (0.0-0.4); Platelet Count 270 10^3/uL (150-450); Potassium 4.3 mmol/L (3.5-5.0); Red Blood Count 4.26 10^6/uL (4.06-5.63); Red Cell Distribution Width 15.3 % (12-17); eGFR CKD-EPI 126.3 (>60)
[2022-11-06] MEDS ORDERED: Prochlorperazine 5 mg/ml 2 ml VIAL (10 mg) IV PRN (08:30)
[2022-11-06] MEDS ORDERED: Magnesium Sulfate 2 gm BAG 2 GM/50 ML BAG IVPB ONE (08:30)
[2022-11-06] MEDS ORDERED: fentaNYL 100 mcg/2 ml 50 MCG/ML VIAL IV PRN (08:30)
[2022-11-06] MEDS ORDERED: Naloxone 0.4 mg VIAL 0.4 mg/ml 1 ml VIAL IV PRN (08:30)
[2022-11-06] MEDS: Insulin GLARGINE 100 un/ml 10 ml VIAL SUBCUT SCH ×2 (08:48→22:27)
[2022-11-06] MEDS: ceFAZolin 2 GM PREMIX 2 GM/50 ML BAG IVPB SCH ×2 (08:57→18:24)
[2022-11-06] MEDS ORDERED: Vancomycin Trough Check NOTE FOLLOW UP ONE (11:00)
[2022-11-06] MEDS ORDERED: D5W 1000 ml BAG 1,000 ML IV SCH (12:00)
[2022-11-06] MEDS ORDERED: D5NS 0.9% 1000 ml BAG 1,000 ML IV SCH (13:00)
[2022-11-06] MEDS ORDERED: ceFAZolin *3* GM in NS PREMIX 3 GM/100 ML BAG IV ONE (14:20)
[2022-11-06] MEDS ORDERED: Bupivacaine 0.25% SDV 30 ML ONE (15:53)
[2022-11-06] MEDS ORDERED: Acetaminophen IV 1 GM/100ML 0 MG/0 ML BAG IV ONE (15:56)
[2022-11-06] MEDS ORDERED: Metoclopramide 5 MG/ML VIAL (10 mg) ONE (15:56)
[2022-11-06] MEDS ORDERED: Midazolam 5 mg/5 ml VIAL 1 mg/ml 5 ml VIAL (5 mg) ONE (15:56)
[2022-11-06] MEDS ORDERED: Sodium Citrate/Citric Acid LIQ 15 ML UDC ONE (15:56)
[2022-11-06] MEDS ORDERED: Propofol 10 MG/ML 20 ML BTL ONE (16:16)
[2022-11-06] MEDS ORDERED: Lidocaine 2% PF 5 ML VIAL ONE (16:16)
[2022-11-06] MEDS ORDERED: Dexamethasone IV 4 MG/ML VIAL 1 ml VIAL ONE (16:17)
[2022-11-06] MEDS ORDERED: Ondansetron 4 mg VIAL 2 MG/ML 2 ml VIAL ONE (16:17)
[2022-11-06] MEDS ORDERED: Dexmedetomidine 200 mcg/2 ml 2 ml VIAL (200 mcg) ONE (16:21)
[2022-11-06] MEDS: CMCS:Doxepin 25 mg CAP (NF) PO SCH (21:59)
[2022-11-06] MEDS ORDERED: Dextrose 50% Syringe 50 ml 25 GM/50 ML SYRINGE IV PUSH PRN (23:47)
[2022-11-07] MEDS: ceFAZolin 2 GM PREMIX 2 GM/50 ML BAG IVPB SCH ×3 (00:14→16:23)
[2022-11-07 06:07] LABS: Hematocrit 31.3 % (38-53); Hemoglobin 10.4 g/dL (13.2-16.3); Mean Corpuscular Hgb Conc 33.1 g/dL (31-36); Mean Corpuscular Volume 72.4 fL (80-97); Mean Platelet Volume 7.3 fL (7.5-11.2); Platelet Count 344 10^3/uL (150-450); Red Blood Count 4.33 10^6/uL (4.06-5.63); Red Cell Distribution Width 15.3 % (12-17); White Blood Count 8.8 10^3/uL (3.6-10.2)
[2022-11-07 06:54] LABS: Creatinine, Serum 0.73 mg/dL (0.67-1.17); Potassium 5.1 mmol/L (3.5-5.0); eGFR CKD-EPI 124.7 (>60)
[2022-11-07] MEDS: Insulin GLARGINE 100 un/ml 10 ml VIAL SUBCUT SCH ×2 (08:22→21:42)
[2022-11-07 08:40] LABS: ABS Lymphocytes 1.2 10^3/uL (1.0-4.8); ABS Monocytes 0.9 10^3/uL (0.0-1.1); ABS Neutrophils 6.6 10^3/uL (1.5-7.6); Eosinophil % 0.2 %
[2022-11-07] MEDS ORDERED: Polyethylene Glycol 3350 17 GM PACKET PO PRN (11:59)
[2022-11-07] MEDS: Heparin 5000 UNITS/ML 1 mL VIAL SUBCUT SCH (20:54)
[2022-11-07] MEDS ORDERED: Insulin GLARGINE 100 un/ml 10 ml VIAL SUBCUT SCH (21:00)
[2022-11-07] MEDS: CMCS:Doxepin 25 mg CAP (NF) PO SCH (21:41)
[2022-11-08] MEDS: ceFAZolin 2 GM PREMIX 2 GM/50 ML BAG IVPB SCH ×3 (00:31→17:29)
[2022-11-08 07:17] LABS: Hematocrit 31.1 % (38-53); Hemoglobin 10.2 g/dL (13.2-16.3); Mean Corpuscular Hemoglobin 23.8 pg (27-33); Mean Corpuscular Hgb Conc 32.7 g/dL (31-36); Mean Corpuscular Volume 72.7 fL (80-97); Mean Platelet Volume 7.3 fL (7.5-11.2); Platelet Count 310 10^3/uL (150-450); Red Blood Count 4.27 10^6/uL (4.06-5.63); Red Cell Distribution Width 15.1 % (12-17); White Blood Count 7.7 10^3/uL (3.6-10.2)
[2022-11-08 07:42] LABS: Calcium 8.8 mg/dL (8.6-10.3); Creatinine, Serum 0.67 mg/dL (0.67-1.17); Magnesium 1.6 mg/dL (1.9-2.7); Potassium 4.5 mmol/L (3.5-5.0)
[2022-11-08] MEDS ORDERED: Magnesium Sulfate IV 3 GM in NS 0.9% 100 ml BAG 100 ML IVPB ONE (08:00)
[2022-11-08] MEDS: Insulin GLARGINE 100 un/ml 10 ml VIAL SUBCUT SCH (08:44)
[2022-11-08] MEDS: Heparin 5000 UNITS/ML 1 mL VIAL SUBCUT SCH (08:52)
[2022-11-08 15:29] VITALS: BP 138/72
== END 2022-11-08 18:32 | disposition home or self-care (01) | DRG 617 ==
LOC: ED 10:27 → SUATTDRO 14:18 → EDHOLD 14:18 → MEDTELE 11-05 14:45
PROVIDERS: ADMIT Internal Medicine; ATTEND Hospitalist

== ENCOUNTER 2023-06-17 01:01 | Inpatient (IN) ==
[2023-06-17 04:31] LABS: ABS Eosinophils 0.3 10^3/uL (0.0-0.5); ABS Lymphocytes 1.8 10^3/uL (1.0-4.8); ABS Monocytes 0.8 10^3/uL (0.0-1.1); ABS Neutrophils 3.6 10^3/uL (1.5-7.6); ABS Nucleated RBC 0.01 10^3/ul; Eosinophil % 5.4 %; Hematocrit 32.9 % (38-53); Hemoglobin 10.9 g/dL (13.2-16.3); Lymphocyte % 27.4 %; Mean Corpuscular Hgb Conc 33.1 g/dL (31-36); Mean Corpuscular Volume 75.4 fL (80-97); Mean Platelet Volume 7.6 fL (7.5-11.2); Nucleated Red Blood Cells % 0.2 %/100WBC (0.0-0.8); Platelet Count 214 10^3/uL (150-450); Red Blood Count 4.36 10^6/uL (4.06-5.63); Red Cell Distribution Width 15.1 % (12-17); White Blood Count 6.5 10^3/uL (3.6-10.2)
[2023-06-17 05:01] LABS: Activated Partial Thrombo Time 30.3 seconds (26.0-38.0); INR 1.22 (0.83-1.13)
[2023-06-17 05:14] LABS: ALT 40 U/L (7-52); AST 24 U/L (13-39); Albumin 3.7 g/dL (3.2-5.2); Albumin/Globulin Ratio 1.3 (1-3); Alkaline Phosphatase 63 U/L (35-149); Anion Gap 8 mmol/L (2-16); Blood Urea Nitrogen 16 mg/dL (6-24); C Reactive Protein 139.38 mg/L (<8.01); CO2 Carbon Dioxide 32 mmol/L (22-32); Calcium 8.7 mg/dL (8.6-10.3); Chloride 100 mmol/L (101-111); Creatinine, Serum 0.74 mg/dL (0.67-1.17); Globulin 2.9 g/dL (2-4); Glucose 145 mg/dL (70-100); Sodium 140 mmol/L (135-145); Total Bilirubin 0.5 mg/dL (0.2-1.0); Total Protein 6.6 g/dL (6.4-8.9); eGFR CKD-EPI 124.2 (>60)
[2023-06-17] MEDS ORDERED: Senna TAB 8.6 mg TAB PO PRN (06:00)
[2023-06-17] MEDS ORDERED: Polyethylene Glycol 3350 17 GM PACKET PO PRN (06:00)
[2023-06-17 06:22] LABS: Erythrocyte Sed Rate 59 mm/Hr (0-14)
[2023-06-17] MEDS ORDERED: Vancomycin 1,000 MG in NS 0.9% 250 ml 250 ML IVPB ONE (06:29)
[2023-06-17 06:31] LABS: % Iron Saturation 8 % (15-55); .Transferrin 184 mg/dL (203-362); Iron 21 ug/dL (50-212); Total Iron Binding Capacity 258 mcg/dL (250-450); Unsaturated Iron Binding 237 ug/dL
[2023-06-17 06:57] LABS: Folate > 20.00 ng/mL (5.90-24.80)
[2023-06-17 06:58] LABS: Vitamin B12 289 pg/mL (180-914)
[2023-06-17] MEDS ORDERED: Nicotine GUM 2MG FRUIT FLAVOR PO PRN (06:58)
[2023-06-17] MEDS ORDERED: Dextrose 50% Syringe 50 ml 25 GM/50 ML SYRINGE IV PUSH PRN (07:00)
[2023-06-17] MEDS ORDERED: Vancomycin per Pharmacy 1 EA NOTE FOLLOW UP SCH (07:00)
[2023-06-17] MEDS: cefTRIAXone 2 gm/50 mL D5W 2 GM/50 ML BAG IV SCH (07:01)
[2023-06-17] MEDS: Lactated Ringers 1000 ml BAG 1,000 ML IV ONE (07:55)
[2023-06-17] MEDS: Vancomycin 2,000 MG in NS 0.9% 500 ml BAG 500 ML IVPB ONE (07:55)
[2023-06-17 08:20] LABS: Urine Benzodiazepine Screen None Detected (None Detect); Urine Cannabinoids Screen None Detected (None Detect); Urine Opiates Screen None Detected (None Detect)
[2023-06-17] MEDS: Doxepin 25 mg CAP (NF) PO SCH (09:51)
[2023-06-17] MEDS: Insulin GLARGINE 100 un/ml 10 ml VIAL SUBCUT SCH (10:32)
[2023-06-17] MEDS: metroNIDAZOLE IV 500 MG/100ML 500 MG/100 ML BAG IVPB SCH (11:42)
[2023-06-17] MEDS: Vancomycin 1,500 MG in NS 0.9% 250 ml 250 ML IVPB SCH ×2 (15:17→22:32)
[2023-06-17] MEDS ORDERED: ceFAZolin VIAL VIAL ONE (17:34)
[2023-06-17] MEDS ORDERED: Bupivacaine 0.25% EPI 200,000 30 ML SDV ONE (17:34)
[2023-06-17] MEDS ORDERED: Ondansetron 4 mg VIAL 2 MG/ML 2 ml VIAL ONE (17:51)
[2023-06-17] MEDS ORDERED: Dexamethasone IV 4 MG/ML VIAL 1 ml VIAL ONE (17:51)
[2023-06-17] MEDS ORDERED: Lidocaine 2% PF 5 ML VIAL ONE (17:51)
[2023-06-17] MEDS ORDERED: Succinylcholine 200 mg VIAL 20 mg/ml 10 ml VIAL (200 mg) ONE (17:51)
[2023-06-17] MEDS ORDERED: Propofol 10 MG/ML 20 ML BTL ONE (17:51)
[2023-06-17] MEDS ORDERED: Midazolam 2 mg/2 ml VIAL 1 mg/ml 2 ml VIAL (2 mg) ONE (17:52)
[2023-06-17] MEDS ORDERED: fentaNYL 100 mcg/2 ml 50 MCG/ML VIAL ONE ×2 (17:52→18:41)
[2023-06-17] MEDS ORDERED: Bupivacaine 0.5% 50 ML MDV VIAL ONE (18:14)
[2023-06-17] MEDS ORDERED: Rocuronium 50 mg VIAL 10 mg/ml 5 ml VIAL (50 mg) ONE (18:35)
[2023-06-17] MEDS ORDERED: KETAMINE HCL 10 MG/ML 20 ml VIAL (200 MG) ONE (18:39)
[2023-06-17] MEDS ORDERED: Glycopyrrolate IV 0.2 MG/ML 1 ML VIAL ONE (18:50)
[2023-06-17 19:45] LABS: Alcohol, S < 13 mg/dL (<13)
[2023-06-17] MEDS ORDERED: Magnesium Hydroxide LIQ 30 ML UDC PO PRN (21:45)
[2023-06-17] MEDS ORDERED: Morphine 2 MG/ML SYRINGE IV PRN (21:45)
[2023-06-17] MEDS: Lactulose 30 ml UDC PO SCH (22:10)
[2023-06-17] MEDS: Magnesium Hydroxide LIQ 30 ML UDC PO SCH (22:11)
[2023-06-18] MEDS: metroNIDAZOLE IV 500 MG/100ML 500 MG/100 ML BAG IVPB SCH (00:40)
[2023-06-18 06:22] LABS: ABS Eosinophils 0.1 10^3/uL (0.0-0.5); ABS Lymphocytes 1.2 10^3/uL (1.0-4.8); ABS Monocytes 0.5 10^3/uL (0.0-1.1); ABS Nucleated RBC 0.01 10^3/ul; Eosinophil % 0.9 %; Hematocrit 34.5 % (38-53); Hemoglobin 11.3 g/dL (13.2-16.3); Lymphocyte % 17.9 %; Mean Corpuscular Hemoglobin 24.9 pg (27-33); Mean Corpuscular Hgb Conc 32.9 g/dL (31-36); Mean Corpuscular Volume 75.7 fL (80-97); Mean Platelet Volume 7.9 fL (7.5-11.2); Nucleated Red Blood Cells % 0.1 %/100WBC (0.0-0.8); Platelet Count 248 10^3/uL (150-450); Red Blood Count 4.55 10^6/uL (4.06-5.63); Red Cell Distribution Width 15.2 % (12-17); White Blood Count 6.8 10^3/uL (3.6-10.2)
[2023-06-18 06:38] LABS: Calcium 8.5 mg/dL (8.6-10.3); Creatinine, Serum 0.82 mg/dL (0.67-1.17); Potassium 4.8 mmol/L (3.5-5.0); Vancomycin Trough 10.1 mcg/mL; eGFR CKD-EPI 120.4 (>60)
[2023-06-18] MEDS: Enoxaparin 40 MG/0.4 ML SYR SUBCUT SCH (11:14)
[2023-06-18] MEDS: Vancomycin Trough Check NOTE FOLLOW UP ONE (12:24)
[2023-06-18 14:08] VITALS: BP 124/76
[2023-06-20] MEDS ORDERED: Vancomycin Trough Check NOTE FOLLOW UP ONE (05:30)
== END 2023-06-18 17:00 | disposition home or self-care (01) | DRG 603 ==
LOC: EDHOLD 01:01 → ED 01:01 → OBSVTOIN 05:50 → SUATTDRO 05:50 → AA 13:32 → SSU 21:18
PROVIDERS: ADMIT Internal Medicine; ATTEND Student in an Organized Health Care Education/Training Program

== ENCOUNTER 2023-09-12 11:43 | Inpatient (IN) ==
[2023-09-12] MEDS ORDERED: metroNIDAZOLE IV 500 MG/100ML 500 MG/100 ML BAG IVPB ONE (12:51)
[2023-09-12] MEDS ORDERED: cefTRIAXone 2 GM ADDV.VIAL 2 GM in NS 0.9% 100 ml BAG 100 ML IV ONE (12:51)
[2023-09-12] MEDS: metroNIDAZOLE IV 500 MG/100ML 500 MG/100 ML BAG IVPB ONE (15:14)
[2023-09-12] MEDS ORDERED: cefTRIAXone 2 gm/50 mL D5W 2 GM/50 ML BAG IV ONE (15:15)
[2023-09-12] MEDS: NS 0.9% 1000 ml BAG 1,000 ML IV SCH (15:15)
[2023-09-12] MEDS ORDERED: Dextrose 50% Syringe 50 ml 25 GM/50 ML SYRINGE IV PUSH PRN (15:19)
[2023-09-12] MEDS ORDERED: Vancomycin per Pharmacy 1 EA NOTE FOLLOW UP SCH (16:00)
[2023-09-12] MEDS: Vancomycin 1,500 MG in NS 0.9% 250 ml 250 ML IVPB ONE (16:41)
[2023-09-12] MEDS: Cefepime 2 GM in Dextrose 2 GM/50 ML BAG IV SCH (18:29)
[2023-09-12] MEDS: GLIMEPIRIDE 2 MG PO SCH (18:32)
[2023-09-12] MEDS: DOXEPIN 25 MG PO SCH (21:59)
[2023-09-12] MEDS: Insulin GLARGINE 100 un/ml 10 ml VIAL SUBCUT SCH (23:20)
[2023-09-13] MEDS: Iodixanol (CONTRAST) 320 MG/ML 100 ML SDV IV ONE (02:03)
[2023-09-13] MEDS: Aspirin EC 81 mg TAB.EC (enteric coated) PO SCH (08:47)
[2023-09-13 10:05] LABS: ABS Eosinophils 0.3 10^3/uL (0.0-0.5); ABS Lymphocytes 2.2 10^3/uL (1.0-4.8); ABS Monocytes 1.3 10^3/uL (0.0-1.1); ABS Neutrophils 3.7 10^3/uL (1.5-7.6); Anisocytosis 1+; Eosinophil % 3.7 %; Hematocrit 33.4 % (38-53); Hemoglobin 10.6 g/dL (13.2-16.3); Mean Corpuscular Hemoglobin 23.5 pg (27-33); Mean Corpuscular Hgb Conc 31.8 g/dL (31-36); Mean Corpuscular Volume 73.9 fL (80-97); Mean Platelet Volume 8.3 fL (7.5-11.2); Platelet Count 281 10^3/uL (150-450); Polychromasia 1+; Red Blood Count 4.52 10^6/uL (4.06-5.63); Red Cell Distribution Width 15.8 % (12-17); White Blood Count 7.6 10^3/uL (3.6-10.2)
[2023-09-13 10:16] LABS: Anion Gap 12 mmol/L (2-16); Blood Urea Nitrogen 15 mg/dL (6-24); C Reactive Protein 216.19 mg/L (<8.01); CO2 Carbon Dioxide 22 mmol/L (22-32); Calcium 8.5 mg/dL (8.6-10.3); Chloride 98 mmol/L (101-111); Creatinine, Serum 0.74 mg/dL (0.67-1.17); Glucose 196 mg/dL (70-100); Sodium 132 mmol/L (135-145); eGFR CKD-EPI 123.5 (>60)
[2023-09-13] MEDS ORDERED: Vancomycin per Pharmacy 1 EA NOTE FOLLOW UP SCH (14:00)
[2023-09-13] MEDS: Vancomycin 2,000 MG in NS 0.9% 500 ml BAG 500 ML IVPB ONE (16:58)
[2023-09-13] MEDS: Insulin GLARGINE 100 un/ml 10 ml VIAL SUBCUT SCH (21:19)
[2023-09-14] MEDS: Vancomycin 1,250 MG in NS 0.9% 250 ml 250 ML IVPB SCH (00:35)
[2023-09-14] MEDS: Insulin GLARGINE 100 un/ml 10 ml VIAL SUBCUT SCH (20:37)
[2023-09-15 09:49] LABS: Hematocrit 26.8 % (38-53); Hemoglobin 8.7 g/dL (13.2-16.3); Mean Corpuscular Hemoglobin 23.8 pg (27-33); Mean Corpuscular Hgb Conc 32.4 g/dL (31-36); Mean Corpuscular Volume 73.4 fL (80-97); Mean Platelet Volume 7.4 fL (7.5-11.2); Platelet Count 314 10^3/uL (150-450); Red Blood Count 3.65 10^6/uL (4.06-5.63); Red Cell Distribution Width 15.6 % (12-17); White Blood Count 5.7 10^3/uL (3.6-10.2)
[2023-09-15 10:18] LABS: Anion Gap 5 mmol/L (2-16); Blood Urea Nitrogen 13 mg/dL (6-24); C Reactive Protein 98.05 mg/L (<8.01); CO2 Carbon Dioxide 29 mmol/L (22-32); Calcium 8.2 mg/dL (8.6-10.3); Chloride 99 mmol/L (101-111); Glucose 350 mg/dL (70-100); Sodium 133 mmol/L (135-145); eGFR CKD-EPI 125.6 (>60)
[2023-09-15 10:30] LABS: Creatinine, Serum 0.64 mg/dL (0.67-1.17); Vancomycin Trough 8.1 mcg/mL
[2023-09-15 10:39] LABS: Ferritin 196.7 ng/mL (24-336)
[2023-09-15 10:52] LABS: ABS Basophils 0.1 10^3/uL (0.0-0.1); ABS Eosinophils 0.3 10^3/uL (0.0-0.5); ABS Lymphocytes 1.4 10^3/uL (1.0-4.8); ABS Monocytes 0.5 10^3/uL (0.0-1.1); ABS Neutrophils 3.4 10^3/uL (1.5-7.6); ABS Nucleated RBC 0.01 10^3/ul; Eosinophil % 5.7 %; Lymphocyte % 24.6 %; Nucleated Red Blood Cells % 0.1 %/100WBC (0.0-0.8)
[2023-09-15 11:07] LABS: Vitamin B12 336 pg/mL (180-914)
[2023-09-15] MEDS: Vancomycin Trough Check NOTE FOLLOW UP ONE (11:31)
[2023-09-15] MEDS: Vancomycin 1000 MG in NS 0.9% 250 ML IVPB SCH (11:33)
[2023-09-15 12:08] LABS: .Transferrin 134 mg/dL (203-362); Total Iron Binding Capacity 188 mcg/dL (250-450)
[2023-09-15] MEDS: Senna TAB 8.6 mg TAB PO PRN (22:02)
[2023-09-16 08:44] LABS: Hematocrit 29.5 % (38-53); Hemoglobin 9.4 g/dL (13.2-16.3); Mean Corpuscular Hemoglobin 23.1 pg (27-33); Mean Corpuscular Hgb Conc 31.9 g/dL (31-36); Mean Corpuscular Volume 72.4 fL (80-97); Platelet Count 370 10^3/uL (150-450); Red Blood Count 4.08 10^6/uL (4.06-5.63); Red Cell Distribution Width 15.8 % (12-17); White Blood Count 7.5 10^3/uL (3.6-10.2)
[2023-09-16 09:03] LABS: Creatinine, Serum 0.69 mg/dL (0.67-1.17); Potassium 4.5 mmol/L (3.5-5.0); eGFR CKD-EPI 126.1 (>60)
[2023-09-16] MEDS: Insulin GLARGINE 100 un/ml 10 ml VIAL SUBCUT ONE (09:40)
[2023-09-16] MEDS ORDERED: Lidocaine 2% PF 5 ML VIAL ONE (13:21)
[2023-09-16] MEDS ORDERED: Propofol 10 MG/ML 20 ML BTL ONE ×2 (13:21→14:34)
[2023-09-16] MEDS ORDERED: fentaNYL 100 mcg/2 ml 50 MCG/ML VIAL ONE (13:21)
[2023-09-16] MEDS ORDERED: Ondansetron 4 mg VIAL 2 MG/ML 2 ml VIAL ONE (13:21)
[2023-09-16] MEDS ORDERED: Midazolam 5 mg/5 ml VIAL 1 mg/ml 5 ml VIAL (5 mg) ONE (13:21)
[2023-09-16] MEDS ORDERED: Bupivacaine 0.25% SDV 30 ML ONE (13:22)
[2023-09-16] MEDS ORDERED: HYDROmorphone 0.5 MG/0.5 ML SYRINGE ONE (14:30)
[2023-09-16] MEDS ORDERED: KETAMINE HCL 10 MG/ML 20 ml VIAL (200 MG) ONE (14:31)
[2023-09-16] MEDS ORDERED: Metoprolol Tartrate 5 mg VIAL 5 ml VIAL (1 mg/ml) ONE (14:36)
[2023-09-16] MEDS ORDERED: Dexmedetomidine 200 mcg/2 ml 2 ml VIAL (200 mcg) ONE (14:38)
[2023-09-16] MEDS ORDERED: Ondansetron 4 mg VIAL 2 MG/ML 2 ml VIAL IV PRN (16:18)
[2023-09-16] MEDS ORDERED: Naloxone 0.4 mg VIAL 0.4 mg/ml 1 ml VIAL IV PRN (16:18)
[2023-09-16] MEDS: Lactated Ringers 1000 ml BAG 1,000 ML IV SCH (18:18)
[2023-09-16] MEDS: Insulin GLARGINE 100 un/ml 10 ml VIAL SUBCUT SCH (21:32)
[2023-09-17] MEDS ORDERED: Dextrose 50% Syringe 50 ml 25 GM/50 ML SYRINGE IV PUSH PRN (08:15)
[2023-09-17] MEDS: HYDROmorphone 1 MG/1 ML SYRINGE IV SLOW PU PRN (09:20)
[2023-09-17 12:35] LABS: Calcium 8.3 mg/dL (8.6-10.3); Creatinine, Serum 0.74 mg/dL (0.67-1.17); Potassium 4.5 mmol/L (3.5-5.0); eGFR CKD-EPI 123.5 (>60)
[2023-09-17 12:44] LABS: ABS Basophils 0.1 10^3/uL (0.0-0.1); ABS Eosinophils 0.3 10^3/uL (0.0-0.5); ABS Lymphocytes 1.8 10^3/uL (1.0-4.8); ABS Monocytes 0.8 10^3/uL (0.0-1.1); ABS Nucleated RBC 0.01 10^3/ul; Eosinophil % 3.4 %; Hematocrit 23.5 % (38-53); Hemoglobin 7.7 g/dL (13.2-16.3); Lymphocyte % 19.8 %; Mean Corpuscular Hemoglobin 23.7 pg (27-33); Mean Corpuscular Hgb Conc 32.6 g/dL (31-36); Mean Corpuscular Volume 72.6 fL (80-97); Mean Platelet Volume 6.8 fL (7.5-11.2); Nucleated Red Blood Cells % 0.1 %/100WBC (0.0-0.8); Platelet Count 338 10^3/uL (150-450); Red Blood Count 3.24 10^6/uL (4.06-5.63); Red Cell Distribution Width 15.7 % (12-17)
[2023-09-18 06:25] LABS: Hematocrit 23.1 % (38-53); Hemoglobin 7.6 g/dL (13.2-16.3)
[2023-09-18] MEDS: Insulin GLARGINE 100 un/ml 10 ml VIAL SUBCUT SCH (09:30)
[2023-09-18] MEDS: Enoxaparin 40 MG/0.4 ML SYR SUBCUT SCH (10:37)
[2023-09-18] MEDS: Ferric Gluconate IV 250 MG in NS 0.9% 250 ml 200 ML IVPB ONE (11:34)
[2023-09-18 12:34] LABS: Creatinine, Serum 0.66 mg/dL (0.67-1.17); eGFR CKD-EPI 127.8 (>60)
[2023-09-18] MEDS: Vancomycin Trough Check NOTE FOLLOW UP ONE (17:07)
[2023-09-18] MEDS: Vancomycin 2,000 MG in NS 0.9% 500 ml BAG 500 ML IVPB ONE (17:54)
[2023-09-19] MEDS: Vancomycin 1000 MG in NS 0.9% 250 ML IVPB SCH (00:58)
[2023-09-19 11:38] LABS: Hemoglobin 7.9 g/dL (13.2-16.3)
[2023-09-19] MEDS: Vancomycin Trough Check NOTE FOLLOW UP ONE (20:31)
[2023-09-20 06:05] LABS: Hematocrit 26.7 % (38-53); Hemoglobin 8.3 g/dL (13.2-16.3)
[2023-09-20] MEDS: Clotrimazole 1% CREAM 30 gm TOPICAL SCH (20:20)
[2023-09-20] MEDS ORDERED: Clotrimazole 1% CREAM 45 GM TOPICAL SCH (21:00)
[2023-09-20] MEDS: Insulin GLARGINE 100 un/ml 10 ml VIAL SUBCUT SCH (21:41)
[2023-09-21 07:19] LABS: Calcium 8.6 mg/dL (8.6-10.3); Creatinine, Serum 0.7 mg/dL (0.67-1.17); Potassium 4.9 mmol/L (3.5-5.0); eGFR CKD-EPI 125.6 (>60)
[2023-09-21 07:20] LABS: ABS Eosinophils 0.3 10^3/uL (0.0-0.5); ABS Lymphocytes 1.6 10^3/uL (1.0-4.8); ABS Monocytes 0.4 10^3/uL (0.0-1.1); ABS Neutrophils 3.8 10^3/uL (1.5-7.6); ABS Nucleated RBC 0.01 10^3/ul; Eosinophil % 5.4 %; Hematocrit 25.8 % (38-53); Hemoglobin 8.3 g/dL (13.2-16.3); Lymphocyte % 26.3 %; Mean Corpuscular Hemoglobin 23.6 pg (27-33); Mean Corpuscular Hgb Conc 32.1 g/dL (31-36); Mean Corpuscular Volume 73.5 fL (80-97); Mean Platelet Volume 7.2 fL (7.5-11.2); Nucleated Red Blood Cells % 0.2 %/100WBC (0.0-0.8); Platelet Count 331 10^3/uL (150-450); Red Cell Distribution Width 16.3 % (12-17); White Blood Count 6.2 10^3/uL (3.6-10.2)
[2023-09-22 08:38] LABS: Hematocrit 26.5 % (38-53); Hemoglobin 8.7 g/dL (13.2-16.3); Mean Corpuscular Hgb Conc 32.8 g/dL (31-36); Mean Corpuscular Volume 73.3 fL (80-97); Mean Platelet Volume 6.8 fL (7.5-11.2); Platelet Count 348 10^3/uL (150-450); Red Blood Count 3.61 10^6/uL (4.06-5.63); Red Cell Distribution Width 16.4 % (12-17); White Blood Count 6.3 10^3/uL (3.6-10.2)
[2023-09-22] MEDS: Vancomycin Trough Check NOTE FOLLOW UP ONE (08:41)
[2023-09-22 08:46] LABS: Calcium 8.5 mg/dL (8.6-10.3); Creatinine, Serum 0.74 mg/dL (0.67-1.17); Magnesium 1.4 mg/dL (1.9-2.7); Potassium 4.5 mmol/L (3.5-5.0); Vancomycin Trough 10.6 mcg/mL; eGFR CKD-EPI 123.5 (>60)
[2023-09-22 10:03] LABS: ABS Basophils 0.1 10^3/uL (0.0-0.1); ABS Eosinophils 0.4 10^3/uL (0.0-0.5); ABS Lymphocytes 1.9 10^3/uL (1.0-4.8); ABS Monocytes 0.4 10^3/uL (0.0-1.1); ABS Neutrophils 3.6 10^3/uL (1.5-7.6); ABS Nucleated RBC 0.01 10^3/ul; Eosinophil % 5.9 %; Lymphocyte % 29.8 %; Nucleated Red Blood Cells % 0.1 %/100WBC (0.0-0.8)
[2023-09-22] MEDS: Magnesium Sulf 4 GM/100 ML IV 4,000 MG/100 ML BAG IVPB ONE (10:21)
[2023-09-22] MEDS: DALBAVANCIN HCL (NF) 500 MG/25 ML VIAL IVPB ONE (14:06)
[2023-09-22] MEDS: DALVANCE 1500 MG IV ONCE (for CrCl >/= 30 or regular HD) IVPB ONE (14:20)
[2023-09-22 14:58] VITALS: BP 142/85
== END 2023-09-22 15:45 | disposition home or self-care (01) | DRG 616 ==
LOC: ED 11:43 → SUATTDRO 14:45 → EDHOLD 14:45 → MED 21:19 → SSU 09-16 16:11
PROVIDERS: ADMIT Hospitalist; ATTEND Family Medicine